=== PATIENT | female | born 1935 ===

== ENCOUNTER 2019-02-07 20:45 | Inpatient (IN) | payer MEDICARE ==
[2019-02-07] MEDS ORDERED: Morphine 4 MG/ML VIAL IV ONE (22:05)
--- NOTE | 2019-02-07 22:11 | ED PDOC ---
Lower Extremity Pain/Injury Time Seen by Provider: 02/07/19 21:54 Chief Complaint (Nursing): Hip Pain Chief Complaint (Provider): right leg pain History Per: Patient, Family (daughter) History/Exam Limitations: no limitations Onset/Duration Of Symptoms: Hrs (1) Current Symptoms Are (Timing): Still Present Additional Complaint(s): 83 y/o female brought in by EMS with daughter for evaluation of right leg pain status-post fall prior to arrival. Daughter states they were leaving a restaurant and patient didn't realize there was a second step after the first step out of the restaurant and fell onto right side and then hit head on fence after initial fall. Patient complaining of pain to right thigh, worse with movement. LOC unknown. Denies headache, dizziness, nausea/vomiting, numbness/weakness of extremities. Past Medical History Reviewed: Historical Data, Nursing Documentation, Vital Signs Vital Signs: Last Vital Signs Temp 97.6 F 02/07/19 20:55 Pulse 74 02/07/19 20:55 Resp 16 02/07/19 20:55 BP 133/66 02/07/19 20:55 Pulse Ox 98 02/07/19 20:55 - Medical History PMH: No Chronic Diseases - Surgical History Surgical History: Appendectomy - Family History Family History: States: No Known Family Hx - Allergies Allergies/Adverse Reactions: Allergies Allergy/AdvReac Type Severity Reaction Status Date / Time No Known Allergies Allergy Verified 02/07/19 20:55 Review of Systems ROS Statement: Except As Marked, All Systems Reviewed And Found Negative Musculoskeletal: Positive for: Leg Pain (right ) Physical Exam - Reviewed Nursing Documentation Reviewed: Yes Vital Signs Reviewed: Yes - Physical Exam Appears: Positive for: Well, Non-toxic, Uncomfortable Head Exam: Positive for: ATRAUMATIC, NORMAL INSPECTION, NORMOCEPHALIC Skin: Positive for: Normal Color Eye Exam: Positive for: Normal appearance ENT: Positive for: Normal ENT Inspection Cardiovascular/Chest: Positive for: Regular Rate, Rhythm Respiratory: Positive for: Normal Breath Sounds Gastrointestinal/Abdominal: Positive for: Normal Exam Back: Positive for: Normal Inspection Extremity: Positive for: Tenderness (proximal right medial thigh; no ecchymosis, edema, noted. + right external rotation. Limited ROm due to pain. Distal NV/motor intact), Capillary Refill (<3 sec b/l LE) Neurological/Psych: Positive for: Awake, Alert, Oriented (x3) - Laboratory Results Result Diagrams: 02/07/19 23:50 02/07/19 23:50 - ECG ECG: Positive for: Viewed By Me (reviewed by ED attending) ECG Rhythm: Positive for: Sinus Rhythm O2 Sat by Pulse Oximetry: 98 - Radiology X-Ray: Viewed By Me X-Ray Interpretation: No Acute Disease ((patient wearing underwire bra and girdle)) - Progress ED Course And Treament: -right femur xray -right hip xray -CT head -IV morphine EXAM: CT Head without Intravenous Contrast. CLINICAL HISTORY: Fall TECHNIQUE: Axial computed tomography images of the head/brain without intravenous contrast. 727.10 mGy-cm COMPARISON: None provided. FINDINGS: BRAIN No acute intraparenchymal hemorrhage. No mass lesion. No CT evidence for acute territorial infarct. No midline shift or extra-axial collections. Moderate age appropriate cerebral/cerebellar atrophy is noted. There are bilateral pe riventricular and subcortical white matter hypolucencies compatible with mild chronic microvascular disease. VENTRICLES: No hydrocephalus. ORBITS: The orbits are unremarkable. SINUSES AND MASTOIDS: The paranasal sinuses and mastoid air cells are clear. BONES: No fracture. SOFT TISSUES: Unremarkable. IMPRESSION: 1. No acute intracranial abnormality. 2. Moderate age appropriate cerebral/cerebellar atrophy. 3. Mild chronic microvascular disease EXAM: CR right Hip, 2 View. CLINICAL HISTORY: Fall COMPARISON: None provided. FINDINGS: BONES: There is diffuse osteoporosis. A comminuted intertrochanteric-subtrochanteric fracture of the right femoral neck is identified. There is some coxa plana angulation deformity at the fracture site present. No aggressive appearing osseous lesion. JOINTS: No dislocation. Mild arthritic narrowing is seen within both SI joints. The hip joint spaces are normal. SOFT TISSUES: The soft tissues are unremarkable. IMPRESSION: 1. Comminuted intertrochanteric-subtrochanteric fracture of the right femur. 2. Mild arthritic narrowing of both SI joints Case discussed with Dr. Florian, medical service on-call, for admission Case discussed with Dr. Marks, Ortho on-call for consult; recommends CT hip CT scan of the right hip without contrast. Indication: Fracture. Technique: Axial CT scan images without contrast. Reformatted coronal and sagittal images. Comparison: 02/07/2019. Findings: Moderate osteopenia of the bones. Acute comminuted displaced right intertrochanteric fracture. There are changes of degenerative joint disease. Impression: Acute comminuted displaced right intertrochanteric fracture Disposition - Clinical Impression Clinical Impression: Fracture, intertrochanteric, right femur - Patient ED Disposition Is Patient to be Admitted: Yes - Disposition Disposition Time: 00:15 Condition: FAIR
[2019-02-07 23:59] LABS: BASO # 0.1 K/uL (0.0-0.2); BASO % 0.6 % (0.0-2.0); EOS % 0.3 % (0.0-4.0); HEMOGLOBIN 12.7 g/dL (12.0-16.0); LYMPH # 1.4 K/uL (1.0-4.3); LYMPH % 11.1 % (20.0-40.0); MEAN CELL VOLUME 95.8 fl (81.0-99.0); MEAN CORPUSCULAR HEMOGLOBIN 31.7 pg (27.0-31.0); MEAN CORPUSCULAR HGB CONC 33.1 g/dL (33.0-37.0); MEAN PLATELET VOLUME 7.8 fl (7.2-11.7); MONO # 0.5 K/uL (0.0-0.8); NEUT # 10.2 K/uL (1.8-7.0); NRBC % 0.1 % (0.0-0.0); RED CELL DISTRIBUTION WIDTH 14.5 % (11.5-14.5); WHITE BLOOD COUNT 12.2 K/uL (4.8-10.8)
[2019-02-08 00:04] LABS: PROTHROMBIN TIME 11.7 Seconds (9.8-13.1)
[2019-02-08 00:08] LABS: ALB/GLOB RATIO 1.4 (1.0-2.1); ALT/SGPT 26 U/L (9-52); AST/SGOT 30 U/L (14-36); BLOOD UREA NITROGEN 25 mg/dl (7-17); CALCIUM 8.9 mg/dL (8.4-10.2); GFR NON-AFRICAN AMERICAN > 60
[2019-02-08] MEDS ORDERED: Morphine 4 MG/ML VIAL IV PRN (04:30)
[2019-02-08] MEDS: Dextrose 5%/0.45% NS 1,000 ML IV SCH ×3 (06:51→20:45)
--- NOTE | 2019-02-08 09:02 | CP.PCM.CON ---
History of Present Illness - History of Present Illness History of Present Illness: 83 y/o female admitted with Fx Right Femur after a trip and fall Pt has no medical illnesses EKG: Normal Sinus Rhythm Echo: Good LV function EF: 65 - 70% Labs: WNL Past Patient History - Past Medical History & Family History Past Medical History?: Yes - Past Social History Smoking Status: Never Smoked - CARDIAC Hx Cardiac Disorders: No - PULMONARY Hx Respiratory Disorders: No - NEUROLOGICAL Hx Neurological Disorder: No - HEENT Hx HEENT Problems: No - RENAL Hx Chronic Kidney Disease: No - ENDOCRINE/METABOLIC Hx Endocrine Disorders: No - HEMATOLOGICAL/ONCOLOGICAL Hx Blood Disorders: No - INTEGUMENTARY Hx Dermatological Problems: No - MUSCULOSKELETAL/RHEUMATOLOGICAL Hx Musculoskeletal Disorders: No - GASTROINTESTINAL Hx Gastrointestinal Disorders: No - GENITOURINARY/GYNECOLOGICAL Hx Genitourinary Disorders: No - PSYCHIATRIC Hx Psychophysiologic Disorder: No - SURGICAL HISTORY Hx Surgeries: Yes Hx Appendectomy: Yes - ANESTHESIA Hx Anesthesia: Yes Hx Anesthesia Reactions: No Meds Allergies/Adverse Reactions: Allergies Allergy/AdvReac Type Severity Reaction Status Date / Time No Known Allergies Allergy Verified 02/07/19 20:55 - Medications Medications: Current Medications Acetaminophen (Tylenol 325mg Tab) 650 mg PO Q4 PRN PRN Reason: Pain, Mild (1-3) Dextrose/Sodium Chloride (Dextrose 5%/0.45% Ns 1000 Ml) 1,000 mls @ 80 mls/hr IV .[id number] JAY[facility] Stop: 02/09/19 06:16 Last Admin: 02/08/19 06:51 Dose: 80 mls/hr Ketorolac Tromethamine (Toradol) 30 mg IVP Q6 PRN PRN Reason: Pain, moderate (4-7) Morphine Sulfate (Morphine) 2 mg IVP Q4 PRN PRN Reason: Pain, severe (8-10) Physical Exam - Respiratory Exam Respiratory Exam: NORMAL BREATHING PATTERN - Cardiovascular Exam Cardiovascular Exam: REGULAR RHYTHM Results - Vital Signs Recent Vital Signs: Last Vital Signs Temp 97.7 F 02/08/19 08:07 Pulse 79 02/08/19 08:07 Resp 18 02/08/19 08:07 BP 118/65 02/08/19 08:07 Pulse Ox 93 L 02/08/19 08:07 - Labs Result Diagrams: 02/07/19 23:50 02/07/19 23:50 Labs: Laboratory Results - last 24 hr 02/07/19 02/07/19 02/07/19 23:50 23:50 23:50 WBC 12.2 H RBC 4.00 Hgb 12.7 Hct 38.3 MCV 95.8 MCH 31.7 H MCHC 33.1 RDW 14.5 Plt Count 223 MPV 7.8 Neut % (Auto) 84.0 H Lymph % (Auto) 11.1 L [place] % (Auto) 4.0 Eos % (Auto) 0.3 Baso % (Auto) 0.6 Neut # (Auto) 10.2 H Lymph # (Auto) 1.4 [place] # (Auto) 0.5 Eos # (Auto) 0.0 Baso # (Auto) 0.1 PT 11.7 INR 1.0 APTT 29.0 Sodium 139 Potassium 4.4 Chloride 101 Carbon Dioxide 28 Anion Gap 14 BUN 25 H Creatinine 0.8 Est GFR ( Amer) > 60 Est GFR (Non-Af Amer) > 60 Random Glucose 117 H Calcium 8.9 Total Bilirubin 0.5 AST 30 ALT 26 Alkaline Phosphatase 63 Total Protein 6.9 Albumin 4.0 Globulin 2.9 Albumin/Globulin Ratio 1.4 Assessment & Plan (1) Fracture, intertrochanteric, right femur Assessment and Plan: Cardiac nunez the patient is cleared for surgery at any time Status: Acute
--- NOTE | 2019-02-08 09:04 | CT ---
Date of service: 02/07/2019 PROCEDURE: CT HEAD WITHOUT CONTRAST. HISTORY: fall COMPARISON: None available. TECHNIQUE: Axial computed tomography images were obtained through the head/brain without intravenous contrast. Radiation dose: Total exam DLP = 727.1 mGy-cm. This CT exam was performed using one or more of the following dose reduction techniques: Automated exposure control, adjustment of the mA and/or kV according to patient size, and/or use of iterative reconstruction technique. FINDINGS: HEMORRHAGE: No intracranial hemorrhage. BRAIN: There are mild chronic microangiopathic changes. There is no mass, mass effect or abnormal extra-axial fluid collection. There is no territorial infarction. The midline sagittal structures are normal. VENTRICLES: There is mild age-related global parenchymal volume loss and proportionate enlargement of the ventricles and cortical sulci. CALVARIUM: There is no calvarial fracture or extracranial soft tissue swelling. PARANASAL SINUSES: Predominantly clear. MASTOID AIR CELLS: Predominantly clear. OTHER FINDINGS: None. IMPRESSION: No acute intracranial abnormality. A preliminary report was provided by [employer].
--- NOTE | 2019-02-08 09:13 | CP.PCM.CON ---
History of Present Illness - History of Present Illness History of Present Illness: Orthopedic consult: Dr. Rodríguez Patient is an 83 y/o female c/o R hip pain following fall injury in front of a restaurant yesterday. Daughter is at bedside who witnessed fall as she was exiting restaurant and fell down two steps onto her right side. She experienced severe R hip pain and was unable to get up and WB. She did hit her head but did not have LOC or dizziness. She denies any other injuries. The pain is sharp and stabbing and located to the right groin. The pain worsens with movement and alleviates with inactivity. She denies numbness/tingling/radiation of pain. She denies any CP/SOB/N/V/D/fever/dysuria/melena. She is from [place] and is visiting for the weekend. PMH: denies PSH: , appendectomy meds: as per Med rec allergy: NKDA SH: denies tobacco/ETOH/drug use Review of Systems - Review of Systems All systems: reviewed and no additional remarkable complaints except Review of Systems: as per HPI Past Patient History - Past Medical History & Family History Past Medical History?: Yes Past Family History: Reviewed and not pertinent - Past Social History Smoking Status: Never Smoked - CARDIAC Hx Cardiac Disorders: No - PULMONARY Hx Respiratory Disorders: No - NEUROLOGICAL Hx Neurological Disorder: No - HEENT Hx HEENT Problems: No - RENAL Hx Chronic Kidney Disease: No - ENDOCRINE/METABOLIC Hx Endocrine Disorders: No - HEMATOLOGICAL/ONCOLOGICAL Hx Blood Disorders: No - INTEGUMENTARY Hx Dermatological Problems: No - MUSCULOSKELETAL/RHEUMATOLOGICAL Hx Musculoskeletal Disorders: No - GASTROINTESTINAL Hx Gastrointestinal Disorders: No - GENITOURINARY/GYNECOLOGICAL Hx Genitourinary Disorders: No - PSYCHIATRIC Hx Psychophysiologic Disorder: No - SURGICAL HISTORY Hx Surgeries: Yes Hx Appendectomy: Yes - ANESTHESIA Hx Anesthesia: Yes Hx Anesthesia Reactions: No Meds Allergies/Adverse Reactions: Allergies Allergy/AdvReac Type Severity Reaction Status Date / Time No Known Allergies Allergy Verified 02/07/19 20:55 - Medications Medications: Current Medications Acetaminophen (Tylenol 325mg Tab) 650 mg PO Q4 PRN PRN Reason: Pain, Mild (1-3) Dextrose/Sodium Chloride (Dextrose 5%/0.45% Ns 1000 Ml) 1,000 mls @ 80 mls/hr IV .[id number] [facility] Stop: 02/09/19 06:16 Last Admin: 02/08/19 06:51 Dose: 80 mls/hr Ketorolac Tromethamine (Toradol) 30 mg IVP Q6 PRN PRN Reason: Pain, moderate (4-7) Morphine Sulfate (Morphine) 2 mg IVP Q4 PRN PRN Reason: Pain, severe (8-10) Last Admin: 02/08/19 09:02 Dose: 2 mg Physical Exam - Constitutional Appears: Well, No Acute Distress - Head Exam Head Exam: ATRAUMATIC, NORMOCEPHALIC - Eye Exam Eye Exam: EOMI, Normal appearance - ENT Exam ENT Exam: Mucous Membranes Moist - Respiratory Exam Respiratory Exam: NORMAL BREATHING PATTERN - Extremities Exam Additional comments: R hip: no lesions/masses/erythema tenderness to groin and over greater troch sensation intact SP/DP/TN motor intact EHL/FHL/TA/G pedal pulse intact calves soft NT b/l L hip: no lesions/masses/erythema no tenderness sensation intact SP/DP/TN motor intact EHL/FHL/TA/G pedal pulse intact - Neurological Exam Neurological exam: Alert, Oriented x3 Results - Vital Signs Recent Vital Signs: Last Vital Signs Temp 97.7 F 02/08/19 08:07 Pulse 79 02/08/19 08:07 Resp 18 02/08/19 08:07 BP 118/65 02/08/19 08:07 Pulse Ox 93 L 02/08/19 08:07 - Labs Result Diagrams: 02/07/19 23:50 02/07/19 23:50 Labs: Laboratory Results - last 24 hr 02/07/19 02/07/19 02/07/19 23:50 23:50 23:50 WBC 12.2 H RBC 4.00 Hgb 12.7 Hct 38.3 MCV 95.8 MCH 31.7 H MCHC 33.1 RDW 14.5 Plt Count 223 MPV 7.8 Neut % (Auto) 84.0 H Lymph % (Auto) 11.1 L Hunt % (Auto) 4.0 Eos % (Auto) 0.3 Baso % (Auto) 0.6 Neut # (Auto) 10.2 H Lymph # (Auto) 1.4 Hunt # (Auto) 0.5 Eos # (Auto) 0.0 Baso # (Auto) 0.1 PT 11.7 INR 1.0 APTT 29.0 Sodium 139 Potassium 4.4 Chloride 101 Carbon Dioxide 28 Anion Gap 14 BUN 25 H Creatinine 0.8 Est GFR ( Amer) > 60 Est GFR (Non-Af Amer) > 60 Random Glucose 117 H Calcium 8.9 Total Bilirubin 0.5 AST 30 ALT 26 Alkaline Phosphatase 63 Total Protein 6.9 Albumin 4.0 Globulin 2.9 Albumin/Globulin Ratio 1.4 - Impressions Impression: Accession No. : [id number] Patient Name / ID : VERONIQUE Nguyễn / [id number] Exam Date : 02/07/2019 22:48:40 ( Approved ) Study Comment : Sex / Age : F / 83Y Creator : rashmi ridley Dictator : Palmer Sue MD [employer] : Medical Records Director : Palmer Sue MD Approver2 : Report Date : 02/07/2019 23:10:23 My Comment : Date of service: 02/07/2019 PROCEDURE: Pelvis/right hip HISTORY: fall COMPARISON: February 07, 2019. TECHNIQUE: Standard protocol for this study/examination. FINDINGS: Redemonstration of known right inter trochanteric fracture. Mild degenerative changes both hips. Intact pelvic ring bilaterally. IMPRESSION: Comminuted intertrochanteric fracture proximal right femur. Concordant findings (preliminary report) provided by [facility] [[email or web address]] IVÁN. Accession No. : [id number] Patient Name / ID : VERONIQUE Nguyễn / [id number] Exam Date : 02/08/2019 00:26:25 ( Approved ) Study Comment : Sex / Age : F / 83Y Creator : Palmer Sue MD Dictator : Palmer Sue MD [employer] : Medical Records Director : Palmer Sue MD Approver2 : Report Date : 02/08/2019 16:12:27 My Comment : Date of service: 02/08/2019 PROCEDURE: CT right hemipelvis HISTORY: fracture COMPARISON: February 07, 2019. Plain film radiographs TECHNIQUE: 2.5 mm axial acquisition and display. Coronal and sagittal reconstructions. Supplemental 3D volume rendering dose report (mGy-cm): 581.63 FINDINGS: Impacted, comminuted fracture proximal right femur. Avulsion of the lesser trochanter. Slightly displaced transverse fracture through the greater trochanter. Preservation of femoral acetabular relationship. No pelvic ring abnormalities detected. Soft tissue swelling at the site of the fracture and intramuscular hematoma identified within the iliacus muscle. IMPRESSION: Acute and comminuted proximal femoral fracture described in greater detail above. Concordant results (preliminary interpretation) provided by [facility]. Procedure Completed: 00:28. Preliminary Report: Interpreted and electronically signed: 00:56. Final Interpretation: 16:12. February 08, 2019 Assessment & Plan (1) Fracture, intertrochanteric, right femur Assessment and Plan: Dr. Rodríguez recommends R hip ORIF with IM nail NPO pMN hold anticoagulants b/l SCD bucks traction medical/cardiac clearance appreciated Risks/benefits/alternatives explained to the patient and daughter who agree to proceed with above procedure above d/w Dr. Rodríguez in agreement Status: Acute - Date & Time Date: 02/08/19 Time: 08:30
--- NOTE | 2019-02-08 09:19 | CARD ---
APPROVED REPORT Date of service: 02/08/2019 EKG Measurement Heart [id number] <Conclusion> Normal sinus rhythm Inferior infarct, age undetermined Abnormal ECG
--- NOTE | 2019-02-08 10:47 | RAD ---
Date of service: 02/07/2019 PROCEDURE: Right femur HISTORY: fall, leg pain COMPARISON: February 08, 2019 CT pelvis-right hip TECHNIQUE: Standard protocol for this study/examination. FINDINGS: Comminuted intertrochanteric fracture with avulsion of the lesser trochanter and adjacent major fracture fragment. Preservation of femoral acetabular relationship. No visible pelvic ring abnormalities. Distally, incomplete visualization of degenerative changes right knee. IMPRESSION: Comminuted intertrochanteric fracture proximal right femur.
--- NOTE | 2019-02-08 10:48 | RAD ---
Date of service: 02/07/2019 PROCEDURE: Pelvis/right hip HISTORY: fall COMPARISON: February 07, 2019. TECHNIQUE: Standard protocol for this study/examination. FINDINGS: Redemonstration of known right inter trochanteric fracture. Mild degenerative changes both hips. Intact pelvic ring bilaterally. IMPRESSION: Comminuted intertrochanteric fracture proximal right femur. Concordant findings (preliminary report) provided by [facility].
--- NOTE | 2019-02-08 10:59 | RAD ---
Date of service: 02/08/2019 HISTORY: admit COMPARISON: No prior. FINDINGS: LUNGS: No active pulmonary disease. PLEURA: No significant pleural effusion identified, no pneumothorax apparent. CARDIOVASCULAR: No atherosclerotic calcification present No radiographic findings to suggest acute or significant cardiovascular disease. OSSEOUS STRUCTURES: No significant abnormalities. VISUALIZED UPPER ABDOMEN: Normal. OTHER FINDINGS: None. IMPRESSION: No active disease.
[2019-02-08] MEDS ORDERED: Morphine 4 MG/ML VIAL ONE (15:33)
[2019-02-08] MEDS ORDERED: Morphine 4 MG/ML VIAL IVP PRN (15:45)
--- NOTE | 2019-02-08 15:46 | CP.PCM.HP ---
History of Present Illness - History of Present Illness History of Present Illness: CC: Fall/Trauma. 83 y/o F, no chronic PMHx, was brought on 02/07/19 to ER [facility] [place], via EMS, for evaluation of R hip/R leg pain, described as stabbing, throbbing, aching, constant , severe intensity 10:10, as per daughter, associated to a witnessed strip and fall while in a restaurant minutes prior to arrival to ED, Pt with no relief of symptoms. Worsening symptoms: Limited ROM on R leg, swelling R hip. Aggravate factor: Position changes/ lifting/bending/twisting. Denied: Head pain/trauma, fever, chills, n/v/d, abdominal pain, urinary symptoms, CP, syncope, palpitations, SOB, cough, sick contact, recent travel out of [facility]. R Hip CT : Impacted comminuted Fx proximal R Femur. Head CT: No intracranial abnormality. CXR: No active disease. EKG: Normal sinus rhythm, inferior infarct age undetermined. Present on Admission - Present on Admission Any Indicators Present on Admission: No Review of Systems - Constitutional Constitutional: Other (negative) - EENT Eyes: Other (negative) Ears: Other (negative) Nose/Mouth/Throat: Other (negative) - Cardiovascular Cardiovascular: Other (negative) - Respiratory Respiratory: Other (negative) - Gastrointestinal Gastrointestinal: Other (negative) - Genitourinary Genitourinary: Other (negative) - Musculoskeletal Musculoskeletal: Radiating Pain into Limb, Other (R hip and R leg pain 2nd to fall.) - Integumentary Integumentary: Swelling, Other (negative) - Neurological Neurological: Other (negative) - Psychiatric Psychiatric: Other - Endocrine Endocrine: Other (negative) - Hematologic/Lymphatic Hematologic: Other (negative) Past Patient History - Past Medical History & Family History Past Medical History?: Yes Pertinent Family History: Unknown - Past Social History Smoking Status: Never Smoked Alcohol: None Drugs: Denies Home Situation {Lives}: With Family - CARDIAC Hx Cardiac Disorders: No - PULMONARY Hx Respiratory Disorders: No - NEUROLOGICAL Hx Neurological Disorder: No - HEENT Hx HEENT Problems: No - RENAL Hx Chronic Kidney Disease: No - ENDOCRINE/METABOLIC Hx Endocrine Disorders: No - HEMATOLOGICAL/ONCOLOGICAL Hx Blood Disorders: No - INTEGUMENTARY Hx Dermatological Problems: No - MUSCULOSKELETAL/RHEUMATOLOGICAL Hx Musculoskeletal Disorders: No - GASTROINTESTINAL Hx Gastrointestinal Disorders: No - GENITOURINARY/GYNECOLOGICAL Hx Genitourinary Disorders: No - PSYCHIATRIC Hx Psychophysiologic Disorder: No - SURGICAL HISTORY Hx Surgeries: Yes Hx Appendectomy: Yes - ANESTHESIA Hx Anesthesia: Yes Hx Anesthesia Reactions: No Meds Allergies/Adverse Reactions: Allergies Allergy/AdvReac Type Severity Reaction Status Date / Time No Known Allergies Allergy Verified 02/07/19 20:55 Physical Exam - Constitutional Appears: No Acute Distress - Head Exam Head Exam: NORMAL INSPECTION - Eye Exam Eye Exam: PERRL - ENT Exam ENT Exam: Normal Exam - Neck Exam Neck exam: Positive for: Normal Inspection - Respiratory Exam Respiratory Exam: NORMAL BREATHING PATTERN - Cardiovascular Exam Cardiovascular Exam: REGULAR RHYTHM - GI/Abdominal Exam GI & Abdominal Exam: Normal Bowel Sounds, Soft - Extremities Exam Extremities exam: Positive for: tenderness (R hip), pedal pulses present Additional comments: decreased ROM R hip/L/E, lateral rotation RLE, neuromuscular status distal good - Back Exam Back exam: NORMAL INSPECTION - Neurological Exam Neurological exam: Alert, Oriented x3 - Psychiatric Exam Psychiatric exam: Normal Mood - Skin Skin Exam: Normal Color, Warm Results - Vital Signs Recent Vital Signs: Last Vital Signs Temp 97.7 F 02/08/19 08:07 Pulse 79 02/08/19 08:07 Resp 18 02/08/19 08:07 BP 118/65 02/08/19 08:07 Pulse Ox 93 L 02/08/19 08:07 reviewed J.PJignesh - Labs Result Diagrams: 02/07/19 23:50 02/07/19 23:50 Labs: Laboratory Results - last 24 hr 02/07/19 02/07/19 02/07/19 23:50 23:50 23:50 WBC 12.2 H RBC 4.00 Hgb 12.7 Hct 38.3 MCV 95.8 MCH 31.7 H MCHC 33.1 RDW 14.5 Plt Count 223 MPV 7.8 Neut % (Auto) 84.0 H Lymph % (Auto) 11.1 L Rooks % (Auto) 4.0 Eos % (Auto) 0.3 Baso % (Auto) 0.6 Neut # (Auto) 10.2 H Lymph # (Auto) 1.4 Rooks # (Auto) 0.5 Eos # (Auto) 0.0 Baso # (Auto) 0.1 PT 11.7 INR 1.0 APTT 29.0 Sodium 139 Potassium 4.4 Chloride 101 Carbon Dioxide 28 Anion Gap 14 BUN 25 H Creatinine 0.8 Est GFR ( Amer) > 60 Est GFR (Non-Af Amer) > 60 Random Glucose 117 H Calcium 8.9 Total Bilirubin 0.5 AST 30 ALT 26 Alkaline Phosphatase 63 Total Protein 6.9 Albumin 4.0 Globulin 2.9 Albumin/Globulin Ratio 1.4 reviewed J.P. - EKG Data EKG comments: reviewed J.P. - Imaging and Cardiology Chest x-ray Status: Report reviewed by me (JJigneshP.) CT scan - head Status: Report reviewed by me (PatelP.) Hip/Pelvis X-Ray Status: Report reviewed by me Hip CT Status: Report reviewed by me Femur X-Ray Status: Report reviewed by me Assessment & Plan (1) Fracture, intertrochanteric, right femur Status: Acute Priority: High (2) Pain in right hip Status: Acute Priority: High (3) Status post fall Status: Acute Priority: High - Assessment and Plan (Free Text) Plan: Continue Morphine, Toradol, Dextrose IV, NPO after MN, hold anticoagulants, for possible R hip ORIF with IM nail tomorrow, Cardiology and Orthopedic consult appreciated., Patient is medically cleared for Surgery - Date & Time Date: 02/08/19 Time: 14:50
--- NOTE | 2019-02-08 16:16 | CT ---
Date of service: 02/08/2019 PROCEDURE: CT right hemipelvis HISTORY: fracture COMPARISON: February 07, 2019. Plain film radiographs TECHNIQUE: 2.5 mm axial acquisition and display. Coronal and sagittal reconstructions. Supplemental 3D volume rendering dose report (mGy-cm): 581.63 FINDINGS: Impacted, comminuted fracture proximal right femur. Avulsion of the lesser trochanter. Slightly displaced transverse fracture through the greater trochanter. Preservation of femoral acetabular relationship. No pelvic ring abnormalities detected. Soft tissue swelling at the site of the fracture and intramuscular hematoma identified within the iliacus muscle. IMPRESSION: Acute and comminuted proximal femoral fracture described in greater detail above. Concordant results (preliminary interpretation) provided by RASHAD MINOR. Procedure Completed: 00:28. Preliminary Report: Interpreted and electronically signed: 00:56. Final Interpretation: 16:12. February 08, 2019
--- NOTE | 2019-02-08 19:25 | CARD ---
APPROVED REPORT Date of service: 02/08/2019 EXAM: Two-dimensional and M-mode echocardiogram with Doppler and color Doppler. Other Information Quality : AverageRhythm : NSR Technically limited study due to Fractured Hip INDICATION Pre-Op 2D DIMENSIONS IVSd0.84 (0.7-1.1cm)LVDd3.80 (3.9-5.9cm) LVOT Diameter2.03 (1.8-2.4cm)PWd0.87 (0.7-1.1cm) IVSs0.83 (0.8-1.2cm)LVDs2.52 (2.5-4.0cm) FS (%) 33.8 %PWs1.08 (0.8-1.2cm) M-Mode DIMENSIONS Left Atrium (MM)3.68 (2.5-4.0cm)IVSd0.62 (0.7-1.1cm) Aortic Root3.06 (2.2-3.7cm)LVDd6.74 (4.0-5.6cm) Aortic Cusp Exc.1.85 (1.5-2.0cm)PWd1.09 (0.7-1.1cm) IVSs1.12 cmFS (%) 34 % LVDs4.44 (2.0-3.8cm)PWs1.24 cm Aortic Valve AoV Peak Cxfakrah226.7cm/sAoV VTI19.9cmAO Peak GR.4mmHg LVOT Peak Gkfrixgr06.0cm/sLVOT VTI13.45cmAO Mean GR.2mmHg MARCELLO (VMAX)1.17fr5CPG (VTI)1.44cm2 Mitral Valve MV E Qichlmwk99.4cm/sMV DECEL WCIU644olMX A Mkrnukzb76.6cm/s MV YTI48xiW/A ratio0.6MVA (PHT)3.42cm2 TDI Lateral E' Peak V6.52cm/sMedial E' Peak V5.79cm/sE/Lateral E'5.1 E/Medial E'5.8 Tricuspid Valve TR Peak Atdoyzja201mx/sRAP WWGGTIYF08tkZpVO Peak Gr.26mmHg SMBH62cjYq LEFT VENTRICLE The left ventricle is normal size. There is normal left ventricular wall thickness. The left ventricular systolic function is normal. The estimated ejection fraction is 55-60% No regional wall motion abnormalities noted.. Transmitral Doppler flow pattern is Grade I-abnormal relaxation pattern. No left ventricle thrombus noted on this study. There is no ventricular septal defect visualized. There is no left ventricular aneurysm. There is no mass noted in the left ventricle. RIGHT VENTRICLE The right ventricle is normal size. There is normal right ventricular wall thickness. The right ventricular systolic function is normal. ATRIA The left atrium size is normal. The right atrium size is normal. The interatrial septum is intact with no evidence for an atrial septal defect. AORTIC VALVE The aortic valve is normal in structure. Mild aortic regurgitation is present. There is no aortic valvular stenosis. There is no aortic valvular vegetation. MITRAL VALVE The mitral valve is normal in structure. There is no evidence of mitral valve prolapse. There is no mitral valve stenosis. There is mild mitral valve regurgitation noted. TRICUSPID VALVE The tricuspid valve is normal in structure. There is mild tricuspid valve regurgitation noted. RVSP is calculated at 31 mm Hg. There is no tricuspid valve prolapse or vegetation. There is no tricuspid valve stenosis. PULMONIC VALVE The pulmonary valve is normal in structure. There is no pulmonic valvular regurgitation. There is no pulmonic valvular stenosis. GREAT VESSELS The aortic root is normal in size. The ascending aorta is normal in size. The pulmonary artery is normal. The IVC is normal in size and collapses >50% with inspiration. PERICARDIAL EFFUSION There is no pericardial effusion. There is no pleural effusion. <Conclusion> The estimated ejection fraction is 55-60% Transmitral Doppler flow pattern is Grade I-abnormal relaxation pattern. The left atrium size is normal. Mild aortic regurgitation is present. There is mild mitral valve regurgitation noted. There is mild tricuspid valve regurgitation noted. RVSP is calculated at 31 mm Hg.
[2019-02-09 03:10] LABS: SQUAMOUS EPITHIAL 7 /hpf (0-5); URINE BACTERIA RARE (<OCC); URINE BILIRUBIN NEGATIVE (NEGATIVE); URINE BLOOD SMALL (NEGATIVE); URINE CLARITY CLOUDY (Clear); URINE COLOR YELLOW (YELLOW); URINE GLUCOSE (UA) NEG (NEGATIVE); URINE LEUKOCYTE ESTERASE MOD Leu/uL (Negative); URINE PROTEIN NEGATIVE (NEGATIVE); URINE UROBILINOGEN 0.2-1.0 mg/dL (0.2-1.0)
[2019-02-09] MEDS: Dextrose 5%/0.45% NS 1,000 ML IV SCH (04:43)
[2019-02-09] MEDS ORDERED: Absorbable Gelatin Sponge Size 12-7 ONE (07:56)
[2019-02-09] MEDS ORDERED: Bacitracin Ointment 30 GM TUBE ONE (07:56)
[2019-02-09] MEDS ORDERED: Thrombin Topical 5,000 Int Units Spray Kit ONE (07:57)
[2019-02-09] MEDS ORDERED: Succinylcholine 200 mg/10 ml Inj IV ONE (09:25)
[2019-02-09] MEDS ORDERED: Rocuronium 10 mg/ml (5 ml) ONE ×3 (09:25→11:09)
[2019-02-09] MEDS ORDERED: Propofol 10 mg/ml Inj (20 ML) ONE (09:25)
[2019-02-09] MEDS ORDERED: Midazolam 2 MG/2 ML VIAL ONE (09:25)
[2019-02-09] MEDS ORDERED: Lactated Ringer's 1,000 ML IV ONE ×4 (09:40→13:00)
[2019-02-09] MEDS ORDERED: Phenylephrine 10 mg/ml Inj ONE ×2 (09:55→14:36)
[2019-02-09] MEDS ORDERED: Dexamethasone 4 mg/1 ml ONE (11:57)
[2019-02-09] MEDS ORDERED: Desflurane Inhalation Anesthetic Liq (240 ml) ONE (12:05)
[2019-02-09] MEDS ORDERED: Sodium Chloride 0.9% 1,000 ML IV ONE (12:55)
[2019-02-09] MEDS ORDERED: Neostigmine 1:1000 (1 mg/ml) Inj ONE (14:46)
[2019-02-09] MEDS ORDERED: Lactated Ringer's 500 ML IV ONE (15:10)
[2019-02-09] MEDS ORDERED: Oxycodone/Acetaminophen 5/325 mg Tab PO PRN (15:16)
[2019-02-09] MEDS ORDERED: HYDROmorphone 0.5 mg/0.5 ml ISec IVP PRN (15:21)
--- NOTE | 2019-02-09 15:29 | PCM.SURG1 ---
<Alfredo Moya - Last Filed: 02/09/19 15:33> Surgeon's Initial Post Op Note - Surgeon's Notes Surgeon: Trell Rodríguez MD Engineering Lab Technician: Alfredo Moya PA-C Type of Anesthesia: General Endo Anesthesia Administered By: Francis Bradford MD Pre-Operative Diagnosis: Right comminuted intertrochanteric hip fracture Operative Findings: see complete operative report Post-Operative Diagnosis: as above Operation Performed: 1. Right open reduction internal fixation with intermedullary nail. 2. Positioning of fluoroscopy and interpretation of video imaging. Specimen/Specimens Removed: none Estimated Blood Loss: EBL {In ML}: 1,000 Blood Products Given: PRBC (x2) Drains Used: No Drains Post-Op Condition: Good Date of Surgery/Procedure: 02/09/19 Time of Surgery/Procedure: 09:44 <Trell Marks S - Last Filed: 02/10/19 20:18> Surgeon's Initial Post Op Note - Surgeon's Notes Pre-Operative Diagnosis: Right hip comminuted, segmental, pertrochanteric hip fracture Operation Performed: Right hip: Open reduction and internal fixation with long hip nail (long TFN)
[2019-02-09] MEDS ORDERED: Lactated Ringer's 1,000 ML IV SCH (15:30)
[2019-02-09] MEDS ORDERED: ceFAZolin 1 GM in Sodium Chloride 0.9% 100 ML IVPB SCH (17:00)
[2019-02-09] MEDS: Lactated Ringer's 1,000 ML IV SCH ×3 (20:34→23:30)
[2019-02-09] MEDS: Docusate-Senna 50 mg-8.6 mg Tab PO SCH (21:41)
[2019-02-09 22:33] LABS: HEMOGLOBIN 10.1 g/dL (12.0-16.0); MEAN CELL VOLUME 91.7 fl (81.0-99.0); MEAN CORPUSCULAR HEMOGLOBIN 30.2 pg (27.0-31.0); MEAN CORPUSCULAR HGB CONC 32.9 g/dL (33.0-37.0); RBC 3.34 Mil/uL (3.80-5.20); RED CELL DISTRIBUTION WIDTH 16.2 % (11.5-14.5)
[2019-02-09] MEDS: ceFAZolin 1 GM in Sodium Chloride 0.9% 100 ML IVPB SCH (22:43)
[2019-02-09 22:56] LABS: BLOOD UREA NITROGEN 11 mg/dl (7-17); CALCIUM 7.2 mg/dL (8.4-10.2); GFR NON-AFRICAN AMERICAN > 60
[2019-02-10] MEDS: ceFAZolin 1 GM in Sodium Chloride 0.9% 100 ML IVPB SCH ×3 (05:53→21:39)
[2019-02-10 07:54] LABS: HEMOGLOBIN 8.9 g/dL (12.0-16.0); MEAN CELL VOLUME 90.5 fl (81.0-99.0); MEAN CORPUSCULAR HEMOGLOBIN 31.6 pg (27.0-31.0); MEAN CORPUSCULAR HGB CONC 34.9 g/dL (33.0-37.0); RBC 2.81 Mil/uL (3.80-5.20); RED CELL DISTRIBUTION WIDTH 16.4 % (11.5-14.5); WHITE BLOOD COUNT 8.8 K/uL (4.8-10.8)
[2019-02-10 08:11] LABS: BLOOD UREA NITROGEN 12 mg/dl (7-17); CALCIUM 7.7 mg/dL (8.4-10.2); GFR NON-AFRICAN AMERICAN > 60
[2019-02-10] MEDS ORDERED: Iodixanol 320 MG/ML 100 ML BOTTLE IV ONE (09:02)
[2019-02-10] MEDS ORDERED: Sodium Chloride 0.9% 50 ML IV ONE (09:02)
[2019-02-10] MEDS: Oxycodone/Acetaminophen 5/325 mg Tab PO PRN ×2 (09:12→15:19)
--- NOTE | 2019-02-10 11:40 | CT ---
Date of service: 02/10/2019 PROCEDURE: CT Chest with contrast (Pulmonary Angiogram) HISTORY: tachycardia COMPARISON: None available. TECHNIQUE: Axial computed tomography images were obtained of the chest in the pulmonary arterial phase of enhancement. Coronal and sagittal reformatted images were created and reviewed. Intravenous contrast dose: 90 milliliters Radiation dose: Total exam DLP = 247 mGy-cm. This CT exam was performed using one or more of the following dose reduction techniques: Automated exposure control, adjustment of the mA and/or kV according to patient size, and/or use of iterative reconstruction technique. FINDINGS: PULMONARY ARTERIES: There is evidence of bilateral pulmonary emboli. These appear to be within the proximal lower lobe segmental pulmonary arteries and subsegmental branches. No large central pulmonary embolism is seen. No appreciable embolism is seen in the right ventricle. And no appreciable right heart strain is clearly seen. Heart is enlarged. No pericardial effusion is seen. AORTA: Mild aneurysmal dilatation. Mild aortic atherosclerotic calcification or mural plaque present. LUNGS: Mild subsegmental atelectasis is seen at the lung bases. No segmental lung infiltrates are noted. No appreciable pulmonary nodules are seen. Mild interstitial change is noted. PLEURAL SPACES: Small bilateral posterior pleural fluid or posterior pleural thickening is seen. This is slightly greater on the left. HEART: Enlarged LYMPH NODES: A few small scattered shotty mediastinal lymph nodes are noted. BONES, CHEST WALL: Thoracic inlet shows evidence of mild heterogeneity of the right lobe of the thyroid gland. Tiny nodule is not excluded. Chest wall is otherwise intact without rib fracture. OTHER FINDINGS: No acute compression fractures seen in the spine. Hemangioma is seen in the midthoracic spine region. Sternum is intact. IMPRESSION: Bilateral lower lobe pulmonary emboli. No large central pulmonary embolism seen. Patient's nurse taking care of this patient was immediately notified of the findings at the time of this dictation.
[2019-02-10 12:01] VITALS: BMI 29.1
--- NOTE | 2019-02-10 12:21 | CARD ---
APPROVED REPORT Date of service: 02/09/2019 EKG Measurement Heart [id number] <Conclusion> Sinus tachycardia Low voltage QRS Inferior infarct, age undetermined Cannot rule out Anterior infarct, age undetermined Abnormal ECG
[2019-02-10 13:12] LABS: ABG ALLEN TEST YES; ARTERIAL BLOOD GAS HCO3 29.2 mmol/L (21-28); ARTERIAL BLOOD GAS O2 SAT 93.6 % (95-98); ARTERIAL BLOOD GAS PCO2 41 mm/Hg (35-45); ARTERIAL BLOOD GAS PH 7.47 (7.35-7.45); ARTERIAL BLOOD GAS PO2 51 mm/Hg (80-100); ARTERIAL BLOOD GAS TCO2 31.1 mmol/L (22-28)
[2019-02-10] MEDS: Enoxaparin 80 mg Syringe SC SCH ×2 (13:25→21:29)
--- NOTE | 2019-02-10 14:06 | CP.PCM.PN ---
Subjective - Date & Time of Evaluation Date of Evaluation: 02/10/19 Time of Evaluation: 11:20 - Subjective Subjective: F/U Fx R Femur s/p ORIF R Hip ORIF on 02-09 , Post Op Patient developed Tachycardia, no SOB , no C/P, Transferred to Telemetry, f/u CTA Chest P/E, Patient complains now of mild pain R Hip, R thigh , increased to moderate with movement, no SOB, no C/P Objective - Vital Signs/Intake and Output Vital Signs (last 24 hours): Temp Pulse Resp BP Pulse Ox 98.1 F 126 H 18 102/55 L 95 02/10/19 12:06 02/10/19 12:06 02/10/19 12:06 02/10/19 12:06 02/10/19 12:06 Intake and Output: 02/10/19 02/10/19 06:59 18:59 Intake Total 1520 Output Total 500 Balance 1020 - Medications Medications: Current Medications Acetaminophen (Tylenol 325mg Tab) 650 mg PO Q4 PRN PRN Reason: Pain, Mild (1-3) Docusate Sodium (Colace) 100 mg PO BID [facility] Enoxaparin Sodium (Lovenox) 70 mg SC Q12 [facility]; Protocol Last Admin: 02/10/19 13:25 Dose: 70 mg Ferrous Sulfate (Feosol) 325 mg PO BID [facility] Last Admin: 02/10/19 09:04 Dose: 325 mg Folic Acid (Folic Acid) 1 mg PO DAILY [facility] Last Admin: 02/10/19 09:04 Dose: 1 mg Hydromorphone HCl (Dilaudid) 0.5 mg IVP Q10M PRN PRN Reason: Pain, moderate (4-7) Lactated Ringer's (Lactated Ringer's) 1,000 mls @ 125 mls/hr IV .Q8H [facility] Last Admin: 02/09/19 23:30 Dose: Not Given Lactated Ringer's (Lactated Ringer's) 1,000 mls @ 100 mls/hr IV .Q10H [facility] Last Admin: 02/10/19 01:32 Dose: Not Given Cefazolin Sodium 1 gm/ Sodium (Chloride) 100 mls @ 100 mls/hr IVPB Q8@0640,1440,2240 [facility]; Protocol Stop: 02/10/19 23:39 Last Admin: 03/16/19 05:53 Dose: 100 mls/hr Ketorolac Tromethamine (Toradol) 30 mg IVP Q6 PRN PRN Reason: Pain, moderate (4-7) Last Admin: 02/08/19 18:40 Dose: 30 mg Morphine Sulfate (Morphine) 2 mg IVP Q4 PRN PRN Reason: Pain, severe (8-10) Last Admin: 02/10/19 05:52 Dose: 2 mg Ondansetron HCl (Zofran Inj) 4 mg IVP ONCE PRN PRN Reason: Nausea/Vomiting Oxycodone/Acetaminophen (Percocet 5/325 Mg Tab) 2 tab PO Q4 PRN PRN Reason: Pain, moderate (4-7) Stop: 02/12/19 15:17 Oxycodone/Acetaminophen (Percocet 5/325 Mg Tab) 1 tab PO Q4 PRN PRN Reason: Pain, Mild (1-3) Stop: 02/12/19 15:17 Last Admin: 02/10/19 09:12 Dose: 1 tab Senna/Docusate Sodium (Senokot S 50 Mg-8.6 Mg) 2 tab PO HS [facility] Last Admin: 02/09/19 21:41 Dose: 2 tab - Labs Labs: 02/10/19 05:30 02/10/19 05:30 PT 11.7 Seconds (9.8-13.1) 02/07/19 23:50 INR 1.0 02/07/19 23:50 APTT 29.0 Seconds (25.6-37.1) 02/07/19 23:50 - Constitutional Appears: No Acute Distress - Head Exam Head Exam: NORMAL INSPECTION - Eye Exam Eye Exam: PERRL - ENT Exam ENT Exam: Normal Exam - Neck Exam Neck Exam: Normal Inspection - Respiratory Exam Respiratory Exam: NORMAL BREATHING PATTERN - Cardiovascular Exam Cardiovascular Exam: REGULAR RHYTHM - GI/Abdominal Exam GI & Abdominal Exam: Soft, Normal Bowel Sounds - Extremities Exam Extremities Exam: Tenderness (R hip.) Additional comments: R Hip incision healing well, Neuromuscular distal status good, MARYCARMEN wrap RLE - Back Exam Back Exam: NORMAL INSPECTION - Neurological Exam Neurological Exam: Alert, Oriented x3. absent: Motor Sensory Deficit - Psychiatric Exam Psychiatric exam: Normal Mood - Skin Skin Exam: Normal Color, Warm Assessment and Plan (1) Fracture, intertrochanteric, right femur Status: Acute (2) Pain in right hip Status: Acute (3) Status post fall Status: Acute (4) Anemia Status: Acute (5) Pulmonary embolism Status: Acute - Assessment and Plan (Free Text) Plan: Lovenox for Tx PE, continue Iron, Ancef Morphine , Percocet, f/u CBC am, f/u Venous Dopler L/E
[2019-02-10] MEDS ORDERED: Oxycodone/Acetaminophen 5/325 mg Tab PO PRN (15:22)
--- NOTE | 2019-02-10 20:38 | CP.PCM.PN ---
Subjective - Date & Time of Evaluation Date of Evaluation: 02/09/19 Time of Evaluation: 08:30 - Subjective Subjective: Pt very pleasant and comfortable lying in bed. confirms R hip pain. she can recall the fall and denies LOC or dizziness/syncopal fall. Denies dizzyness, CP, SOB, LOWRY, N&V, fevers, chills, numbness and tingling. Objective - Vital Signs/Intake and Output Vital Signs (last 24 hours): Temp Pulse Resp BP Pulse Ox 97.7 F 94 H 18 109/65 94 L 02/10/19 16:04 02/10/19 16:04 02/10/19 16:04 02/10/19 16:04 02/10/19 16:04 - Medications Medications: Current Medications Acetaminophen (Tylenol 325mg Tab) 650 mg PO Q4 PRN PRN Reason: Pain, Mild (1-3) Docusate Sodium (Colace) 100 mg PO BID [facility] Last Admin: 02/10/19 18:43 Dose: 100 mg Enoxaparin Sodium (Lovenox) 70 mg SC Q12 [facility]; Protocol Last Admin: 02/10/19 13:25 Dose: 70 mg Ferrous Sulfate (Feosol) 325 mg PO BID [facility] Last Admin: 02/10/19 18:44 Dose: 325 mg Folic Acid (Folic Acid) 1 mg PO DAILY [facility] Last Admin: 02/10/19 09:04 Dose: 1 mg Cefazolin Sodium 1 gm/ Sodium (Chloride) 100 mls @ 100 mls/hr IVPB Q8@0640,1440,2240 [facility]; Protocol Stop: 02/10/19 23:39 Last Admin: 02/10/19 15:20 Dose: 100 mls/hr Cefazolin Sodium 2 gm/ Sodium (Chloride) 100 mls @ 100 mls/hr IVPB Q8 [facility]; Protocol Stop: 02/14/19 01:59 Morphine Sulfate (Morphine) 2 mg IVP Q4 PRN PRN Reason: Pain, severe (8-10) Last Admin: 02/10/19 05:52 Dose: 2 mg Ondansetron HCl (Zofran Inj) 4 mg IVP ONCE PRN PRN Reason: Nausea/Vomiting Oxycodone/Acetaminophen (Percocet 5/325 Mg Tab) 1 tab PO Q4 PRN PRN Reason: Pain, moderate (4-7) Stop: 02/12/19 15:17 Oxycodone/Acetaminophen (Percocet 5/325 Mg Tab) 2 tab PO Q4 PRN PRN Reason: Pain, severe (8-10) Stop: 02/12/19 15:17 Senna/Docusate Sodium (Senokot S 50 Mg-8.6 Mg) 2 tab PO HS [facility] Last Admin: 02/09/19 21:41 Dose: 2 tab - Labs Labs: 02/10/19 05:30 02/10/19 05:30 PT 11.7 Seconds (9.8-13.1) 02/07/19 23:50 INR 1.0 02/07/19 23:50 APTT 29.0 Seconds (25.6-37.1) 02/07/19 23:50 - Extremities Exam Additional comments: Right Lower Extremity: +++ groin pain, +++ Log roll, unable to tolerate any ROM at hip -swelling/erythema/deformity/warmth, + 5/5 motor strength Hip Flex/ Hip Ext/ Knee flex/ Knee Ext/ Ankle Dorsiflex/ Ankle Plantarflex/ EHL/ FHL, Sensory intact L2-S1/ DPN/SPN/TN/SN, 2+ DP, DTR 2+, - Babinski, no beats of clonus Left Lower Extremity: -ttp, -swelling/erythema/deformity/warmth, - groin ttp, - GT ttp, FROM= Abd to 45 degrees, Flex to 120 degrees, Ext to 10 degrees, ER to 45 degrees, IR to 40 degrees,- TOBY - NURYS - SI mal alignment - instability, - log roll, - NURYS, - Impingement w/ flex & IR, - Impingement w/ Ext & ER, - internal snapping, - external snapping, + 5/5 motor strength Hip Flex/ Hip Ext/ Knee flex/ Knee Ext/ Ankle Dorsiflex/ Ankle Plantarflex/ EHL/ FHL, Sensory intact L2-S1/ DPN/SPN/TN/SN, 2+ DP, DTR 2+, - Babinski, no beats of clonus Assessment and Plan (1) Pain in right hip Assessment & Plan: 83 yo Female s/p fall onto Right hip Dx= Right hip displaced, comminuted, pertrochanteric fracture PLAN: R hip: -after having muliptle long discussions with the pt's daughter in person and on the phone, they have agreed to proceed w/ tx here at [facility] -indicated for closed vs open reduction and internal fixation R hip fracture -she is a community ambulator w/o assist devices, independently living and functioning, 100% independent ADL's -medically evaluated and optimized for surgery by primary team, Dr. Florian -placed on elective OR schedule for today -risks, benefits, alternatives d/w pt and daughter at length, discussion w/ pt with use of hospital approved timing inspector service, she accepted all the risks and wished to proceed with surgery -was NPO after MN -preop labs reviewed -d/w pt possible need for transfusion intraop or post-op, she agreed and provided consent -please contact me with any questions, updates, concerns at [phone] thank you for allowing me to contribute to the care of your pt. Trell Rodríguez MD Orthopedic Surgery Status: Acute
[2019-02-10] MEDS: Docusate-Senna 50 mg-8.6 mg Tab PO SCH (21:31)
[2019-02-11] MEDS: Oxycodone/Acetaminophen 5/325 mg Tab PO PRN ×3 (02:29→16:02)
[2019-02-11 06:30] LABS: HEMOGLOBIN 7.4 g/dL (12.0-16.0); MEAN CELL VOLUME 92.4 fl (81.0-99.0); MEAN CORPUSCULAR HEMOGLOBIN 31.5 pg (27.0-31.0); MEAN CORPUSCULAR HGB CONC 34.1 g/dL (33.0-37.0); RBC 2.36 Mil/uL (3.80-5.20); RED CELL DISTRIBUTION WIDTH 15.7 % (11.5-14.5); WHITE BLOOD COUNT 9.1 K/uL (4.8-10.8)
[2019-02-11 06:52] LABS: BLOOD UREA NITROGEN 10 mg/dl (7-17); CALCIUM 7.8 mg/dL (8.4-10.2); GFR NON-AFRICAN AMERICAN > 60
[2019-02-11] MEDS ORDERED: Potassium Chloride 20 mEq ER Tab PO ONE (08:39)
[2019-02-11] MEDS: Enoxaparin 80 mg Syringe SC SCH ×2 (08:51→21:58)
--- NOTE | 2019-02-11 09:05 | RAD ---
Date of service: 02/10/2019 PROCEDURE: Right Femur Radiographs. HISTORY: post-op right hip surgery 02/09 COMPARISON: Portable OR film 02/09/2019 TECHNIQUE: AP and Lateral Radiographs of the right femur. FINDINGS: FEMUR: Five views of the right femur were performed for postoperative evaluation. Since the prior examination there has been ORIF of the patient's previously noted proximal right femur fracture with a cortical screw transfixing the femoral neck and a long medullary cesar transfixing the femur. Two small cortical screws are seen in the distal right femur. There is improved anatomic alignment from the prior examination. Surgical cristin are seen overlying the soft tissues. No new fracture is appreciated. SOFT TISSUES: See above. OTHER FINDINGS: None. IMPRESSION: Status post ORIF right femur fracture.
[2019-02-11] MEDS: ceFAZolin 2 GM in Sodium Chloride 0.9% 100 ML IVPB SCH ×2 (10:15→17:31)
--- NOTE | 2019-02-11 14:49 | CP.PCM.PN ---
Subjective - Date & Time of Evaluation Date of Evaluation: 02/11/19 Time of Evaluation: 13:00 - Subjective Subjective: S/P Fx R femur, s/p ORIF R hip mild pain R Hip, increased with movements, no SOB , no C/P, POx 98% on NC 2L/m Objective - Vital Signs/Intake and Output Vital Signs (last 24 hours): Temp Pulse Resp BP Pulse Ox 98.8 F 111 H 18 103/59 L 94 L 02/11/19 11:52 02/11/19 11:52 02/11/19 11:52 02/11/19 11:52 02/11/19 11:52 - Medications Medications: Current Medications Acetaminophen (Tylenol 325mg Tab) 650 mg PO Q4 PRN PRN Reason: Pain, Mild (1-3) Docusate Sodium (Colace) 100 mg PO BID [facility] Last Admin: 02/11/19 08:51 Dose: 100 mg Enoxaparin Sodium (Lovenox) 70 mg SC Q12 [facility]; Protocol Last Admin: 02/11/19 08:51 Dose: 70 mg Ferrous Sulfate (Feosol) 325 mg PO BID [facility] Last Admin: 02/11/19 08:51 Dose: 325 mg Folic Acid (Folic Acid) 1 mg PO DAILY [facility] Last Admin: 02/11/19 08:52 Dose: 1 mg Cefazolin Sodium 2 gm/ Sodium (Chloride) 100 mls @ 100 mls/hr IVPB Q8 [facility]; Protocol Stop: 02/14/19 01:59 Last Admin: 02/11/19 10:15 Dose: 100 mls/hr Morphine Sulfate (Morphine) 2 mg IVP Q4 PRN PRN Reason: Pain, severe (8-10) Last Admin: 02/10/19 05:52 Dose: 2 mg Ondansetron HCl (Zofran Inj) 4 mg IVP ONCE PRN PRN Reason: Nausea/Vomiting Oxycodone/Acetaminophen (Percocet 5/325 Mg Tab) 1 tab PO Q4 PRN PRN Reason: Pain, moderate (4-7) Stop: 02/12/19 15:17 Last Admin: 02/11/19 09:01 Dose: 1 tab Oxycodone/Acetaminophen (Percocet 5/325 Mg Tab) 2 tab PO Q4 PRN PRN Reason: Pain, severe (8-10) Stop: 02/12/19 15:17 Senna/Docusate Sodium (Senokot S 50 Mg-8.6 Mg) 2 tab PO HS [facility] Last Admin: 02/10/19 21:31 Dose: 2 tab - Labs Labs: 02/11/19 04:30 02/11/19 04:30 PT 11.7 Seconds (9.8-13.1) 02/07/19 23:50 INR 1.0 02/07/19 23:50 APTT 29.0 Seconds (25.6-37.1) 02/07/19 23:50 - Constitutional Appears: No Acute Distress - Head Exam Head Exam: NORMAL INSPECTION - Eye Exam Eye Exam: PERRL - ENT Exam ENT Exam: Normal Exam - Neck Exam Neck Exam: Normal Inspection - Respiratory Exam Respiratory Exam: NORMAL BREATHING PATTERN - Cardiovascular Exam Cardiovascular Exam: Tachycardia - GI/Abdominal Exam GI & Abdominal Exam: Soft, Normal Bowel Sounds - Extremities Exam Additional comments: R Hip surgical incision healing well, neuromuscular status distal good, MARYCARMEN wrapp RLE, tenderness R Hip, R thigh - Back Exam Back Exam: NORMAL INSPECTION - Neurological Exam Neurological Exam: Alert, Oriented x3. absent: CN II-XII Intact, Motor Sensory Deficit - Psychiatric Exam Psychiatric exam: Normal Mood - Skin Skin Exam: Warm Assessment and Plan (1) Fracture, intertrochanteric, right femur Status: Acute (2) Pain in right hip Status: Acute (3) Status post fall Status: Acute (4) Anemia Status: Acute (5) Pulmonary embolism Status: Acute - Assessment and Plan (Free Text) Plan: Hgb 7.4 transfuse 2 U PRBC, Thrombocitopenia, Pt on Lovenox, f/u CBC post transfusion, f/u Venous Dopler RLE, continue Percocet, Morphine, Iron
--- NOTE | 2019-02-11 17:09 | US ---
Date of service: 02/11/2019 PROCEDURE: Bilateral lower extremity venous duplex Doppler. HISTORY: Confirmed PE COMPARISON: None available. TECHNIQUE: Bilateral common femoral, superficial femoral, popliteal and posterior tibial veins were evaluated. Flow was assessed with color Doppler, compressibility, assessment of phasic flow and augmentation response. FINDINGS: COMMON FEMORAL VEIN: Right CFV: Unremarkable. Left CFV: Unremarkable. SUPERFICIAL FEMORAL VEIN: Right SFV: Unremarkable. Left SFV: Unremarkable. POPLITEAL VEIN: Right Popliteal: Unremarkable. Left Popliteal: Unremarkable. POSTERIOR TIBIAL VEIN: Right PTV: Unremarkable. Left PTV: Unremarkable. OTHER FINDINGS: Right greater saphenous vein was limited due to bandage in swelling. Right and left distal greater saphenous veins appear grossly patent. IMPRESSION: No evidence of deep venous thrombosis.
--- NOTE | 2019-02-11 18:43 | CARD ---
APPROVED REPORT Date of service: 02/10/2019 EKG Measurement Heart [id number] <Conclusion> Sinus tachycardia Low voltage QRS Inferior infarct, age undetermined Prolonged QT Abnormal ECG
[2019-02-11] MEDS: Docusate-Senna 50 mg-8.6 mg Tab PO SCH (21:58)
[2019-02-12] MEDS: ceFAZolin 2 GM in Sodium Chloride 0.9% 100 ML IVPB SCH ×2 (00:49→09:07)
[2019-02-12] MEDS: Oxycodone/Acetaminophen 5/325 mg Tab PO PRN ×2 (01:07→09:13)
[2019-02-12 06:27] LABS: MEAN CORPUSCULAR HEMOGLOBIN 31.5 pg (27.0-31.0); MEAN CORPUSCULAR HGB CONC 34.9 g/dL (33.0-37.0); RBC 3.05 Mil/uL (3.80-5.20); RED CELL DISTRIBUTION WIDTH 15.2 % (11.5-14.5); WHITE BLOOD COUNT 8.4 K/uL (4.8-10.8)
[2019-02-12 06:33] LABS: HEMOGLOBIN 9.6 g/dL (12.0-16.0)
[2019-02-12 06:34] LABS: MEAN CELL VOLUME 90.4 fl (81.0-99.0)
[2019-02-12 06:50] LABS: ALBUMIN 2.6 g/dL (3.5-5.0); ALT/SGPT 28 U/L (9-52); AST/SGOT 40 U/L (14-36); BLOOD UREA NITROGEN 10 mg/dl (7-17); CALCIUM 7.9 mg/dL (8.4-10.2); GFR NON-AFRICAN AMERICAN > 60
[2019-02-12] MEDS: Enoxaparin 80 mg Syringe SC SCH ×2 (09:08→21:43)
--- NOTE | 2019-02-12 09:47 | RAD ---
Date of service: 02/09/2019 PROCEDURE: Fluoroscopy HISTORY: Open reduction internal fixation proximal femoral fracture. COMPARISON: Preoperative study performed February 08, 2019. TECHNIQUE: Total fluoroscopic time (continuous mode) utilized during the procedure 1432.9 seconds. FINDINGS: Total exam DLP: 203.07 (mGy). IMPRESSION: Submitted images from the current procedure: 29.
[2019-02-12] MEDS: Sodium Chloride 0.9% 1,000 ML IV SCH ×2 (10:10→21:00)
--- NOTE | 2019-02-12 10:42 | CARD ---
APPROVED REPORT Date of service: 02/12/2019 EKG Measurement Heart [id number] <Conclusion> Normal sinus rhythm Inferior infarct, age undetermined Abnormal ECG
[2019-02-12 11:27] LABS: IRON 19 ug/dL (37-170)
[2019-02-12 11:36] LABS: % IRON SATURATION 11 % (20-55); TOTAL IRON BINDING CAPACITY 175 ug/dL (250-450)
--- NOTE | 2019-02-12 13:19 | PCM.RRT ---
<Jose Juan Montiel - Last Filed: 02/12/19 13:35> REVIEW SPECIALIST Nurse Assessment - Situation REVIEW SPECIALIST Responder Arrival Time: 09:30 Location: [address] Room Number: 404-2 REVIEW SPECIALIST Reason for Call: Hypotension REVIEW SPECIALIST Called By: RN - IV IV Inserted during REVIEW SPECIALIST?: No IV Fluids Initiated During REVIEW SPECIALIST?: NSS at 100cc/hr - Respiratory Oxygen Delivery Method: Nasal Cannula Received Nebulizer Treatments: No Was the Patient Ventilated with Bag/Mask 100% O2?: No Secretions Suctioned?: No Was the Patient Intubated?: No Was the Patient Placed on a Ventilator?: No - Diagnostic Test Ordered EKG: Yes CPR started during REVIEW SPECIALIST?: No - Vital Signs Vital Signs: Rapid Response Vital Sign Blood Pressure 80/42 Pulse Rate 106 Respiratory Rate 18 Oxygen Saturation 97 - Sepsis Screen Part 1 Sepsis Screen Part 1: Hypotensive - Time REVIEW SPECIALIST Ended Time REVIEW SPECIALIST Ended: 10:00 - Vital Signs at end of REVIEW SPECIALIST Vital Signs at end of REVIEW SPECIALIST: Rapid Response End Vital Sign Blood Pressure 138/82 Pulse Rate 100 Respiratory Rate 18 Temperature 97.7 F O2 Sat by Pulse Oximetry 97 - Recommendations REVIEW SPECIALIST Level of Care Recommendations: Remain in current setting I.Reason for REVIEW SPECIALIST - A) Acute Change in Patient: Subjective: Pt is a 83 yo female with hx of resent PE s/p surgery, presented to ER on 02/07/19 due to Right hip/Right leg pain, diagnosed with fracture and was admitted for treatment and surgical fixation. Today at 9:28 REVIEW SPECIALIST was called due to patient having syncopal episode with BP of 80/42 with hr of 102 glucose of 128. REVIEW SPECIALIST team arrived at 9:30; Patient was lying on bed with CC of dizziness and nausea. Patient vitals were retaken after symptoms improved, BP 130/84 with HR 82 ox 100% room air . Patient symptoms resolved. Patient denies chest pain sob, abdominal pain, diarrhea or constipation EKG No st t changes, no acute changes noted Assessment and plan Patient is a 83 yo female with resent hx of PE s/p surgery, REVIEW SPECIALIST was called Patient symptoms are most likely due to Vaso-vagal syncope. Patient received IV fluid 100ml/h Monitor for any exacerbation. - Neurological Status (Select all that apply): Alert, Oriented, Verbal - Constitutional Appears: Well, Non-toxic, Toxic - Head Head Exam: ATRAUMATIC, NORMAL INSPECTION, NORMOCEPHALIC - Eyes Eye Exam: EOMI, Normal appearance, PERRL - Respiratory Exam Respiratory Exam: Clear to Ausculation Bilateral, NORMAL BREATHING PATTERN - Cardiovascular Exam Cardiovascular Exam: REGULAR RHYTHM, +S1, +S2 - GI/Abdominal Exam GI & Abdominal Exam: Soft, Normal Bowel Sounds - Neurological Exam Neurological Exam: Alert, Awake, CN II-XII Intact, Normal Gait, Oriented x3 - Extremities Exam Extremities Exam: Full ROM, Normal Capillary Refill, Normal Inspection <Myron Jean D - Last Filed: 02/12/19 18:04> REVIEW SPECIALIST Nurse Assessment - Vital Signs Vital Signs: Rapid Response Vital Sign Blood Pressure 80/42 Pulse Rate 106 Respiratory Rate 18 Oxygen Saturation 97 - Vital Signs at end of REVIEW SPECIALIST Vital Signs at end of REVIEW SPECIALIST: Rapid Response End Vital Sign Blood Pressure 138/82 Pulse Rate 100 Respiratory Rate 18 Temperature 97.7 F O2 Sat by Pulse Oximetry 97 Attending/Attestation - Attestation I have personally seen and examined this patient.: Yes I have fully participated in the care of the patient.: Yes I have reviewed all pertinent clinical information, including history, physical exam and plan: Yes Notes (Text): 02/12/19 18:01 Patient seen and examined with resident during REVIEW SPECIALIST called because of low BP with dizziness. Case discussed and agreed with assessment and plan. Patient spontaneously recovered and feeling much better. Condition probably secondary to vasovagal and postural hypotension
--- NOTE | 2019-02-12 14:02 | CP.PCM.PN ---
Subjective - Date & Time of Evaluation Date of Evaluation: 02/12/19 Time of Evaluation: 11:00 - Subjective Subjective: F/U Fx R Femur, s/p ORIF R hip Early today, CLINICAL COURIER was called after Pt was found with hypotension with a prompt recovery, Pt was fully aware of what happened, no AD now, no SOB,no SOB, no palpitations. Pt complains of R hip- R thigh pain Objective - Vital Signs/Intake and Output Vital Signs (last 24 hours): Temp Pulse Resp BP Pulse Ox 97.2 F L 103 H 95 H 116/72 20 L 02/12/19 12:43 02/12/19 12:43 02/12/19 12:43 02/12/19 12:43 02/12/19 12:43 Intake and Output: 02/12/19 02/12/19 06:59 18:59 Intake Total 650 Balance 650 - Medications Medications: Current Medications Acetaminophen (Tylenol 325mg Tab) 975 mg PO Q4 PRN PRN Reason: Pain, Mild (1-3) Acetaminophen (Tylenol 325mg Tab) 650 mg PO Q6 PRN PRN Reason: Pain, moderate (4-7) Docusate Sodium (Colace) 100 mg PO BID [facility] Last Admin: 02/12/19 09:08 Dose: 100 mg Enoxaparin Sodium (Lovenox) 70 mg SC Q12 [facility]; Protocol Last Admin: 02/12/19 09:08 Dose: 70 mg Ferrous Sulfate (Feosol) 325 mg PO BID [facility] Last Admin: 02/12/19 09:08 Dose: 325 mg Folic Acid (Folic Acid) 1 mg PO DAILY [facility] Last Admin: 02/12/19 09:08 Dose: 1 mg Sodium Chloride (Sodium Chloride 0.9%) 1,000 mls @ 100 mls/hr IV .Q10H [facility] Stop: 02/13/19 09:53 Morphine Sulfate (Morphine) 2 mg IVP Q4 PRN PRN Reason: Pain, severe (8-10) Last Admin: 02/10/19 05:52 Dose: 2 mg Ondansetron HCl (Zofran Inj) 4 mg IVP ONCE PRN PRN Reason: Nausea/Vomiting Senna/Docusate Sodium (Senokot S 50 Mg-8.6 Mg) 2 tab PO [facility] Last Admin: 02/11/19 21:58 Dose: 2 tab Tramadol HCl (Ultram) 50 mg PO Q6 PRN PRN Reason: Pain, moderate (4-7) - Labs Labs: 02/12/19 04:50 02/12/19 04:50 PT 11.7 Seconds (9.8-13.1) 02/07/19 23:50 INR 1.0 02/07/19 23:50 APTT 29.0 Seconds (25.6-37.1) 02/07/19 23:50 - Constitutional Appears: No Acute Distress - Head Exam Head Exam: NORMAL INSPECTION - Eye Exam Eye Exam: PERRL - ENT Exam ENT Exam: Normal Exam - Neck Exam Neck Exam: Normal Inspection - Respiratory Exam Respiratory Exam: NORMAL BREATHING PATTERN - Cardiovascular Exam Cardiovascular Exam: Tachycardia - GI/Abdominal Exam GI & Abdominal Exam: Soft, Normal Bowel Sounds - Extremities Exam Additional comments: R hip surgical incision healing well, neuromuscular status distal good, Rafat wrap RLE, tenderness R hip, R thigh - Back Exam Back Exam: NORMAL INSPECTION - Neurological Exam Neurological Exam: Alert, CN II-XII Intact, Oriented x3. absent: Motor Sensory Deficit - Psychiatric Exam Psychiatric exam: Normal Affect - Skin Skin Exam: Warm Assessment and Plan (1) Fracture, intertrochanteric, right femur Status: Acute (2) Pain in right hip Status: Acute (3) Status post fall Status: Acute (4) Pulmonary embolism Status: Acute (5) Anemia Status: Acute - Assessment and Plan (Free Text) Plan: Hgb 9.6 post transfusion PRBC, Platelet 160, Continue Lovenox, Iron, Percocet DC AE, Tramadol, Tylenol and rest of Tx, bed rest, resume PT in AM, pain control
--- NOTE | 2019-02-12 15:06 | CP.PCM.PN ---
Subjective - Date & Time of Evaluation Date of Evaluation: 02/12/19 Time of Evaluation: 15:04 - Subjective Subjective: Patient with daughter at bedside. Pain is controlled. Had rapid response for hypotension today. Plan is for TCU prior to returning home to [place]. Objective - Vital Signs/Intake and Output Vital Signs (last 24 hours): Temp Pulse Resp BP Pulse Ox 97.2 F L 103 H 95 H 116/72 20 L 02/12/19 12:43 02/12/19 12:43 02/12/19 12:43 02/12/19 12:43 02/12/19 12:43 Intake and Output: 02/12/19 02/12/19 06:59 18:59 Intake Total 650 Balance 650 - Medications Medications: Current Medications Acetaminophen (Tylenol 325mg Tab) 975 mg PO Q4 PRN PRN Reason: Pain, Mild (1-3) Acetaminophen (Tylenol 325mg Tab) 650 mg PO Q6 PRN PRN Reason: Pain, moderate (4-7) Docusate Sodium (Colace) 100 mg PO BID [facility] Last Admin: 02/12/19 09:08 Dose: 100 mg Enoxaparin Sodium (Lovenox) 70 mg SC Q12 [facility]; Protocol Last Admin: 02/12/19 09:08 Dose: 70 mg Ferrous Sulfate (Feosol) 325 mg PO BID [facility] Last Admin: 02/12/19 09:08 Dose: 325 mg Folic Acid (Folic Acid) 1 mg PO DAILY [facility] Last Admin: 02/12/19 09:08 Dose: 1 mg Sodium Chloride (Sodium Chloride 0.9%) 1,000 mls @ 100 mls/hr IV .Q10H [facility] Stop: 02/13/19 09:53 Morphine Sulfate (Morphine) 2 mg IVP Q4 PRN PRN Reason: Pain, severe (8-10) Last Admin: 02/10/19 05:52 Dose: 2 mg Ondansetron HCl (Zofran Inj) 4 mg IVP ONCE PRN PRN Reason: Nausea/Vomiting Senna/Docusate Sodium (Senokot S 50 Mg-8.6 Mg) 2 tab PO HS [facility] Last Admin: 02/11/19 21:58 Dose: 2 tab Tramadol HCl (Ultram) 50 mg PO Q6 PRN PRN Reason: Pain, moderate (4-7) - Labs Labs: 02/12/19 04:50 02/12/19 04:50 PT 11.7 Seconds (9.8-13.1) 02/07/19 23:50 INR 1.0 02/07/19 23:50 APTT 29.0 Seconds (25.6-37.1) 02/07/19 23:50 - Extremities Exam Additional comments: Right hip: dressing saturated, changed. Mild erythema at incision, 2cm tension blister distally. Thigh swollen. soft. +ROM ankle/toes, sensation intact c loomis soft NT neg homans Assessment and Plan (1) Fracture, intertrochanteric, right femur Assessment & Plan: POD#3 s/p long IM nailing PT/OT when hemodynamically stable for TCU BLL PE on therapeutic lovenox d/w Dr. Rodríguez, agrees with above Status: Acute
[2019-02-12] MEDS: Docusate-Senna 50 mg-8.6 mg Tab PO SCH (21:40)
[2019-02-13] MEDS: Sodium Chloride 0.9% 1,000 ML IV SCH (05:13)
[2019-02-13] MEDS: Enoxaparin 80 mg Syringe SC SCH (08:49)
--- NOTE | 2019-02-13 09:54 | CP.PCM.PN ---
Subjective - Date & Time of Evaluation Date of Evaluation: 02/13/19 Time of Evaluation: 09:51 - Subjective Subjective: Patient with daughter at bedside. Offers no new complaints today. C/o hip pain. Objective - Vital Signs/Intake and Output Vital Signs (last 24 hours): Temp Pulse Resp BP Pulse Ox 97.4 F L 103 H 20 108/59 L 99 02/13/19 09:00 02/13/19 09:00 02/13/19 09:00 02/13/19 09:00 02/13/19 09:00 - Medications Medications: Current Medications Acetaminophen (Tylenol 325mg Tab) 975 mg PO Q4 PRN PRN Reason: Pain, Mild (1-3) Acetaminophen (Tylenol 325mg Tab) 650 mg PO Q6 PRN PRN Reason: Pain, moderate (4-7) Last Admin: 02/13/19 08:52 Dose: 650 mg Docusate Sodium (Colace) 100 mg PO BID [facility] Last Admin: 02/13/19 08:49 Dose: 100 mg Enoxaparin Sodium (Lovenox) 70 mg SC Q12 [facility]; Protocol Last Admin: 02/13/19 08:49 Dose: 70 mg Ferrous Sulfate (Feosol) 325 mg PO BID [facility] Last Admin: 02/13/19 08:50 Dose: 325 mg Folic Acid (Folic Acid) 1 mg PO DAILY [facility] Last Admin: 02/13/19 08:50 Dose: 1 mg Sodium Chloride (Sodium Chloride 0.9%) 1,000 mls @ 100 mls/hr IV .Q10H [facility] Stop: 02/13/19 09:53 Last Admin: 02/13/19 05:13 Dose: 100 mls/hr Morphine Sulfate (Morphine) 2 mg IVP Q4 PRN PRN Reason: Pain, severe (8-10) Last Admin: 02/10/19 05:52 Dose: 2 mg Ondansetron HCl (Zofran Inj) 4 mg IVP ONCE PRN PRN Reason: Nausea/Vomiting Senna/Docusate Sodium (Senokot S 50 Mg-8.6 Mg) 2 tab PO HS [facility] Last Admin: 02/12/19 21:40 Dose: 2 tab Tramadol HCl (Ultram) 50 mg PO Q6 PRN PRN Reason: Pain, moderate (4-7) Last Admin: 02/13/19 08:51 Dose: 50 mg - Labs Labs: 02/12/19 04:50 02/12/19 04:50 PT 11.7 Seconds (9.8-13.1) 02/07/19 23:50 INR 1.0 02/07/19 23:50 APTT 29.0 Seconds (25.6-37.1) 02/07/19 23:50 - Extremities Exam Additional comments: right hip moderate serous drainage. no erythema. no change in thigh swelling. +ROM ankle, toes, sesnation intact calves soft NT neg homans +DP/PT pulses Assessment and Plan (1) Fracture, intertrochanteric, right femur Assessment & Plan: POD#4 s/p right hip long IM nail PT/OT lovenox dressing changes ice ortho stable TCU planning d/w DR. Marroquin, agrees with above Status: Acute (2) Acute blood loss anemia Assessment & Plan: s/p transfusion Status: Acute
--- NOTE | 2019-02-13 11:04 | CP.PCM.PN ---
Subjective - Date & Time of Evaluation Date of Evaluation: 02/13/19 Time of Evaluation: 10:00 - Subjective Subjective: Asked to evaluate pt because of pauses on telemetry Telemetry: Blocked APC's no treatment necessary Objective - Vital Signs/Intake and Output Vital Signs (last 24 hours): Temp Pulse Resp BP Pulse Ox 97.4 F L 101 H 20 108/59 L 99 02/13/19 09:00 02/13/19 09:00 02/13/19 09:00 02/13/19 09:00 02/13/19 09:00 - Medications Medications: Current Medications Acetaminophen (Tylenol 325mg Tab) 975 mg PO Q4 PRN PRN Reason: Pain, Mild (1-3) Acetaminophen (Tylenol 325mg Tab) 650 mg PO Q6 PRN PRN Reason: Pain, moderate (4-7) Last Admin: 02/13/19 08:52 Dose: 650 mg Docusate Sodium (Colace) 100 mg PO BID [facility] Last Admin: 02/13/19 08:49 Dose: 100 mg Enoxaparin Sodium (Lovenox) 70 mg SC Q12 [facility]; Protocol Last Admin: 02/13/19 08:49 Dose: 70 mg Ferrous Sulfate (Feosol) 325 mg PO BID [facility] Last Admin: 02/13/19 08:50 Dose: 325 mg Folic Acid (Folic Acid) 1 mg PO DAILY [facility] Last Admin: 02/13/19 08:50 Dose: 1 mg Morphine Sulfate (Morphine) 2 mg IVP Q4 PRN PRN Reason: Pain, severe (8-10) Last Admin: 02/10/19 05:52 Dose: 2 mg Ondansetron HCl (Zofran Inj) 4 mg IVP ONCE PRN PRN Reason: Nausea/Vomiting Senna/Docusate Sodium (Senokot S 50 Mg-8.6 Mg) 2 tab PO HS [facility] Last Admin: 02/12/19 21:40 Dose: 2 tab Tramadol HCl (Ultram) 50 mg PO Q6 PRN PRN Reason: Pain, moderate (4-7) Last Admin: 02/13/19 08:51 Dose: 50 mg - Labs Labs: 02/12/19 04:50 02/12/19 04:50 PT 11.7 Seconds (9.8-13.1) 02/07/19 23:50 INR 1.0 02/07/19 23:50 APTT 29.0 Seconds (25.6-37.1) 02/07/19 23:50 Assessment and Plan (1) Fracture, intertrochanteric, right femur Status: Acute
[2019-02-13 11:26] LABS: HEMOGLOBIN 8.8 g/dL (12.0-16.0); MEAN CELL VOLUME 91.4 fl (81.0-99.0); MEAN CORPUSCULAR HEMOGLOBIN 31.3 pg (27.0-31.0); MEAN CORPUSCULAR HGB CONC 34.2 g/dL (33.0-37.0); RBC 2.8 Mil/uL (3.80-5.20); RED CELL DISTRIBUTION WIDTH 15.5 % (11.5-14.5); WHITE BLOOD COUNT 7.3 K/uL (4.8-10.8)
[2019-02-13] MEDS ORDERED: Cholecalciferol 1,000 INTLU TAB PO SCH (13:30)
[2019-02-13] MEDS ORDERED: Calcium-Vit D 500 mg-200 Units Tab UD PO SCH (13:30)
--- NOTE | 2019-02-13 14:21 | CP.PCM.PN ---
Subjective - Date & Time of Evaluation Date of Evaluation: 02/13/19 Time of Evaluation: 10:35 - Subjective Subjective: F/U Fx R Femur, s/p ORIF R hip. No pain at rest, only pain with movements, relieved with Tramadol and Tylenol. Had PT today, able to stands Objective - Vital Signs/Intake and Output Vital Signs (last 24 hours): Temp Pulse Resp BP Pulse Ox 97.9 F 81 20 103/62 98 02/13/19 13:09 02/13/19 13:09 02/13/19 13:09 02/13/19 13:09 02/13/19 13:09 - Medications Medications: Current Medications Acetaminophen (Tylenol 325mg Tab) 975 mg PO Q4 PRN PRN Reason: Pain, Mild (1-3) Acetaminophen (Tylenol 325mg Tab) 650 mg PO Q6 PRN PRN Reason: Pain, moderate (4-7) Last Admin: 02/13/19 08:52 Dose: 650 mg Calcium/Vitamin D (Oyster Shell Calcium/Vitamin D 500 Mg-200 Iu) 1 tab PO DAILY [facility] Cholecalciferol (Vitamin D) 4,000 intlu PO DAILY [facility] Docusate Sodium (Colace) 100 mg PO BID [facility] Last Admin: 02/13/19 08:49 Dose: 100 mg Enoxaparin Sodium (Lovenox) 70 mg SC Q12 [facility]; Protocol Ferrous Sulfate (Feosol) 325 mg PO BID [facility] Last Admin: 02/13/19 08:50 Dose: 325 mg Folic Acid (Folic Acid) 1 mg PO DAILY [facility] Last Admin: 02/13/19 08:50 Dose: 1 mg Iron Sucrose 100 mg/ Sodium (Chloride) 105 mls @ 105 mls/hr IVPB DAILY [facility] Morphine Sulfate (Morphine) 2 mg IVP Q4 PRN PRN Reason: Pain, severe (8-10) Last Admin: 02/10/19 05:52 Dose: 2 mg Ondansetron HCl (Zofran Inj) 4 mg IVP ONCE PRN PRN Reason: Nausea/Vomiting Senna/Docusate Sodium (Senokot S 50 Mg-8.6 Mg) [address] [facility] Last Admin: 02/12/19 21:40 Dose: 2 tab Tramadol HCl (Ultram) 50 mg PO Q6 PRN PRN Reason: Pain, moderate (4-7) Last Admin: 02/13/19 08:51 Dose: 50 mg - Labs Labs: 02/13/19 10:50 02/12/19 04:50 PT 11.7 Seconds (9.8-13.1) 02/07/19 23:50 INR 1.0 02/07/19 23:50 APTT 29.0 Seconds (25.6-37.1) 02/07/19 23:50 - Constitutional Appears: No Acute Distress - Head Exam Head Exam: NORMAL INSPECTION - Eye Exam Eye Exam: PERRL - ENT Exam ENT Exam: Normal Exam - Neck Exam Neck Exam: Normal Inspection ( ) - Respiratory Exam Respiratory Exam: NORMAL BREATHING PATTERN - Cardiovascular Exam Cardiovascular Exam: REGULAR RHYTHM - GI/Abdominal Exam GI & Abdominal Exam: Soft, Normal Bowel Sounds - Extremities Exam Extremities Exam: Tenderness (R hip/R thigh.) Additional comments: R surgical incision healing well, neuromuscular status distal good, roxana wrap RLE. - Back Exam Back Exam: NORMAL INSPECTION - Neurological Exam Neurological Exam: Alert, CN II-XII Intact, Oriented x3. absent: Motor Sensory Deficit - Psychiatric Exam Psychiatric exam: Normal Mood - Skin Skin Exam: Warm Assessment and Plan (1) Fracture, intertrochanteric, right femur Status: Acute (2) Pain in right hip Status: Acute (3) Status post fall Status: Acute (4) Pulmonary embolism Status: Acute (5) Anemia Status: Acute - Assessment and Plan (Free Text) Plan: Continue current medications, transfer to TCU today.
[2019-02-13 16:18] VITALS: BP 102/62; PULSE 121; RESP 18; TEMP 97.8; O2SAT 93
--- NOTE | 2019-02-13 19:25 | CP.PCM.DIS ---
Provider - Provider Date of Admission: 02/08/19 00:21 Attending physician: Kwaku Florian MD Consults: 02/08/19 00:26 Orthopedic Consult Stat Comment: Consulting Provider: Trell Marks Consulting Physician: Trell Marks Reason for Consult: right femur fracture 02/08/19 04:08 Nursing Referral for Wound Care Routine Comment: Physician Instructions: Reason For Exam: Low Nathan score 02/08/19 06:58 Cardiology Consult Routine Comment: Consulting Provider: Gary Hernandez Consulting Physician: Gary Hernandez Reason for Consult: Cardiac clearance 02/09/19 15:16 Case Management Referral Routine Comment: Physician Instructions: Reason For Exam: Reason for Referral: Discharge Planning Diagnosis - Discharge Diagnosis (1) Fracture, intertrochanteric, right femur Status: Acute Priority: High (2) Pain in right hip Status: Acute Priority: High (3) Status post fall Status: Acute Priority: High (4) Pulmonary embolism Status: Acute (5) Anemia Status: Acute Hospital Course - Lab Results Lab Results: Micro Results 02/09/19 00:45 Urine,Clean Catch Urine Culture - Final 50-100,000 CFU/ML. MULTIPLE SPECIES. SUGGEST REPEAT SPECIMEN. Most Recent Lab Values WBC 7.3 K/uL (4.8-10.8) 02/13/19 10:50 RBC 2.80 Mil/uL (3.80-5.20) L 02/13/19 10:50 Hgb 8.8 g/dL (12.0-16.0) L 02/13/19 10:50 Hct 25.6 % (34.0-47.0) L 02/13/19 10:50 MCV 91.4 fl (81.0-99.0) 02/13/19 10:50 MCH 31.3 pg (27.0-31.0) H 02/13/19 10:50 MCHC 34.2 g/dL (33.0-37.0) 02/13/19 10:50 RDW 15.5 % (11.5-14.5) H 02/13/19 10:50 Plt Count 223 K/uL (130-400) 02/13/19 10:50 MPV 7.8 fl (7.2-11.7) 02/07/19 23:50 Neut % (Auto) 84.0 % (50.0-75.0) H 02/07/19 23:50 Lymph % (Auto) 11.1 % (20.0-40.0) L 02/07/19 23:50 [place] % (Auto) 4.0 % (0.0-10.0) 02/07/19 23:50 Eos % (Auto) 0.3 % (0.0-4.0) 02/07/19 23:50 Baso % (Auto) 0.6 % (0.0-2.0) 02/07/19 23:50 Neut # (Auto) 10.2 K/uL (1.8-7.0) H 02/07/19 23:50 Lymph # (Auto) 1.4 K/uL (1.0-4.3) 02/07/19 23:50 [place] # (Auto) 0.5 K/uL (0.0-0.8) 02/07/19 23:50 Eos # (Auto) 0.0 K/uL (0.0-0.7) 02/07/19 23:50 Baso # (Auto) 0.1 K/uL (0.0-0.2) 02/07/19 23:50 Retic Count 3.1 % (0.5-1.5) H 02/12/19 04:50 PT 11.7 Seconds (9.8-13.1) 02/07/19 23:50 INR 1.0 02/07/19 23:50 APTT 29.0 Seconds (25.6-37.1) 02/07/19 23:50 pCO2 41 mm/Hg (35-45) 02/10/19 13:08 pO2 51 mm/Hg (80-100) L 02/10/19 13:08 HCO3 29.2 mmol/L (21-28) H 02/10/19 13:08 ABG pH 7.47 (7.35-7.45) H 02/10/19 13:08 ABG Total CO2 31.1 mmol/L (22-28) H 02/10/19 13:08 ABG O2 Saturation 93.6 % (95-98) L 02/10/19 13:08 ABG Base Excess 5.6 mmol/L (-2.0-3.0) H 02/10/19 13:08 Ameya Test Yes 02/10/19 13:08 ABG Potassium 3.5 mmol/L (3.6-5.2) L 02/10/19 13:08 A-a O2 Difference 47.0 mm/Hg 02/10/19 13:08 Sodium 131.0 mmol/L (132-148) L 02/10/19 13:08 Chloride 102.0 mmol/L (98-107) 02/10/19 13:08 Glucose 138 mg/dL (65-105) H 02/10/19 13:08 Lactate 1.0 mmol/L (0.7-2.1) 02/10/19 13:08 FiO2 21.0 % 02/10/19 13:08 Sodium 137 mmol/l (132-148) 02/12/19 04:50 Potassium 4.1 MMOL/L (3.6-5.0) 02/12/19 04:50 Chloride 95 mmol/L (98-107) L 02/12/19 04:50 Carbon Dioxide 34 mmol/L (22-30) H 02/12/19 04:50 Anion Gap 12 (10-20) 02/12/19 04:50 BUN 10 mg/dl (7-17) 02/12/19 04:50 Creatinine 0.6 mg/dl (0.7-1.2) L 02/12/19 04:50 Est GFR ( Amer) > 60 02/12/19 04:50 Est GFR (Non-Af Amer) > 60 02/12/19 04:50 POC Glucose (mg/dL) 128 mg/dL (65-110) H 02/12/19 09:47 Random Glucose 108 mg/dL (65-105) H 02/12/19 04:50 Calcium 7.9 mg/dL (8.4-10.2) L 02/12/19 04:50 Iron 19 ug/dL (37-170) L 02/12/19 08:00 TIBC 175 ug/dL (250-450) L 02/12/19 08:00 % Saturation 11 % (20-55) L 02/12/19 08:00 Ferritin 153.0 ng/Ml (11.1-264.0) 02/12/19 04:50 Total Bilirubin 0.9 mg/dl (0.2-1.3) 02/12/19 04:50 AST 40 U/L (14-36) H D 02/12/19 04:50 ALT 28 U/L (9-52) 02/12/19 04:50 Alkaline Phosphatase 48 U/L (38-126) 02/12/19 04:50 Total Protein 5.0 G/DL (6.3-8.2) L 02/12/19 04:50 Albumin 2.6 g/dL (3.5-5.0) L D 02/12/19 04:50 Globulin 2.4 gm/dL (2.2-3.9) 02/12/19 04:50 Albumin/Globulin Ratio 1.0 (1.0-2.1) 02/12/19 04:50 Vitamin B12 936 pg/mL (239-931) H 02/12/19 04:50 25-OH Vitamin D Total < 12.8 NG/ML (30.0-100.0) L 02/13/19 04:20 Arterial Blood Potassium 3.5 mmol/L (3.6-5.2) L 02/10/19 13:08 Urine Color Yellow (YELLOW) 02/09/19 02:45 Urine Clarity Cloudy (Clear) 02/09/19 02:45 Urine pH 6.0 (5.0-8.0) 02/09/19 02:45 Ur Specific [place] 1.013 (1.003-1.030) 02/09/19 02:45 Urine Protein Negative mg/dL (NEGATIVE) 02/09/19 02:45 Urine Glucose (UA) Neg mg/dL (NEGATIVE) 02/09/19 02:45 Urine Ketones Negative mg/dL (NEGATIVE) 02/09/19 02:45 Urine Blood Small (NEGATIVE) 02/09/19 02:45 Urine Nitrate Negative (NEGATIVE) 02/09/19 02:45 Urine Bilirubin Negative (NEGATIVE) 02/09/19 02:45 Urine Urobilinogen 0.2-1.0 mg/dL (0.2-1.0) 02/09/19 02:45 Ur Leukocyte Esterase Mod [place]/uL (Negative) 02/09/19 02:45 Urine RBC (Auto) 5 /hpf (0-3) H 02/09/19 02:45 Urine Microscopic WBC 15 /hpf (0-5) H 02/09/19 02:45 Ur Squamous Epith Cells 7 /hpf (0-5) H 02/09/19 02:45 Urine Bacteria Rare (<OCC) 02/09/19 02:45 Blood Type O POSITIVE 02/09/19 02:45 Blood Type Confirm O POSITIVE 02/09/19 06:30 Antibody Screen Negative 02/09/19 02:45 Crossmatch See Detail 02/09/19 02:45 BBK History Checked No verified bt 02/09/19 02:45 Discharge Exam - Head Exam Head Exam: NORMAL INSPECTION Discharge Plan - Discharge Medications Prescriptions: Iron Sucrose Complex [Venofer] 100 mg IV DAILY #7 ml - Follow Up Plan Condition: FAIR Disposition: TRANSF TO SNF Instructions: Preventing Falls in the Older Adult, Femur Fracture (DC) Additional Instructions: diane [place] con Dr. Brett beckwith 1 semana Referrals: Trell Marks MD [Staff Provider] - Kwaku Florian MD [Staff Provider] -
[2019-02-13] MEDS ORDERED: Enoxaparin 80 mg Syringe SC SCH (21:00)
--- NOTE | 2019-02-15 12:56 | PQF ---
PROVIDER RESPONSE TEXT: Pulmonary embolism occurred in the post operative period, cause clinically unable to be determined. REVIEWER QUERY TEXT: Postoperative Relationship Clarification Please clarify if the Pulmonary Embolism is a "complication" i.e. -- Pulmonary Embolism is a complication of surgery -- Pulmonary Embolism occurred in the post operative period, cause clinically unable to be determine d -- Pulmonary Embolism is incidental to surgery -- Other, please specify 02/10 Angio Chest PE: Bilateral lower lobe pulmonary emboli.No large central pulmonary embolism seen. Patient's nurse taking care of this patient was immediately notified of the findings at the time of this dictation. 02/09 Surgery: Right hip: Open reduction and internal fixation with long hip nail (long TFN) 02/10 Attending progress note: dxs. include: Pulmonary Embolism: Lovenox for Tx PE Documentation indicators that raised basis for question: --- Query created by: Letty Benitez on 02/13/2019 8:28 AM Electronically signed by: Kwaku Flroian MD 02/15/2019 12:53 PM
--- NOTE | 2019-02-21 07:08 | OP ---
PROCEDURE DATE: 02/09/2019 PREOPERATIVE DIAGNOSIS: Right hip comminuted pertrochanteric fracture, displaced. POSTOPERATIVE DIAGNOSIS: Right hip comminuted pertrochanteric fracture, displaced. PROCEDURES: Right hip: 1. Open reduction, pertrochanteric fracture. 2. Internal fixation with long intramedullary hip nail. SURGEON: Trell Rodríguez MD AUTO SERVICER: Alfredo Moya PA-C JUSTIFICATION FOR AUTO SERVICER: Alfredo Moya is a certified physician assistant analyst whose skilled surgical services were an absolute necessity for successful completion of the procedure as she provided skilled surgical assistance with positioning of the patient, positioning of extremity, management of surgical tovar, retraction of neurovascular structures, surgical approach for open reduction to the proximal femur, open reduction of the pertrochanteric fracture, preparation of femoral canal and placement of long intramedullary hip nail, placement of distal interlocking screw with perfect navajo technique, wound closure, safe transfer of the patient from the fracture top table to the patient's bed, and transferred the patient safely from the patient's bed to the fracture top table preoperatively. ANESTHESIA: General endotracheal anesthesia. SPECIMENS: None. DRAINS: None. ESTIMATED BLOOD LOSS: 1000 mL. BLOOD PRODUCTS GIVEN: One unit of packed red blood cells intraoperatively. DISPOSITION: The patient was extubated and transferred to PACU in stable condition and tolerated the procedure well. INDICATIONS FOR SURGERY: The patient is an 83-year-old female with no significant past medical history, who presented to the ER at [facility] on 02/08/2019 with right hip pain and inability to weight bear on right lower extremity or tolerate any range of motion at the hip. The patient and her family is visiting here from [place]. On 02/08/2019, they were at the restaurant having dinner, and the patient was exiting the restaurant when she fell while going down two steps landing on her right lower extremity and right hip. This was a witnessed fall by her daughter, who was at the dinner with her, who confirms the events. The patient does admit to hitting her head when she fell to the ground, but denies any loss of consciousness or syncopal episode leading to the fall. She denies any other musculoskeletal injury. She was brought to the emergency room at [facility] shortly after the fall via EMS. After review of imaging and evaluation by ER staff, she was diagnosed with a right hip fracture. She was admitted to the medical service under Dr. Florian, and orthopedic consultation was placed. She was evaluated early that morning by the orthopedic PA initially. After the orthopedic consultation was placed, I placed initial recommendations over the phone with the emergency room physician and communicated my plan with Dr. Florian, advising him of the plan for surgical intervention the next day. She was admitted to the medical service under Dr. Florian, and after evaluation by Dr. Florian, she was deemed medically optimized and ready for hip fracture fixation surgery. She was indicated for right hip closed versus open reduction and internal fixation with a long intramedullary hip nail. The risks, benefits, and alternatives to the procedure were discussed in length with the patient with the use of a Yi-speaking regional account director with the risks including, but not limited to infection, neurovascular damage, malunion, nonunion, failure of hardware, need for further surgery including removal of implants and total hip arthroplasty, failure of hardware and breakthrough the femoral head as well as screw pull-out and hardware migration, development of chronic pain and disability, development of blood clots including DVT and PE, inability to return to preinjury level of activity and independence, anesthesia reactions, and cardiopulmonary perioperative complications including . After answering all of her questions with the use of Yi-speaking regional account director and reviewing the imaging done at [facility] in the ER as well as pictures of what the long intramedullary hip nail looks like and describing in detail how the procedure is done, the patient accepted the risks and wished to proceed with surgery. She stated that she had a good understanding of the surgery to be done as well as her diagnosis. She was placed on the elective operating room scheduled for surgery in the next morning being 02/09/2019. PROCEDURE IN DETAIL: The patient was identified in the preoperative holding area, and the right hip was marked for surgery. Once the operative report is placed on [id number] & [facility], I will add it and add the remaining details of the procedure and disposition sections. Trell Rodríguez MD
== END 2019-02-13 17:05 | DRG 480 ==
LOC: H.ER 20:45 → H.ERHOLD 02-08 00:21 → H.MEDSURG1 02-08 02:48 → H.TEL 02-09 23:54
PROVIDERS: ADMIT Internal Medicine Pulmonary Disease; ATTEND Internal Medicine Pulmonary Disease
PROC: 30233N1 Transfusion of Nonautologous Red Blood Cells into Peripheral Vein, Percutaneous Approach (ICD-10-PCS; 2019-02-09)
PROC: 0QS604Z Reposition Right Upper Femur with Internal Fixation Device, Open Approach (ICD-10-PCS; principal; 2019-02-09 09:00)
DX: S72.141A Displaced intertrochanteric fracture of right femur, initial encounter for closed fracture (principal); I26.99 Other pulmonary embolism without acute cor pulmonale; D62 Acute posthemorrhagic anemia; W10.9XXA Fall (on) (from) unspecified stairs and steps, initial encounter; I95.9 Hypotension, unspecified; R00.0 Tachycardia, unspecified; R55 Syncope and collapse; Z90.49 Acquired absence of other specified parts of digestive tract; Y92.480 Sidewalk as the place of occurrence of the external cause

== ENCOUNTER 2019-02-13 15:09 | Inpatient (IN) | payer OTHER ==
[2019-02-13 19:56] VITALS: RESP 20
[2019-02-13] MEDS: Enoxaparin 80 mg Syringe SC SCH (22:12)
[2019-02-13] MEDS: Docusate-Senna 50 mg-8.6 mg Tab PO SCH (22:12)
[2019-02-14] MEDS: Enoxaparin 80 mg Syringe SC SCH ×2 (08:38→22:01)
[2019-02-14] MEDS: Multivitamin With Minerals Tab PO SCH (08:39)
[2019-02-14] MEDS: Cholecalciferol 1,000 INTLU TAB PO SCH (08:40)
[2019-02-14] MEDS ORDERED: Patient's Own Med (Iron Sucrose Complex [Venofer] 100 MG) IV SCH (09:00)
--- NOTE | 2019-02-14 13:58 | CP.PCM.PN ---
Subjective - Date & Time of Evaluation Date of Evaluation: 02/14/19 Time of Evaluation: 13:30 - Subjective Subjective: Patient seen and examined OOB to chair. Pain well controlled. Denies CP/SOB/N/fever/dizziness. No other complaints. Tolerating PT well. Objective - Vital Signs/Intake and Output Vital Signs (last 24 hours): Temp Pulse Resp BP Pulse Ox 99.3 F 113 H 20 135/77 100 02/14/19 08:32 02/14/19 10:00 02/14/19 08:32 02/14/19 08:32 02/14/19 10:00 - Medications Medications: Current Medications Acetaminophen (Tylenol 325mg Tab) 650 mg PO Q6 PRN PRN Reason: Pain, moderate (4-7) Calcium Carbonate (Oscal) 500 mg PO DAILY [facility] Cholecalciferol (Vitamin D) 4,000 intlu PO DAILY [facility] Last Admin: 02/14/19 08:40 Dose: 4,000 intlu Docusate Sodium (Colace) 100 mg PO BID [facility] Last Admin: 02/14/19 08:39 Dose: 100 mg Enoxaparin Sodium (Lovenox) 70 mg SC Q12 [facility]; Protocol Last Admin: 02/14/19 08:38 Dose: 70 mg Folic Acid (Folic Acid) 1 mg PO DAILY [facility] Last Admin: 02/14/19 08:39 Dose: 1 mg Iron Sucrose 100 mg/ Sodium (Chloride) 105 mls @ 105 mls/hr IV DAILY [facility] Last Admin: 02/14/19 08:40 Dose: 105 mls/hr Multivitamins/Minerals (Therapeutic-M Tab) 1 tab PO DAILY [facility] Last Admin: 02/14/19 08:39 Dose: 1 tab Pantoprazole Sodium (Protonix Ec Tab) 20 mg PO DAILY [facility] Senna/Docusate Sodium (Senokot S 50 Mg-8.6 Mg) 2 tab PO HS [facility] Last Admin: 02/13/19 22:12 Dose: 2 tab Tramadol HCl (Ultram) 50 mg PO Q6 PRN PRN Reason: Pain, moderate (4-7) Last Admin: 02/14/19 08:38 Dose: 50 mg - Extremities Exam Additional comments: RLE: Proximal dressings with moderate serous drainage, distal dressings CDI Proximal incision CDI with Mera moderate thigh swelling sensation intact SP/DP/TN motor intact EHL/FHL/TA/G pedal pulse intact calves soft NT Assessment and Plan (1) Fracture, intertrochanteric, right femur Assessment & Plan: POD#5 s/p R femur ORIF w/ IM nail Dressings changed Therapeutic anticoagulation as per Dr. Florian PT/OT Ice above d/w Dr. Rodríguez in agreement Status: Acute
--- NOTE | 2019-02-14 14:57 | CP.PCM.HP ---
History of Present Illness - History of Present Illness History of Present Illness: 83 y/o F, admitted to [facility] on 02/07/19 after found with Impacted comminuted Fx proximal R Femur after witnessed fall. Pt underwent R Hip ORIF on 02/09/19, and after, Pt developed b/l PE. On 02/13/19 was transferred to [address] [place] [address] , in [facility], to benefit from Physical Therapy due to RLE strength deficit, R Hip/Knee with decreased ROM, joint stiffness, also to continue Tx for PE. No: fever, chills, n/v but constipation, no CP. palpitations, back pain, dizziness, headache, SOB, cough. Present on Admission - Present on Admission Any Indicators Present on Admission: Yes History of DVT/PE: Yes Review of Systems - Constitutional Constitutional: Other (negative) - EENT Eyes: Other (negtaive) Ears: Other (negtaive) Nose/Mouth/Throat: Other (negative) - Cardiovascular Cardiovascular: Other (negative) - Respiratory Respiratory: Other (negative) - Gastrointestinal Gastrointestinal: Constipation - Genitourinary Genitourinary: Other (negative) - Musculoskeletal Musculoskeletal: Radiating Pain into Limb, Other (R hip/knee pain 2nd to fall, s/p ORIF) - Neurological Neurological: Other (negative) - Psychiatric Psychiatric: Other (negtaive) - Hematologic/Lymphatic Hematologic: Other (negative) Past Patient History - Past Medical History & Family History Past Medical History?: Yes Pertinent Family History: Unknown - Past Social History Smoking Status: Never Smoked Alcohol: None Drugs: Denies Home Situation {Lives}: With Family - CARDIAC Hx Cardiac Disorders: No - PULMONARY Hx Respiratory Disorders: Yes Hx Pulmonary Embolism: Yes - NEUROLOGICAL Hx Neurological Disorder: No - HEENT Hx HEENT Problems: No - RENAL Hx Chronic Kidney Disease: No - ENDOCRINE/METABOLIC Hx Endocrine Disorders: No - HEMATOLOGICAL/ONCOLOGICAL Hx Blood Disorders: Yes Hx Anemia: Yes Hx Blood Transfusions: Yes Hx Blood Transfusion Reaction: No - INTEGUMENTARY Hx Dermatological Problems: No - MUSCULOSKELETAL/RHEUMATOLOGICAL Hx Musculoskeletal Disorders: Yes Hx Falls: Yes Hx Fractures: Yes - GASTROINTESTINAL Hx Gastrointestinal Disorders: No - GENITOURINARY/GYNECOLOGICAL Hx Genitourinary Disorders: No - PSYCHIATRIC Hx Psychophysiologic Disorder: No Hx Substance Use: No - SURGICAL HISTORY Hx Surgeries: Yes Hx Appendectomy: Yes Hx Section: Yes Hx Open Reduction Internal Fixation: Yes (r hip 15) - ANESTHESIA Hx Anesthesia: Yes Hx Anesthesia Reactions: No Meds Allergies/Adverse Reactions: Allergies Allergy/AdvReac Type Severity Reaction Status Date / Time No Known Allergies Allergy Verified 02/13/19 17:43 Physical Exam - Constitutional Appears: No Acute Distress - Head Exam Head Exam: NORMAL INSPECTION - Eye Exam Eye Exam: PERRL - ENT Exam ENT Exam: Normal Exam - Neck Exam Neck exam: Positive for: Normal Inspection - Respiratory Exam Respiratory Exam: NORMAL BREATHING PATTERN - Cardiovascular Exam Cardiovascular Exam: Tachycardia - GI/Abdominal Exam GI & Abdominal Exam: Tenderness - Extremities Exam Additional comments: Surgical incision healing well, roxana wrap RLE, R leg 2 + non pitting edema, neuromuscular distal status good. - Back Exam Back exam: NORMAL INSPECTION - Neurological Exam Neurological exam: Alert, CN II-XII Intact, Oriented x3 Additional comments: No motor/sensory deficit - Psychiatric Exam Psychiatric exam: Normal Affect, Normal Mood - Skin Skin Exam: Warm Results - Vital Signs Recent Vital Signs: Last Vital Signs Temp 99.3 F 02/14/19 08:32 Pulse 113 H 02/14/19 10:00 Resp 20 02/14/19 08:32 BP 135/77 02/14/19 08:32 Pulse Ox 100 02/14/19 10:00 reviewed J.P. - Labs Result Diagrams: 02/16/19 06:20 02/16/19 06:20 Assessment & Plan (1) Fracture, intertrochanteric, right femur Status: Acute Priority: High (2) S/P ORIF (open reduction internal fixation) fracture Status: Acute (3) Pain in right hip Status: Acute Priority: High (4) Pulmonary embolism Status: Acute Priority: High (5) Status post fall Status: Acute Priority: High (6) Anemia Status: Acute Priority: High (7) Tachycardia Status: Acute - Assessment and Plan (Free Text) Plan: F/U CT Chest, continue Tramadol, Lovenox, Folic Acid, Iron, and rest of Tx. Orthopedic consult appreciated, Editor Producer consult., monitor Tachycardia and Hgb - Date & Time Date: 02/14/19 Time: 14:00
[2019-02-14] MEDS: Pantoprazole 20 mg EC Tab PO SCH (15:45)
[2019-02-14] MEDS ORDERED: Iodixanol 320 MG/ML 100 ML BOTTLE IV ONE (17:33)
[2019-02-14] MEDS ORDERED: Sodium Chloride 0.9% 50 ML IV ONE (17:33)
--- NOTE | 2019-02-14 17:41 | CP.PCM.CON ---
History of Present Illness - History of Present Illness History of Present Illness: Dr Vergara PMR consultation on Sneha Bains, born 1935 who has been admitted to [address] [facility] following a mechanical fall with right hip fracture and underwent ORIF. Pain is a challenge at this point and only on Tramadol. Right leg swelling and US was performed and was negative for a DVT She was previously independent in care and ambulation Review of Systems - Constitutional Constitutional: absent: Chills - EENT Ears: absent: Ear Discharge, Ear Pain Nose/Mouth/Throat: absent: Nasal Congestion, Nasal Discharge - Cardiovascular Cardiovascular: absent: Chest Pain - Respiratory Respiratory: absent: Cough, Dyspnea, Hemoptysis - Gastrointestinal Gastrointestinal: Bloating. absent: Belching, Constipation - Musculoskeletal Musculoskeletal: absent: Back Pain - Integumentary Integumentary: absent: Bleeding Lesions - Neurological Neurological: absent: Abnormal Movements, Burning Sensations, Dizziness - Psychiatric Psychiatric: absent: Anxiety Past Patient History - Past Medical History & Family History Past Medical History?: Yes - Past Social History Smoking Status: Never Smoked Alcohol: None Drugs: Denies Home Situation {Lives}: With Family - CARDIAC Hx Cardiac Disorders: No - PULMONARY Hx Respiratory Disorders: Yes Hx Pulmonary Embolism: Yes - NEUROLOGICAL Hx Neurological Disorder: No - HEENT Hx HEENT Problems: No - RENAL Hx Chronic Kidney Disease: No - ENDOCRINE/METABOLIC Hx Endocrine Disorders: No - HEMATOLOGICAL/ONCOLOGICAL Hx Blood Disorders: Yes Hx Anemia: Yes Hx Blood Transfusions: Yes Hx Blood Transfusion Reaction: No - INTEGUMENTARY Hx Dermatological Problems: No - MUSCULOSKELETAL/RHEUMATOLOGICAL Hx Musculoskeletal Disorders: Yes Hx Falls: Yes Hx Fractures: Yes - GASTROINTESTINAL Hx Gastrointestinal Disorders: No - GENITOURINARY/GYNECOLOGICAL Hx Genitourinary Disorders: No - PSYCHIATRIC Hx Psychophysiologic Disorder: No Hx Substance Use: No - SURGICAL HISTORY Hx Surgeries: Yes Hx Appendectomy: Yes Hx Section: Yes Hx Open Reduction Internal Fixation: Yes (r hip 02/09) - ANESTHESIA Hx Anesthesia: Yes Hx Anesthesia Reactions: No Meds Allergies/Adverse Reactions: Allergies Allergy/AdvReac Type Severity Reaction Status Date / Time No Known Allergies Allergy Verified 02/13/19 17:43 - Medications Medications: Current Medications Acetaminophen (Tylenol 325mg Tab) 650 mg PO Q6 PRN PRN Reason: Pain, moderate (4-7) Calcium Carbonate (Oscal) 500 mg PO DAILY [facility] Last Admin: 03/20/19 15:47 Dose: 500 mg Cholecalciferol (Vitamin D) 4,000 intlu PO DAILY [facility] Last Admin: 02/14/19 08:40 Dose: 4,000 intlu Docusate Sodium (Colace) 100 mg PO BID [facility] Last Admin: 02/14/19 16:57 Dose: 100 mg Enoxaparin Sodium (Lovenox) 70 mg SC Q12 [facility]; Protocol Last Admin: 02/14/19 08:38 Dose: 70 mg Folic Acid (Folic Acid) 1 mg PO DAILY [facility] Last Admin: 02/14/19 08:39 Dose: 1 mg Iron Sucrose 100 mg/ Sodium (Chloride) 105 mls @ 105 mls/hr IV DAILY [facility] Last Admin: 02/14/19 08:40 Dose: 105 mls/hr Multivitamins/Minerals (Therapeutic-M Tab) 1 tab PO DAILY [facility] Last Admin: 02/14/19 08:39 Dose: 1 tab Oxycodone HCl (Oxycontin Extended Release Tab) 10 mg PO Q12 [facility] Stop: 02/17/19 21:01 Oxycodone HCl (Oxycodone Immediate Release Tab) 5 mg PO Q6 PRN PRN Reason: 7-09/06 pain Pantoprazole Sodium (Protonix Ec Tab) 20 mg PO DAILY [facility] Last Admin: 02/14/19 15:45 Dose: 20 mg Senna/Docusate Sodium (Senokot S 50 Mg-8.6 Mg) 2 tab PO HS [facility] Last Admin: 02/13/19 22:12 Dose: 2 tab Physical Exam - Constitutional Appears: Non-toxic - Head Exam Head Exam: ATRAUMATIC, NORMAL INSPECTION, NORMOCEPHALIC - Eye Exam Eye Exam: EOMI - ENT Exam ENT Exam: Mucous Membranes Moist - Respiratory Exam Respiratory Exam: NORMAL BREATHING PATTERN - Cardiovascular Exam Cardiovascular Exam: REGULAR RHYTHM - GI/Abdominal Exam GI & Abdominal Exam: absent: Distended - Extremities Exam Extremities exam: Positive for: pedal edema (up through thigh on the right, none on the left). Negative for: calf tenderness Results - Vital Signs Recent Vital Signs: Last Vital Signs Temp 99.3 F 02/14/19 08:32 Pulse 113 H 02/14/19 10:00 Resp 20 02/14/19 08:32 BP 135/77 02/14/19 08:32 Pulse Ox 100 02/14/19 10:00 Assessment & Plan - Assessment and Plan (Free Text) Assessment: 83 year old female with right hip fracture s/p ORIF doppler negative pain is an issue and have adjusted the medication and starting next week will begin to taper off narcotics Patient continues to be an excellent TCU rehabilitation candidate and will have continued focused PT, OT and recreational therapy to help facilitate a safe and appropriate d/c plan
--- NOTE | 2019-02-14 18:32 | CT ---
Date of service: 02/14/2019 PROCEDURE: CT Chest with contrast (Pulmonary Angiogram) HISTORY: R/O PE COMPARISON: None available. TECHNIQUE: Axial computed tomography images were obtained of the chest in the pulmonary arterial phase of enhancement. Coronal and sagittal reformatted images were created and reviewed. Intravenous contrast dose: 67 cc Visipaque 320 contrast material. Radiation dose: Total exam DLP = 0.0 mGy-cm. This CT exam was performed using one or more of the following dose reduction techniques: Automated exposure control, adjustment of the mA and/or kV according to patient size, and/or use of iterative reconstruction technique. FINDINGS: PULMONARY ARTERIES: The visualized pulmonary trunk, right and left main, lobar segmental and proximal subsegmental branches of the pulmonary arteries are relatively well opacified with no definitive filling defects seen to suggest acute central pulmonary embolus. Pulmonary trunk measures approximately 2.75 cm AORTA: No acute findings. No thoracic aortic aneurysm. Ascending thoracic aorta measures approximately 3.75 cm and descending thoracic aorta measures approximately 2.5 cm. . There is [id number] aortic atherosclerotic calcification or mural plaque present. LUNGS: Mild atelectatic changes are seen both lung bases including the posterior inferior margins of the right upper lobe. There are also areas of curvilinear scarring seen in the anterior aspect of the right lung apex /upper lobe Small calcified granuloma posterior aspect right upper lobe. PLEURAL SPACES: Unremarkable. No effusion or pneumothorax. HEART: Heart is enlarged. No significant pericardial effusion. LYMPH NODES: No significant mediastinal or hilar adenopathy. The trachea is midline and patent with no large central endoluminal lesions. Air is seen throughout the proximal esophagus. There is a small hiatal hernia present. BONES, CHEST WALL: Chronic anterior wedge compression fracture of the T12 and superior endplate of the T11 segments. There is a hemangioma within the T7 vertebral body segment. OTHER FINDINGS: Unremarkable. IMPRESSION: No evidence of acute central pulmonary embolus. Cardiomegaly. Mild bibasilar atelectasis on with minor atelectasis seen in the posterior inferior aspect right upper lobe along with a small calcified granuloma. See above discussion for additional details and findings.
[2019-02-14] MEDS: oxyCODONE 10 mg ER Tab (oxyCONTIN) PO SCH (22:00)
[2019-02-14] MEDS: Docusate-Senna 50 mg-8.6 mg Tab PO SCH (22:01)
--- NOTE | 2019-02-15 09:10 | CP.PCM.PN ---
Subjective - Date & Time of Evaluation Date of Evaluation: 02/15/19 Time of Evaluation: 08:30 - Subjective Subjective: Patient seen and examined at bedside. Pain well controlled. Tolerating PT well. No other complaints. Objective - Vital Signs/Intake and Output Vital Signs (last 24 hours): Temp Pulse Resp BP Pulse Ox 98.0 F 109 H 20 132/80 98 02/15/19 08:25 02/15/19 08:25 02/15/19 08:25 02/15/19 08:25 02/15/19 08:25 - Medications Medications: Current Medications Acetaminophen (Tylenol 325mg Tab) 650 mg PO Q6 PRN PRN Reason: Pain, moderate (4-7) Calcium Carbonate (Oscal) 500 mg PO DAILY [facility] Last Admin: 02/14/19 15:47 Dose: 500 mg Cholecalciferol (Vitamin D) 4,000 intlu PO DAILY [facility] Last Admin: 02/14/19 08:40 Dose: 4,000 intlu Docusate Sodium (Colace) 100 mg PO BID [facility] Last Admin: 02/14/19 16:57 Dose: 100 mg Enoxaparin Sodium (Lovenox) 70 mg SC Q12 [facility]; Protocol Last Admin: 02/14/19 22:01 Dose: 70 mg Folic Acid (Folic Acid) 1 mg PO DAILY [facility] Last Admin: 02/14/19 08:39 Dose: 1 mg Iron Sucrose 100 mg/ Sodium (Chloride) 105 mls @ 105 mls/hr IV DAILY [facility] Last Admin: 02/14/19 08:40 Dose: 105 mls/hr Multivitamins/Minerals (Therapeutic-M Tab) 1 tab PO DAILY [facility] Last Admin: 02/14/19 08:39 Dose: 1 tab Oxycodone HCl (Oxycontin Extended Release Tab) 10 mg PO Q12 [facility] Stop: 02/17/19 21:01 Last Admin: 02/14/19 22:00 Dose: 10 mg Oxycodone HCl (Oxycodone Immediate Release Tab) 5 mg PO Q6 PRN PRN Reason: 7-10/10 pain Pantoprazole Sodium (Protonix Ec Tab) 20 mg PO DAILY [facility] Last Admin: 02/14/19 15:45 Dose: 20 mg Senna/Docusate Sodium (Senokot S 50 Mg-8.6 Mg) 2 tab PO HS [facility] Last Admin: 02/14/19 22:01 Dose: 2 tab Tramadol HCl (Ultram) 50 mg PO Q6 PRN PRN Reason: 4-05/07 pain - Extremities Exam Additional comments: RLE: Proximal dressings with mild serous drainage, distal dressings CDI Proximal incision CDI with [place] moderate thigh swelling sensation intact SP/DP/TN motor intact EHL/FHL/TA/G pedal pulse intact calves soft NT Assessment and Plan (1) Fracture, intertrochanteric, right femur Assessment & Plan: POD#6 s/p R femur ORIF w/ IM nail Dressings changed, compressive dressings applied repeat CT PE shows no evidence of PE, fat embolism likely will hold therapeutic lovenox and start maintenance dose tomorrow as d/w Dr. Florian PT/OT above d/w Dr. Rodríguez in agreement Status: Acute Radiology Interpretation - Notes: Notes:: Accession No. : [id number] Patient Name / ID : VERONIQUE Nguyễn / [id number] Exam Date : 02/14/2019 17:33:08 ( Approved ) Study Comment : Sex / Age : F / 83Y Creator : Rome Odell MD Dictator : Rome Odell MD Regional Training Manager : Warp Splitter : Rome Odell MD Approver2 : Report Date : 02/14/2019 18:26:42 My Comment : Date of service: 02/14/2019 PROCEDURE: CT Chest with contrast (Pulmonary Angiogram) HISTORY: R/O PE COMPARISON: None available. TECHNIQUE: Axial computed tomography images were obtained of the chest in the pulmonary arterial phase of enhancement. Coronal and sagittal reformatted images were created and reviewed. Intravenous contrast dose: 67 cc Visipaque 320 contrast material. Radiation dose: Total exam DLP = 0.0 mGy-cm. This CT exam was performed using one or more of the following dose reduction techniques: Automated exposure control, adjustment of the mA and/or kV according to patient size, and/or use of iterative reconstruction technique. FINDINGS: PULMONARY ARTERIES: The visualized pulmonary trunk, right and left main, lobar segmental and proximal subsegmental branches of the pulmonary arteries are relatively well opacified with no definitive filling defects seen to suggest acute central pulmonary embolus. Pulmonary trunk measures approximately 2.75 cm AORTA: No acute findings. No thoracic aortic aneurysm. Ascending thoracic aorta measures approximately 3.75 cm and descending thoracic aorta measures approximately 2.5 cm. . There is [id number] aortic atherosclerotic calcification or mural plaque present. LUNGS: Mild atelectatic changes are seen both lung bases including the posterior inferior margins of the right upper lobe. There are also areas of curvilinear scarring seen in the anterior aspect of the right lung apex /upper lobe Small calcified granuloma posterior aspect right upper lobe. PLEURAL SPACES: Unremarkable. No effusion or pneumothorax. HEART: Heart is enlarged. No significant pericardial effusion. LYMPH NODES: No significant mediastinal or hilar adenopathy. The trachea is midline and patent with no large central endoluminal lesions. Air is seen throughout the proximal esophagus. There is a small hiatal hernia present. BONES, CHEST WALL: Chronic anterior wedge compression fracture of the T12 and superior endplate of the T11 segments. There is a hemangioma within the T7 vertebral body segment. OTHER FINDINGS: Unremarkable. IMPRESSION: No evidence of acute central pulmonary embolus. Cardiomegaly. Mild bibasilar atelectasis on with minor atelectasis seen in the posterior inferior aspect right upper lobe along with a small calcified granuloma. See above discussion for additional details and findings.
[2019-02-15] MEDS: oxyCODONE 10 mg ER Tab (oxyCONTIN) PO SCH ×2 (09:35→22:55)
[2019-02-15] MEDS: Pantoprazole 20 mg EC Tab PO SCH (09:38)
[2019-02-15] MEDS: Enoxaparin 80 mg Syringe SC SCH (09:38)
[2019-02-15] MEDS: Multivitamin With Minerals Tab PO SCH (09:38)
[2019-02-15] MEDS: Cholecalciferol 1,000 INTLU TAB PO SCH (09:39)
--- NOTE | 2019-02-15 15:43 | CP.PCM.PN ---
Subjective - Date & Time of Evaluation Date of Evaluation: 02/15/19 Time of Evaluation: 13:30 - Subjective Subjective: F/U Fx R Hip Mild pain R Hip Objective - Vital Signs/Intake and Output Vital Signs (last 24 hours): Temp Pulse Resp BP Pulse Ox 98.0 F 109 H 20 132/80 98 02/15/19 08:25 02/15/19 08:25 02/15/19 08:25 02/15/19 08:25 02/15/19 08:25 - Medications Medications: Current Medications Acetaminophen (Tylenol 325mg Tab) 650 mg PO Q6 PRN PRN Reason: Pain, moderate (4-7) Calcium Carbonate (Oscal) 500 mg PO DAILY [facility] Last Admin: 02/15/19 09:38 Dose: 500 mg Cholecalciferol (Vitamin D) 4,000 intlu PO DAILY [facility] Last Admin: 02/15/19 09:39 Dose: 4,000 intlu Docusate Sodium (Colace) 100 mg PO BID [facility] Last Admin: 02/15/19 09:38 Dose: 100 mg Enoxaparin Sodium (Lovenox) 40 mg SC DAILY [facility]; Protocol Folic Acid (Folic Acid) 1 mg PO DAILY [facility] Last Admin: 02/15/19 09:37 Dose: 1 mg Iron Sucrose 100 mg/ Sodium (Chloride) 105 mls @ 105 mls/hr IV DAILY [facility] Last Admin: 02/15/19 09:39 Dose: 105 mls/hr Multivitamins/Minerals (Therapeutic-M Tab) 1 tab PO DAILY [facility] Last Admin: 02/15/19 09:38 Dose: 1 tab Oxycodone HCl (Oxycontin Extended Release Tab) 10 mg PO Q12 [facility] Stop: 02/17/19 21:01 Last Admin: 02/15/19 09:35 Dose: 10 mg Oxycodone HCl (Oxycodone Immediate Release Tab) 5 mg PO Q6 PRN PRN Reason: 7-09/06 pain Pantoprazole Sodium (Protonix Ec Tab) 20 mg PO DAILY [facility] Last Admin: 02/15/19 09:38 Dose: 20 mg Senna/Docusate Sodium (Senokot S 50 Mg-8.6 Mg) 2 tab PO HS [facility] Last Admin: 02/14/19 22:01 Dose: 2 tab Tramadol HCl (Ultram) 50 mg PO Q6 PRN PRN Reason: 4-05/07 pain Last Admin: 02/15/19 12:31 Dose: 50 mg - Constitutional Appears: No Acute Distress - Head Exam Head Exam: NORMAL INSPECTION - Eye Exam Eye Exam: PERRL - ENT Exam ENT Exam: Normal Exam - Neck Exam Neck Exam: Normal Inspection - Respiratory Exam Respiratory Exam: NORMAL BREATHING PATTERN - Cardiovascular Exam Cardiovascular Exam: Tachycardia - GI/Abdominal Exam GI & Abdominal Exam: Soft - Extremities Exam Additional comments: Rafat Wrapp RLE, 1+ non pitting edema R leg, neuromuscular distal status good. - Back Exam Back Exam: NORMAL INSPECTION - Neurological Exam Neurological Exam: Alert, CN II-XII Intact, Oriented x3. absent: Motor Sensory Deficit - Psychiatric Exam Psychiatric exam: Normal Mood - Skin Skin Exam: Warm Assessment and Plan (1) Fracture, intertrochanteric, right femur Status: Acute (2) S/P ORIF (open reduction internal fixation) fracture Assessment & Plan: R hip Status: Acute (3) Pain in right hip Status: Acute (4) Pulmonary embolism Assessment & Plan: ,CTA Chest, no PE, previous Dopler L/E no DVT, Patient had fat embolism during surgical priocedure Status: Acute (5) Status post fall Status: Acute (6) Anemia Status: Acute (7) Tachycardia Status: Acute - Assessment and Plan (Free Text) Plan: Percocet , Iron, decrease Lovenox to 40mg SQ, continue rest of Tx, PT
[2019-02-15] MEDS ORDERED: Magnesium Hydroxide Susp 30 ml UD PO PRN (18:00)
--- NOTE | 2019-02-15 18:00 | CP.PCM.PN ---
Subjective - Date & Time of Evaluation Date of Evaluation: 02/15/19 Time of Evaluation: 17:59 - Subjective Subjective: Notes pain in the leg, especially with movements appears quite comfortable Objective - Vital Signs/Intake and Output Vital Signs (last 24 hours): Temp Pulse Resp BP Pulse Ox 98.9 F 125 H 20 133/80 94 L 02/15/19 17:56 02/15/19 17:56 02/15/19 17:56 02/15/19 17:56 02/15/19 17:56 - Medications Medications: Current Medications Acetaminophen (Tylenol 325mg Tab) 650 mg PO Q6 PRN PRN Reason: Pain, moderate (4-7) Calcium Carbonate (Oscal) 500 mg PO DAILY [facility] Last Admin: 02/15/19 09:38 Dose: 500 mg Cholecalciferol (Vitamin D) 4,000 intlu PO DAILY [facility] Last Admin: 02/15/19 09:39 Dose: 4,000 intlu Docusate Sodium (Colace) 100 mg PO BID [facility] Last Admin: 02/15/19 16:59 Dose: 100 mg Enoxaparin Sodium (Lovenox) 40 mg SC DAILY [facility]; Protocol Folic Acid (Folic Acid) 1 mg PO DAILY [facility] Last Admin: 02/15/19 09:37 Dose: 1 mg Iron Sucrose 100 mg/ Sodium (Chloride) 105 mls @ 105 mls/hr IV DAILY [facility] Last Admin: 02/15/19 09:39 Dose: 105 mls/hr Multivitamins/Minerals (Therapeutic-M Tab) 1 tab PO DAILY [facility] Last Admin: 02/15/19 09:38 Dose: 1 tab Oxycodone HCl (Oxycontin Extended Release Tab) 10 mg PO Q12 [facility] Stop: 02/17/19 21:01 Last Admin: 02/15/19 09:35 Dose: 10 mg Oxycodone HCl (Oxycodone Immediate Release Tab) 5 mg PO Q6 PRN PRN Reason: 7-10/10 pain Pantoprazole Sodium (Protonix Ec Tab) 20 mg PO DAILY [facility] Last Admin: 02/15/19 09:38 Dose: 20 mg Senna/Docusate Sodium (Senokot S 50 Mg-8.6 Mg) 2 tab PO HS [facility] Last Admin: 02/14/19 22:01 Dose: 2 tab Tramadol HCl (Ultram) 50 mg PO Q6 PRN PRN Reason: -05/07 pain Last Admin: 02/15/19 12:31 Dose: 50 mg - Constitutional Appears: Well, Non-toxic, No Acute Distress - Head Exam Head Exam: ATRAUMATIC, NORMAL INSPECTION, NORMOCEPHALIC - Eye Exam Eye Exam: EOMI - ENT Exam ENT Exam: Mucous Membranes Moist - Respiratory Exam Respiratory Exam: NORMAL BREATHING PATTERN - GI/Abdominal Exam GI & Abdominal Exam: Distended. absent: Guarding - Neurological Exam Neurological Exam: Alert, Awake, CN II-XII Intact - Psychiatric Exam Psychiatric exam: Normal Affect, Normal Mood Assessment and Plan - Assessment and Plan (Free Text) Assessment: Sneha Bains, born 1935 who has been admitted to [address] [facility]CU following a mechanical fall with right hip fracture and underwent ORIF. Pain is a challenge at this point and only on Tramadol. Right leg swelling and US was performed and was negative for a DVT She was previously independent in care and ambulation PT/OT to continue to help increase functional independence Pain: I had increased her narcotics but do not want to go beyond this dosage. Vascular: no evidence of DVT GI: No evidence of constipation or diarrhea Patient continues to be an excellent TCU rehabilitation candidate and will have continued focused PT, OT and recreational therapy to help facilitate a safe and appropriate d/c plan
[2019-02-15] MEDS: Docusate-Senna 50 mg-8.6 mg Tab PO SCH (22:56)
[2019-02-16 06:49] LABS: PROTHROMBIN TIME 11.7 Seconds (9.8-13.1)
[2019-02-16 07:00] LABS: BLOOD UREA NITROGEN 12 mg/dl (7-17); CALCIUM 8.4 mg/dL (8.4-10.2); GFR NON-AFRICAN AMERICAN > 60
[2019-02-16 07:04] LABS: HEMOGLOBIN 9.2 g/dL (12.0-16.0); RBC 2.88 Mil/uL (3.80-5.20); RED CELL DISTRIBUTION WIDTH 15.2 % (11.5-14.5); WHITE BLOOD COUNT 7.8 K/uL (4.8-10.8)
[2019-02-16 07:07] LABS: MEAN CELL VOLUME 93.9 fl (81.0-99.0)
[2019-02-16] MEDS ORDERED: Enoxaparin 40 mg Syringe SC SCH (09:00)
[2019-02-16] MEDS: oxyCODONE 5 mg Immediate Release Tab PO PRN ×2 (09:26→14:45)
[2019-02-16] MEDS: Pantoprazole 20 mg EC Tab PO SCH (09:28)
[2019-02-16] MEDS: Multivitamin With Minerals Tab PO SCH (09:28)
[2019-02-16] MEDS: Cholecalciferol 1,000 INTLU TAB PO SCH (09:28)
[2019-02-16] MEDS: oxyCODONE 10 mg ER Tab (oxyCONTIN) PO SCH ×2 (10:58→21:41)
--- NOTE | 2019-02-16 12:16 | CP.PCM.PN ---
Subjective - Date & Time of Evaluation Date of Evaluation: 02/16/19 Time of Evaluation: 10:00 - Subjective Subjective: Patient with daughter at bedside. Patient improving slowly with PT. No new complaints. Objective - Vital Signs/Intake and Output Vital Signs (last 24 hours): Temp Pulse Resp BP Pulse Ox 98.8 F 94 H 20 118/66 94 L 02/16/19 07:57 02/16/19 07:57 02/16/19 07:57 02/16/19 07:57 02/16/19 07:57 - Medications Medications: Current Medications Acetaminophen (Tylenol 325mg Tab) 650 mg PO Q6 PRN PRN Reason: Pain, moderate (4-7) Calcium Carbonate (Oscal) 500 mg PO DAILY [facility] Last Admin: 02/16/19 09:27 Dose: 500 mg Cholecalciferol (Vitamin D) 4,000 intlu PO DAILY [facility] Last Admin: 02/16/19 09:28 Dose: 4,000 intlu Docusate Sodium (Colace) 100 mg PO BID [facility] Last Admin: 02/16/19 09:27 Dose: 100 mg Enoxaparin Sodium (Lovenox) 40 mg SC DAILY [facility]; Protocol Folic Acid (Folic Acid) 1 mg PO DAILY [facility] Last Admin: 02/16/19 09:27 Dose: 1 mg Iron Sucrose 100 mg/ Sodium (Chloride) 105 mls @ 105 mls/hr IV DAILY [facility] Last Admin: 02/16/19 09:28 Dose: 105 mls/hr Magnesium Hydroxide (Milk Of Magnesia) 30 ml PO DAILY PRN PRN Reason: Constipation Multivitamins/Minerals (Therapeutic-M Tab) 1 tab PO DAILY [facility] Last Admin: 02/16/19 09:28 Dose: 1 tab Oxycodone HCl (Oxycontin Extended Release Tab) 10 mg PO Q12 [facility] Stop: 02/17/19 21:01 Last Admin: 02/16/19 10:58 Dose: 10 mg Oxycodone HCl (Oxycodone Immediate Release Tab) 5 mg PO Q6 PRN PRN Reason: 7-10/10 pain Last Admin: 02/16/19 09:26 Dose: 5 mg Pantoprazole Sodium (Protonix Ec Tab) 20 mg PO DAILY [facility] Last Admin: 02/16/19 09:28 Dose: 20 mg Senna/Docusate Sodium (Senokot S 50 Mg-8.6 Mg) 2 tab PO HS [facility] Last Admin: 02/15/19 22:56 Dose: 2 tab Tramadol HCl (Ultram) 50 mg PO Q6 PRN PRN Reason: 4-6/10 pain Last Admin: 02/15/19 12:31 Dose: 50 mg - Labs Labs: 02/16/19 06:20 02/16/19 06:20 PT 11.7 Seconds (9.8-13.1) 02/16/19 06:20 INR 1.0 02/16/19 06:20 - Extremities Exam Additional comments: RLE: scant serous drainage on dressing, which is falling off. Wound cleaned and op site applied. No active drainage. Appears to be much less drainage from earlier in week. +ROM ankletoes, sensation intact, +DP/PT pules calves soft NT neg homans Assessment and Plan (1) Fracture, intertrochanteric, right femur Assessment & Plan: POD#7 s/p long IM nail repeat chest CT shows no PE, lovenox changed to proph dosing, will monitor hip drainage as it should now subside PT/OT pharmacy called as lovenox 40mg held as they needed new Cr clearance, pharmacist reviewed labs and released medication. RN notified to give now d/w Dr. Marroquin, agrees with above Status: Acute (2) Vitamin D deficiency Status: Acute (3) Acute blood loss anemia Status: Acute
--- NOTE | 2019-02-16 14:12 | CP.PCM.PN ---
Subjective - Date & Time of Evaluation Date of Evaluation: 02/16/19 Time of Evaluation: 15:00 - Subjective Subjective: F/U x R Hip Pain R hip, relieved with Percocet. Objective - Vital Signs/Intake and Output Vital Signs (last 24 hours): Temp Pulse Resp BP Pulse Ox 98.8 F 94 H 20 118/66 94 L 02/16/19 07:57 02/16/19 07:57 02/16/19 07:57 02/16/19 07:57 02/16/19 07:57 - Medications Medications: Current Medications Acetaminophen (Tylenol 325mg Tab) 650 mg PO Q6 PRN PRN Reason: Pain, moderate (4-7) Calcium Carbonate (Oscal) 500 mg PO DAILY [facility] Last Admin: 02/16/19 09:27 Dose: 500 mg Cholecalciferol (Vitamin D) 4,000 intlu PO DAILY [facility] Last Admin: 02/16/19 09:28 Dose: 4,000 intlu Docusate Sodium (Colace) 100 mg PO BID [facility] Last Admin: 02/16/19 09:27 Dose: 100 mg Enoxaparin Sodium (Lovenox) 40 mg SC DAILY [facility]; Protocol Last Admin: 02/16/19 13:21 Dose: 40 mg Ferrous Sulfate (Feosol) 325 mg PO DAILY [facility] Last Admin: 02/16/19 13:21 Dose: 325 mg Folic Acid (Folic Acid) 1 mg PO DAILY [facility] Last Admin: 02/16/19 09:27 Dose: 1 mg Iron Sucrose 100 mg/ Sodium (Chloride) 105 mls @ 105 mls/hr IV DAILY [facility] Last Admin: 02/16/19 09:28 Dose: 105 mls/hr Magnesium Hydroxide (Milk Of Magnesia) 30 ml PO DAILY PRN PRN Reason: Constipation Multivitamins/Minerals (Therapeutic-M Tab) 1 tab PO DAILY [facility] Last Admin: 02/16/19 09:28 Dose: 1 tab Oxycodone HCl (Oxycontin Extended Release Tab) 10 mg PO Q12 [facility] Stop: 02/17/19 21:01 Last Admin: 02/16/19 10:58 Dose: 10 mg Oxycodone HCl (Oxycodone Immediate Release Tab) 5 mg PO Q6 PRN PRN Reason: 7-10/10 pain Last Admin: 02/16/19 09:26 Dose: 5 mg Pantoprazole Sodium (Protonix Ec Tab) 20 mg PO DAILY [facility] Last Admin: 02/16/19 09:28 Dose: 20 mg Senna/Docusate Sodium (Senokot S 50 Mg-8.6 Mg) 2 tab PO HS [facility] Last Admin: 02/15/19 22:56 Dose: 2 tab Tramadol HCl (Ultram) 50 mg PO Q6 PRN PRN Reason: 4-6/10 pain Last Admin: 02/15/19 12:31 Dose: 50 mg - Labs Labs: 02/16/19 06:20 02/16/19 06:20 PT 11.7 Seconds (9.8-13.1) 02/16/19 06:20 INR 1.0 02/16/19 06:20 - Constitutional Appears: No Acute Distress - Head Exam Head Exam: NORMAL INSPECTION - Eye Exam Eye Exam: PERRL - ENT Exam ENT Exam: Normal Exam - Neck Exam Neck Exam: Normal Inspection - Respiratory Exam Respiratory Exam: NORMAL BREATHING PATTERN - Cardiovascular Exam Cardiovascular Exam: Tachycardia - GI/Abdominal Exam GI & Abdominal Exam: Soft - Extremities Exam Additional comments: Surgical scar healing well, dressing with roxana wrap from hip to foot, R leg 1+ non pitting edema, neuromuscular distal status good - Back Exam Back Exam: NORMAL INSPECTION - Neurological Exam Neurological Exam: Alert, CN II-XII Intact, Oriented x3. absent: Motor Sensory Deficit - Psychiatric Exam Psychiatric exam: Normal Affect, Normal Mood - Skin Skin Exam: Warm Assessment and Plan (1) Fracture, intertrochanteric, right femur Status: Acute (2) S/P ORIF (open reduction internal fixation) fracture Status: Acute (3) Pain in right hip Status: Acute (4) Pulmonary embolism Status: Acute (5) Status post fall Status: Acute (6) Anemia Status: Acute (7) Tachycardia Status: Acute - Assessment and Plan (Free Text) Plan: VQ lung scan negative, start Lovenox 40, continue rest of Tx and PT.
[2019-02-16] MEDS: Docusate-Senna 50 mg-8.6 mg Tab PO SCH (21:41)
[2019-02-16 23:08] LABS: SQUAMOUS EPITHIAL 4 /hpf (0-5); URINE BACTERIA RARE (<OCC); URINE BILIRUBIN NEGATIVE (NEGATIVE); URINE BLOOD SMALL (NEGATIVE); URINE CLARITY SLIGHTY-CLOUDY (Clear); URINE COLOR YELLOW (YELLOW); URINE GLUCOSE (UA) NEG (NEGATIVE); URINE LEUKOCYTE ESTERASE SMALL Leu/uL (Negative); URINE PROTEIN NEGATIVE (NEGATIVE); URINE UROBILINOGEN 0.2-1.0 mg/dL (0.2-1.0)
[2019-02-17] MEDS: oxyCODONE 10 mg ER Tab (oxyCONTIN) PO SCH ×2 (08:40→21:26)
[2019-02-17] MEDS: Cholecalciferol 1,000 INTLU TAB PO SCH (08:41)
[2019-02-17] MEDS: Pantoprazole 20 mg EC Tab PO SCH (08:42)
[2019-02-17] MEDS: Multivitamin With Minerals Tab PO SCH (08:42)
[2019-02-17] MEDS: oxyCODONE 5 mg Immediate Release Tab PO PRN (12:36)
--- NOTE | 2019-02-17 14:45 | CP.PCM.PN ---
Subjective - Date & Time of Evaluation Date of Evaluation: 02/17/19 Time of Evaluation: 14:30 - Subjective Subjective: F/U Fx R Hip Pain in R hip, doing well with PT Objective - Vital Signs/Intake and Output Vital Signs (last 24 hours): Temp Pulse Resp BP Pulse Ox 98.1 F 96 H 20 132/77 95 02/17/19 08:32 02/17/19 08:32 02/17/19 08:32 02/17/19 08:32 02/17/19 08:32 - Medications Medications: Current Medications Acetaminophen (Tylenol 325mg Tab) 650 mg PO Q6 PRN PRN Reason: Pain, moderate (4-7) Calcium Carbonate (Oscal) 500 mg PO DAILY [facility] Last Admin: 02/17/19 08:42 Dose: 500 mg Cholecalciferol (Vitamin D) 4,000 intlu PO DAILY [facility] Last Admin: 02/17/19 08:41 Dose: 4,000 intlu Docusate Sodium (Colace) 100 mg PO BID [facility] Last Admin: 02/17/19 08:41 Dose: 100 mg Ferrous Sulfate (Feosol) 325 mg PO BIDWM [facility] Folic Acid (Folic Acid) 1 mg PO DAILY [facility] Last Admin: 02/17/19 08:50 Dose: 1 mg Iron Sucrose 100 mg/ Sodium (Chloride) 105 mls @ 105 mls/hr IV DAILY [facility] Last Admin: 02/17/19 08:41 Dose: 105 mls/hr Magnesium Hydroxide (Milk Of Magnesia) 30 ml PO DAILY PRN PRN Reason: Constipation Multivitamins/Minerals (Therapeutic-M Tab) 1 tab PO DAILY [facility] Last Admin: 02/17/19 08:42 Dose: 1 tab Oxycodone HCl (Oxycontin Extended Release Tab) 10 mg PO Q12 [facility] Stop: 02/17/19 21:01 Last Admin: 02/17/19 08:40 Dose: 10 mg Oxycodone HCl (Oxycodone Immediate Release Tab) 5 mg PO Q6 PRN PRN Reason: 7-10/10 pain Last Admin: 02/17/19 12:36 Dose: 5 mg Pantoprazole Sodium (Protonix Ec Tab) 20 mg PO DAILY [facility] Last Admin: 02/17/19 08:42 Dose: 20 mg Senna/Docusate Sodium (Senokot S 50 Mg-8.6 Mg) 2 tab PO HS [facility] Last Admin: 02/16/19 21:41 Dose: 2 tab Tramadol HCl (Ultram) 50 mg PO Q6 PRN PRN Reason: 4-6 pain Last Admin: 02/15/19 12:31 Dose: 50 mg - Labs Labs: 02/16/19 06:20 02/16/19 06:20 PT 11.7 Seconds (9.8-13.1) 02/16/19 06:20 INR 1.0 02/16/19 06:20 - Constitutional Appears: No Acute Distress - Head Exam Head Exam: NORMAL INSPECTION - Eye Exam Eye Exam: PERRL - ENT Exam ENT Exam: Normal Exam - Neck Exam Neck Exam: Normal Inspection - Respiratory Exam Respiratory Exam: NORMAL BREATHING PATTERN - Cardiovascular Exam Cardiovascular Exam: Tachycardia - GI/Abdominal Exam GI & Abdominal Exam: Soft - Extremities Exam Additional comments: R leg 2+ non pitting edema , R hip dressing and dry,neuromuscular distal status good. - Back Exam Back Exam: NORMAL INSPECTION - Neurological Exam Neurological Exam: Alert, CN II-XII Intact, Oriented x3. absent: Motor Sensory Deficit - Psychiatric Exam Psychiatric exam: Normal Affect, Normal Mood - Skin Skin Exam: Warm Assessment and Plan (1) Fracture, intertrochanteric, right femur Status: Acute (2) S/P ORIF (open reduction internal fixation) fracture Status: Acute (3) Pain in right hip Status: Acute (4) Pulmonary embolism Status: Acute (5) Status post fall Status: Acute (6) Anemia Status: Acute (7) Tachycardia Status: Acute - Assessment and Plan (Free Text) Plan: Continue Percocet and rest of T.
[2019-02-17] MEDS: Docusate-Senna 50 mg-8.6 mg Tab PO SCH (21:27)
[2019-02-18] MEDS: oxyCODONE 5 mg Immediate Release Tab PO PRN ×2 (07:59→17:00)
[2019-02-18] MEDS: Enoxaparin 40 mg Syringe SC SCH (09:38)
[2019-02-18] MEDS: Cholecalciferol 1,000 INTLU TAB PO SCH (09:39)
[2019-02-18] MEDS: Multivitamin With Minerals Tab PO SCH (09:39)
[2019-02-18] MEDS: Pantoprazole 20 mg EC Tab PO SCH (09:39)
[2019-02-18] MEDS: oxyCODONE 10 mg ER Tab (oxyCONTIN) PO SCH ×2 (09:40→21:42)
--- NOTE | 2019-02-18 09:54 | CP.PCM.PN ---
Subjective - Date & Time of Evaluation Date of Evaluation: 02/18/19 Time of Evaluation: 09:52 - Subjective Subjective: Sneha Bains, born 1935 who has been admitted to [address] [facility]CU following a mechanical fall with right hip fracture and underwent ORIF. Right leg swelling and US was performed and was negative for a DVT. Having right knee pain and significant constipation. Daughter is concerned. She was previously independent in care and ambulation Objective - Vital Signs/Intake and Output Vital Signs (last 24 hours): Temp Pulse Resp BP Pulse Ox 98.3 F 100 H 20 133/73 96 02/18/19 08:50 02/18/19 08:50 02/18/19 08:50 02/18/19 08:50 02/18/19 08:50 - Medications Medications: Current Medications Acetaminophen (Tylenol 325mg Tab) 650 mg PO Q6 PRN PRN Reason: Pain, moderate (4-7) Calcium Carbonate (Oscal) 500 mg PO DAILY [facility] Last Admin: 02/18/19 09:39 Dose: 500 mg Cholecalciferol (Vitamin D) 4,000 intlu PO DAILY [facility] Last Admin: 02/18/19 09:39 Dose: 4,000 intlu Docusate Sodium (Colace) 100 mg PO BID [facility] Last Admin: 02/18/19 09:38 Dose: 100 mg Enoxaparin Sodium (Lovenox) 40 mg SC DAILY [facility]; Protocol Last Admin: 02/18/19 09:38 Dose: 40 mg Ferrous Sulfate (Feosol) 325 mg PO BIDWM [facility] Last Admin: 02/18/19 09:38 Dose: 325 mg Folic Acid (Folic Acid) 1 mg PO DAILY [facility] Last Admin: 02/18/19 09:38 Dose: 1 mg Magnesium Hydroxide (Milk Of Magnesia) 30 ml PO DAILY PRN PRN Reason: Constipation Multivitamins/Minerals (Therapeutic-M Tab) 1 tab PO DAILY [facility] Last Admin: 02/18/19 09:39 Dose: 1 tab Oxycodone HCl (Oxycodone Immediate Release Tab) 5 mg PO Q6 PRN PRN Reason: 7-09/06 pain Last Admin: 02/18/19 07:59 Dose: 5 mg Oxycodone HCl (Oxycontin Extended Release Tab) 10 mg PO Q12 [facility] Stop: 02/21/19 09:31 Last Admin: 02/18/19 09:40 Dose: 10 mg Pantoprazole Sodium (Protonix Ec Tab) 20 mg PO DAILY [facility] Last Admin: 02/18/19 09:39 Dose: 20 mg Senna/Docusate Sodium (Senokot S 50 Mg-8.6 Mg) 2 tab PO HS [facility] Last Admin: 02/17/19 21:27 Dose: 2 tab Sodium Phosphate (Fleet Enema) 135 ml MO ONCE ONE Stop: 02/18/19 09:47 Tramadol HCl (Ultram) 50 mg PO Q6 PRN PRN Reason: 4-6/10 pain Last Admin: 02/15/19 12:31 Dose: 50 mg - Labs Labs: 02/16/19 06:20 02/16/19 06:20 PT 11.7 Seconds (9.8-13.1) 02/16/19 06:20 INR 1.0 02/16/19 06:20 - Constitutional Appears: Non-toxic (uncomfortable) - Head Exam Head Exam: ATRAUMATIC, NORMAL INSPECTION, NORMOCEPHALIC - Eye Exam Eye Exam: EOMI - ENT Exam ENT Exam: Mucous Membranes Moist - Respiratory Exam Respiratory Exam: NORMAL BREATHING PATTERN - GI/Abdominal Exam GI & Abdominal Exam: Distended. absent: Rigid - Neurological Exam Neurological Exam: Alert, Awake, CN II-XII Intact, Oriented x3 - Skin Skin Exam: Warm (+ right knee effusion) Assessment and Plan - Assessment and Plan (Free Text) Assessment: PT/OT to continue to help increase functional independence Pain: will get an x-ray of the right knee. Consider arthrocentesis Vascular: no evidence of DVT, doppler negative GI: + constipation. Will give fleets, discussed with family Patient continues to be an excellent TCU rehabilitation candidate and will have continued focused PT, OT and recreational therapy to help facilitate a safe and appropriate d/c plan
[2019-02-18] MEDS: Docusate-Senna 50 mg-8.6 mg Tab PO SCH (21:42)
--- NOTE | 2019-02-18 23:27 | CP.PCM.PN ---
Subjective - Date & Time of Evaluation Date of Evaluation: 02/18/19 Time of Evaluation: 10:00 - Subjective Subjective: R Hip, R knee pain, constipation Objective - Vital Signs/Intake and Output Vital Signs (last 24 hours): Temp Pulse Resp BP Pulse Ox 98.2 F 100 H 20 111/66 96 02/18/19 21:34 02/18/19 21:34 02/18/19 21:34 02/18/19 21:34 02/18/19 21:34 - Medications Medications: Current Medications Acetaminophen (Tylenol 325mg Tab) 650 mg PO Q6 PRN PRN Reason: Pain, moderate (4-7) Calcium Carbonate (Oscal) 500 mg PO DAILY [facility] Last Admin: 02/18/19 09:39 Dose: 500 mg Cholecalciferol (Vitamin D) 4,000 intlu PO DAILY [facility] Last Admin: 02/18/19 09:39 Dose: 4,000 intlu Docusate Sodium (Colace) 100 mg PO BID [facility] Last Admin: 02/18/19 16:58 Dose: 100 mg Enoxaparin Sodium (Lovenox) 40 mg SC DAILY [facility]; Protocol Last Admin: 02/18/19 09:38 Dose: 40 mg Ferrous Sulfate (Feosol) 325 mg PO BIDWM [facility] Last Admin: 02/18/19 16:57 Dose: 325 mg Folic Acid (Folic Acid) 1 mg PO DAILY [facility] Last Admin: 02/18/19 09:38 Dose: 1 mg Magnesium Hydroxide (Milk Of Magnesia) 30 ml PO DAILY PRN PRN Reason: Constipation Multivitamins/Minerals (Therapeutic-M Tab) 1 tab PO DAILY [facility] Last Admin: 02/18/19 09:39 Dose: 1 tab Oxycodone HCl (Oxycodone Immediate Release Tab) 5 mg PO Q6 PRN PRN Reason: 7-10/ pain Last Admin: 02/18/19 17:00 Dose: 5 mg Oxycodone HCl (Oxycontin Extended Release Tab) 10 mg PO Q12 [facility] Stop: 02/21/19 09:31 Last Admin: 02/18/19 21:42 Dose: 10 mg Pantoprazole Sodium (Protonix Ec Tab) 20 mg PO DAILY [facility] Last Admin: 02/18/19 09:39 Dose: 20 mg Senna/Docusate Sodium (Senokot S 50 Mg-8.6 Mg) 2 tab PO HS [facility] Last Admin: 02/18/19 21:42 Dose: 2 tab Tramadol HCl (Ultram) 50 mg PO Q6 PRN PRN Reason: 4-05/07 pain Last Admin: 02/15/19 12:31 Dose: 50 mg - Labs Labs: 02/16/19 06:20 02/16/19 06:20 PT 11.7 Seconds (9.8-13.1) 02/16/19 06:20 INR 1.0 02/16/19 06:20 - Constitutional Appears: No Acute Distress - Head Exam Head Exam: NORMAL INSPECTION - Eye Exam Eye Exam: PERRL - ENT Exam ENT Exam: Normal Exam - Neck Exam Neck Exam: Normal Inspection - Respiratory Exam Respiratory Exam: Clear to Ausculation Bilateral - Cardiovascular Exam Cardiovascular Exam: REGULAR RHYTHM - GI/Abdominal Exam GI & Abdominal Exam: Soft, Normal Bowel Sounds - Extremities Exam Extremities Exam: Tenderness (R Hip, surgical incision healing well, R knee tenderness, effusion R knee) - Back Exam Back Exam: NORMAL INSPECTION - Neurological Exam Neurological Exam: Alert, CN II-XII Intact, Oriented x3. absent: Motor Sensory Deficit - Psychiatric Exam Psychiatric exam: Anxious - Skin Skin Exam: Warm Assessment and Plan (1) Fracture, intertrochanteric, right femur Status: Acute (2) S/P ORIF (open reduction internal fixation) fracture Status: Acute (3) Pain in right hip Status: Acute (4) Pulmonary embolism Status: Acute (5) Status post fall Status: Acute (6) Anemia Status: Acute (7) Tachycardia Status: Acute (8) Right knee pain Status: Acute - Assessment and Plan (Free Text) Plan: continue Oxycodone, Oxycontin, Lovenox, f/u X ray R knee, to have steroid injection R knee by Orthopedic renewable energy consultant, JERALD Zamora and rest of Tx
[2019-02-19] MEDS: Enoxaparin 40 mg Syringe SC SCH (08:34)
[2019-02-19] MEDS: Cholecalciferol 1,000 INTLU TAB PO SCH (08:35)
[2019-02-19] MEDS: Pantoprazole 20 mg EC Tab PO SCH (08:35)
[2019-02-19] MEDS: Multivitamin With Minerals Tab PO SCH (08:35)
[2019-02-19] MEDS: oxyCODONE 10 mg ER Tab (oxyCONTIN) PO SCH ×2 (08:37→21:46)
[2019-02-19] MEDS: oxyCODONE 5 mg Immediate Release Tab PO PRN (09:45)
--- NOTE | 2019-02-19 09:51 | RAD ---
Date of service: 02/18/2019 PROCEDURE: Right Knee Radiographs. HISTORY: right knee pain COMPARISON: None. FINDINGS: BONES: No fracture. Femoral medullary cesar. JOINTS: Medial and lateral compartment chondrocalcinosis. No articular erosion. JOINT EFFUSION: None. OTHER FINDINGS: None. IMPRESSION: No acute fracture.
--- NOTE | 2019-02-19 12:54 | CP.PCM.PN ---
Subjective - Date & Time of Evaluation Date of Evaluation: 02/19/19 Time of Evaluation: 12:52 - Subjective Subjective: Patient complaining of leg and knee pain. Denies CP/SOB/dizziness. Objective - Vital Signs/Intake and Output Vital Signs (last 24 hours): Temp Pulse Resp BP Pulse Ox 97.7 F 109 H 20 127/83 95 02/19/19 08:49 02/19/19 10:45 02/19/19 08:49 02/19/19 08:49 02/19/19 10:45 - Medications Medications: Current Medications Acetaminophen (Tylenol 325mg Tab) 650 mg PO Q6 PRN PRN Reason: Pain, moderate (4-7) Calcium Carbonate (Oscal) 500 mg PO DAILY [facility] Last Admin: 02/19/19 08:34 Dose: 500 mg Cholecalciferol (Vitamin D) 4,000 intlu PO DAILY [facility] Last Admin: 02/19/19 08:35 Dose: 4,000 intlu Docusate Sodium (Colace) 100 mg PO BID [facility] Last Admin: 02/19/19 08:33 Dose: 100 mg Enoxaparin Sodium (Lovenox) 40 mg SC DAILY [facility]; Protocol Last Admin: 02/19/19 08:34 Dose: 40 mg Ferrous Sulfate (Feosol) 325 mg PO BIDWM [facility] Last Admin: 02/19/19 08:33 Dose: 325 mg Folic Acid (Folic Acid) 1 mg PO DAILY [facility] Last Admin: 02/19/19 08:34 Dose: 1 mg Magnesium Hydroxide (Milk Of Magnesia) 30 ml PO DAILY PRN PRN Reason: Constipation Multivitamins/Minerals (Therapeutic-M Tab) 1 tab PO DAILY [facility] Last Admin: 02/19/19 08:35 Dose: 1 tab Oxycodone HCl (Oxycodone Immediate Release Tab) 5 mg PO Q6 PRN PRN Reason: 7-09/06 pain Last Admin: 02/19/19 09:45 Dose: 5 mg Oxycodone HCl (Oxycontin Extended Release Tab) 10 mg PO Q12 [facility] Stop: 02/21/19 09:31 Last Admin: 02/19/19 08:37 Dose: 10 mg Pantoprazole Sodium (Protonix Ec Tab) 20 mg PO DAILY [facility] Last Admin: 02/19/19 08:35 Dose: 20 mg Senna/Docusate Sodium (Senokot S 50 Mg-8.6 Mg) 2 tab PO HS [facility] Last Admin: 02/18/19 21:42 Dose: 2 tab Tramadol HCl (Ultram) 50 mg PO Q6 PRN PRN Reason: 4-05/07 pain Last Admin: 02/15/19 12:31 Dose: 50 mg - Labs Labs: 02/16/19 06:20 02/16/19 06:20 PT 11.7 Seconds (9.8-13.1) 02/16/19 06:20 INR 1.0 02/16/19 06:20 - Extremities Exam Additional comments: Right hip: ;dressing changed. Incisions dry/intact/no erythema. Calves soft NT neg homans +DP/PT pulses sensation intact, thigh swelling improving patient complaining of severe pain with dressing changes. Noted distal femur tenderness > knee tenderness. Likely due to cesar/distal locking screw Assessment and Plan (1) Fracture, intertrochanteric, right femur Assessment & Plan: POD #10 s/p long IM nail PT/OT knee xrays reviewed, good post operative position, moderate DJD and chondrocalcinosis of knee, no effusion ortho stable VTE proph d/w Dr. Marroquin, agrees with abvoe Status: Acute (2) Vitamin D deficiency Status: Acute (3) Acute blood loss anemia Status: Acute
--- NOTE | 2019-02-19 15:34 | CP.PCM.PN ---
Subjective - Date & Time of Evaluation Date of Evaluation: 02/19/19 Time of Evaluation: 13:50 - Subjective Subjective: F/U Fx R Hip Pain in R hip and R knee, Pt able to walk with a walker with no bearing weight over the RLE short distances and doing well with PT Objective - Vital Signs/Intake and Output Vital Signs (last 24 hours): Temp Pulse Resp BP Pulse Ox 97.7 F 109 H 20 127/83 95 02/19/19 08:49 02/19/19 10:45 02/19/19 08:49 02/19/19 08:49 02/19/19 10:45 - Medications Medications: Current Medications Acetaminophen (Tylenol 325mg Tab) 650 mg PO Q6 PRN PRN Reason: Pain, moderate (4-7) Calcium Carbonate (Oscal) 500 mg PO DAILY [facility] Last Admin: 02/19/19 08:34 Dose: 500 mg Cholecalciferol (Vitamin D) 4,000 intlu PO DAILY [facility] Last Admin: 02/19/19 08:35 Dose: 4,000 intlu Docusate Sodium (Colace) 100 mg PO BID [facility] Last Admin: 02/19/19 08:33 Dose: 100 mg Enoxaparin Sodium (Lovenox) 40 mg SC DAILY [facility]; Protocol Last Admin: 02/19/19 08:34 Dose: 40 mg Ferrous Sulfate (Feosol) 325 mg PO BIDWM [facility] Last Admin: 02/19/19 08:33 Dose: 325 mg Folic Acid (Folic Acid) 1 mg PO DAILY [facility] Last Admin: 02/19/19 08:34 Dose: 1 mg Magnesium Hydroxide (Milk Of Magnesia) 30 ml PO DAILY PRN PRN Reason: Constipation Multivitamins/Minerals (Therapeutic-M Tab) 1 tab PO DAILY [facility] Last Admin: 02/19/19 08:35 Dose: 1 tab Oxycodone HCl (Oxycodone Immediate Release Tab) 5 mg PO Q6 PRN PRN Reason: 7-10 pain Last Admin: 02/19/19 09:45 Dose: 5 mg Oxycodone HCl (Oxycontin Extended Release Tab) 10 mg PO Q12 [facility] Stop: 02/21/19 09:31 Last Admin: 02/19/19 08:37 Dose: 10 mg Pantoprazole Sodium (Protonix Ec Tab) 20 mg PO DAILY [facility] Last Admin: 02/19/19 08:35 Dose: 20 mg Senna/Docusate Sodium (Senokot S 50 Mg-8.6 Mg) 2 tab PO HS [facility] Last Admin: 02/18/19 21:42 Dose: 2 tab Tramadol HCl (Ultram) 50 mg PO Q6 PRN PRN Reason: 4-6/10 pain Last Admin: 02/19/19 12:58 Dose: 50 mg - Labs Labs: 02/16/19 06:20 02/16/19 06:20 PT 11.7 Seconds (9.8-13.1) 02/16/19 06:20 INR 1.0 02/16/19 06:20 - Constitutional Appears: No Acute Distress - Head Exam Head Exam: NORMAL INSPECTION - Eye Exam Eye Exam: PERRL - ENT Exam ENT Exam: Normal Exam - Neck Exam Neck Exam: Normal Inspection - Respiratory Exam Respiratory Exam: NORMAL BREATHING PATTERN - Cardiovascular Exam Cardiovascular Exam: REGULAR RHYTHM - GI/Abdominal Exam GI & Abdominal Exam: Soft, Normal Bowel Sounds - Extremities Exam Extremities Exam: Tenderness (R hip, surgical incision healing well) Additional comments: 2+ non pitting edema R leg, R Hip with roxana dressing. - Back Exam Back Exam: NORMAL INSPECTION - Neurological Exam Neurological Exam: Alert, CN II-XII Intact, Oriented x3. absent: Motor Sensory Deficit - Psychiatric Exam Psychiatric exam: Normal Affect, Normal Mood - Skin Skin Exam: Warm Assessment and Plan (1) Fracture, intertrochanteric, right femur Status: Acute (2) S/P ORIF (open reduction internal fixation) fracture Status: Acute (3) Pain in right hip Status: Acute (4) Pulmonary embolism Status: Acute (5) Status post fall Status: Acute (6) Anemia Status: Acute (7) Tachycardia Status: Acute (8) Right knee pain Status: Acute - Assessment and Plan (Free Text) Plan: Continue Oxycontin and rest of Tx. Pt to have Steroid injection R knee by Orthopedic/Pain Management.
[2019-02-19] MEDS ORDERED: Triamcinolone Acetonide 40 mg/mL Inj IAA ONE (15:51)
[2019-02-19] MEDS ORDERED: Lidocaine 1% (10 ml) Inj IAA ONE (15:51)
[2019-02-19] MEDS ORDERED: Dexamethasone 4 mg/1 ml IAA ONE (15:51)
--- NOTE | 2019-02-19 17:24 | CP.PCM.PN ---
Subjective - Date & Time of Evaluation Date of Evaluation: 02/19/19 Time of Evaluation: 17:22 - Subjective Subjective: Sneha Bains, born 1935 who has been admitted to [address] [facility] following a mechanical fall with right hip fracture and underwent ORIF. Right leg swelling and US was performed and was negative for a DVT. Having right knee pain and significant constipation. Daughter is concerned. She was previously independent in care and ambulation X-ray was done and showed some chondrocalcinosis. She has agreed to proceed with an injection (see sep. note) Objective - Vital Signs/Intake and Output Vital Signs (last 24 hours): Temp Pulse Resp BP Pulse Ox 98.4 F 109 H 20 123/64 94 L 02/19/19 16:59 02/19/19 16:59 02/19/19 16:59 02/19/19 16:59 02/19/19 16:59 - Medications Medications: Current Medications Acetaminophen (Tylenol 325mg Tab) 650 mg PO Q6 PRN PRN Reason: Pain, moderate (4-7) Calcium Carbonate (Oscal) 500 mg PO DAILY [facility] Last Admin: 02/19/19 08:34 Dose: 500 mg Cholecalciferol (Vitamin D) 4,000 intlu PO DAILY [facility] Last Admin: 02/19/19 08:35 Dose: 4,000 intlu Docusate Sodium (Colace) 100 mg PO BID [facility] Last Admin: 02/19/19 16:59 Dose: 100 mg Enoxaparin Sodium (Lovenox) 40 mg SC DAILY [facility]; Protocol Last Admin: 02/19/19 08:34 Dose: 40 mg Ferrous Sulfate (Feosol) 325 mg PO BIDWM [facility] Last Admin: 02/19/19 16:59 Dose: 325 mg Folic Acid (Folic Acid) 1 mg PO DAILY [facility] Last Admin: 02/19/19 08:34 Dose: 1 mg Magnesium Hydroxide (Milk Of Magnesia) 30 ml PO DAILY PRN PRN Reason: Constipation Multivitamins/Minerals (Therapeutic-M Tab) 1 tab PO DAILY [facility] Last Admin: 02/19/19 08:35 Dose: 1 tab Oxycodone HCl (Oxycodone Immediate Release Tab) 5 mg PO Q6 PRN PRN Reason: 7-10/10 pain Last Admin: 02/19/19 09:45 Dose: 5 mg Oxycodone HCl (Oxycontin Extended Release Tab) 10 mg PO Q12 [facility] Stop: 02/21/19 09:31 Last Admin: 02/19/19 08:37 Dose: 10 mg Pantoprazole Sodium (Protonix Ec Tab) 20 mg PO DAILY [facility] Last Admin: 02/19/19 08:35 Dose: 20 mg Senna/Docusate Sodium (Senokot S 50 Mg-8.6 Mg) 2 tab PO HS [facility] Last Admin: 02/18/19 21:42 Dose: 2 tab Tramadol HCl (Ultram) 50 mg PO Q6 PRN PRN Reason: 4-6 pain Last Admin: 02/19/19 12:58 Dose: 50 mg - Labs Labs: 02/16/19 06:20 02/16/19 06:20 PT 11.7 Seconds (9.8-13.1) 02/16/19 06:20 INR 1.0 02/16/19 06:20 - Constitutional Appears: Non-toxic, No Acute Distress - Head Exam Head Exam: ATRAUMATIC, NORMAL INSPECTION, NORMOCEPHALIC - Eye Exam Eye Exam: EOMI - ENT Exam ENT Exam: Mucous Membranes Moist - Respiratory Exam Respiratory Exam: NORMAL BREATHING PATTERN - GI/Abdominal Exam GI & Abdominal Exam: absent: Distended, Firm - Neurological Exam Neurological Exam: Alert, Awake, CN II-XII Intact, Oriented x3 - Psychiatric Exam Psychiatric exam: Normal Affect, Normal Mood - Skin Skin Exam: Warm Assessment and Plan - Assessment and Plan (Free Text) Assessment: 83 year old with right femur fracture s/p ORIF right knee pain performed intra-articular injection removed 14cc clear class I fluid PT/OT to help increase functional independence
--- NOTE | 2019-02-19 17:25 | PCM.PROC ---
Procedures Attestation:: I certify that I have explained the specified Operation(s) or Procedure(s), risks, benefits and reasonable alternatives to the Patient and/or other person responsible. The opportunity was given to ask questions and all questions answered - Joint Aspiration/Injection Joint #1 Consent Obtained: Verbal Consent Time Out Performed: Yes Side of Body: Right Joint Aspirated: Knee Ultrasound Guidance Used: No Skin Prep: Chlorprep Needle Size Used: 22 G Fluid Clarity: Clear Total Fluid Removed (mls): 14 Medication Injected: Triamcinolone Acetate, Methylprednisolone, Lidocaine Patient Tolorated Procedure: Well Complications: None
[2019-02-19] MEDS: Docusate-Senna 50 mg-8.6 mg Tab PO SCH (21:45)
[2019-02-20 01:49] LABS: SQUAMOUS EPITHIAL 1 /hpf (0-5); URINE BACTERIA OCC (<OCC); URINE BILIRUBIN NEGATIVE (NEGATIVE); URINE BLOOD SMALL (NEGATIVE); URINE CLARITY CLOUDY (Clear); URINE COLOR AMBER (YELLOW); URINE GLUCOSE (UA) NEG (NEGATIVE); URINE LEUKOCYTE ESTERASE NEG Leu/uL (Negative); URINE PROTEIN NEGATIVE (NEGATIVE)
[2019-02-20] MEDS: oxyCODONE 10 mg ER Tab (oxyCONTIN) PO SCH ×2 (09:27→21:46)
[2019-02-20] MEDS: Pantoprazole 20 mg EC Tab PO SCH (09:29)
[2019-02-20] MEDS: Multivitamin With Minerals Tab PO SCH (09:29)
[2019-02-20] MEDS: Cholecalciferol 1,000 INTLU TAB PO SCH (09:29)
[2019-02-20] MEDS: Enoxaparin 40 mg Syringe SC SCH (12:37)
--- NOTE | 2019-02-20 12:50 | CP.PCM.PN ---
Subjective - Date & Time of Evaluation Date of Evaluation: 02/20/19 Time of Evaluation: 12:40 - Subjective Subjective: F/U Fx R, Hip s/p ORIF Pt had R knee injection done yesterday by Train Caller, Dr Vergara. Pt is seating in a chair, feeling better, minimal pain R hip and R knee, doing therapy today, walked from bed to the commode and back to seat with a walker Objective - Vital Signs/Intake and Output Vital Signs (last 24 hours): Temp Pulse Resp BP Pulse Ox 98.2 F 92 H 20 116/62 96 02/20/19 08:22 02/20/19 08:22 02/20/19 08:22 02/20/19 08:22 02/20/19 08:22 - Medications Medications: Current Medications Acetaminophen (Tylenol 325mg Tab) 650 mg PO Q6 PRN PRN Reason: Pain, moderate (4-7) Calcium Carbonate (Oscal) 500 mg PO DAILY [facility] Last Admin: 02/20/19 09:28 Dose: 500 mg Cholecalciferol (Vitamin D) 4,000 intlu PO DAILY [facility] Last Admin: 02/20/19 09:29 Dose: 4,000 intlu Docusate Sodium (Colace) 100 mg PO BID [facility] Last Admin: 02/20/19 09:29 Dose: 100 mg Enoxaparin Sodium (Lovenox) 40 mg SC DAILY [facility]; Protocol Last Admin: 02/20/19 12:37 Dose: 40 mg Ferrous Sulfate (Feosol) 325 mg PO BIDWM [facility] Last Admin: 02/20/19 08:00 Dose: 325 mg Folic Acid (Folic Acid) 1 mg PO DAILY [facility] Last Admin: 02/20/19 09:28 Dose: 1 mg Magnesium Hydroxide (Milk Of Magnesia) 30 ml PO DAILY PRN PRN Reason: Constipation Multivitamins/Minerals (Therapeutic-M Tab) 1 tab PO DAILY [facility] Last Admin: 02/20/19 09:29 Dose: 1 tab Oxycodone HCl (Oxycodone Immediate Release Tab) 5 mg PO Q6 PRN PRN Reason: 7-10/10 pain Last Admin: 02/19/19 09:45 Dose: 5 mg Oxycodone HCl (Oxycontin Extended Release Tab) 10 mg PO Q12 [facility] Stop: 02/21/19 09:31 Last Admin: 02/20/19 09:27 Dose: 10 mg Pantoprazole Sodium (Protonix Ec Tab) 20 mg PO DAILY [facility] Last Admin: 02/20/19 09:29 Dose: 20 mg Senna/Docusate Sodium (Senokot S 50 Mg-8.6 Mg) 2 tab PO HS [facility] Last Admin: 02/19/19 21:45 Dose: 2 tab Tramadol HCl (Ultram) 50 mg PO Q6 PRN PRN Reason: 4-6/10 pain Last Admin: 02/20/19 10:33 Dose: 50 mg - Labs Labs: 02/16/19 06:20 02/16/19 06:20 PT 11.7 Seconds (9.8-13.1) 02/16/19 06:20 INR 1.0 02/16/19 06:20 - Constitutional Appears: No Acute Distress - Head Exam Head Exam: NORMAL INSPECTION - Eye Exam Eye Exam: PERRL - ENT Exam ENT Exam: Normal Exam - Neck Exam Neck Exam: Normal Inspection - Respiratory Exam Respiratory Exam: NORMAL BREATHING PATTERN - Cardiovascular Exam Cardiovascular Exam: REGULAR RHYTHM - GI/Abdominal Exam GI & Abdominal Exam: Soft, Normal Bowel Sounds - Extremities Exam Additional comments: Dressing R hip, R knee minimal swelling - Back Exam Back Exam: NORMAL INSPECTION - Neurological Exam Neurological Exam: Alert, CN II-XII Intact, Oriented x3. absent: Motor Sensory Deficit - Psychiatric Exam Psychiatric exam: Normal Affect, Normal Mood - Skin Skin Exam: Warm Assessment and Plan (1) Fracture, intertrochanteric, right femur Status: Acute (2) S/P ORIF (open reduction internal fixation) fracture Status: Acute (3) Pain in right hip Status: Acute (4) Pulmonary embolism Status: Acute (5) Status post fall Status: Acute (6) Anemia Status: Acute (7) Tachycardia Status: Acute (8) Right knee pain Status: Acute - Assessment and Plan (Free Text) Plan: Continue Oxycontin, Ultran, Lovenox and rst of Tx.
--- NOTE | 2019-02-20 14:13 | CP.PCM.PN ---
Subjective - Date & Time of Evaluation Date of Evaluation: 02/20/19 Time of Evaluation: 11:00 - Subjective Subjective: Patient seen and examined at bedside. Daughter at bedside. Pain is well controlled. Drainage has ceased. No other complaints. Objective - Vital Signs/Intake and Output Vital Signs (last 24 hours): Temp Pulse Resp BP Pulse Ox 98.2 F 92 H 20 116/62 96 02/20/19 08:22 02/20/19 08:22 02/20/19 08:22 02/20/19 08:22 02/20/19 08:22 - Medications Medications: Current Medications Acetaminophen (Tylenol 325mg Tab) 650 mg PO Q6 PRN PRN Reason: Pain, moderate (4-7) Calcium Carbonate (Oscal) 500 mg PO DAILY [facility] Last Admin: 02/20/19 09:28 Dose: 500 mg Cholecalciferol (Vitamin D) 4,000 intlu PO DAILY [facility] Last Admin: 02/20/19 09:29 Dose: 4,000 intlu Docusate Sodium (Colace) 100 mg PO BID [facility] Last Admin: 02/20/19 09:29 Dose: 100 mg Enoxaparin Sodium (Lovenox) 40 mg SC DAILY [facility]; Protocol Last Admin: 02/20/19 12:37 Dose: 40 mg Ferrous Sulfate (Feosol) 325 mg PO BIDWM [facility] Last Admin: 02/20/19 08:00 Dose: 325 mg Folic Acid (Folic Acid) 1 mg PO DAILY [facility] Last Admin: 02/20/19 09:28 Dose: 1 mg Magnesium Hydroxide (Milk Of Magnesia) 30 ml PO DAILY PRN PRN Reason: Constipation Multivitamins/Minerals (Therapeutic-M Tab) 1 tab PO DAILY [facility] Last Admin: 02/20/19 09:29 Dose: 1 tab Oxycodone HCl (Oxycodone Immediate Release Tab) 5 mg PO Q6 PRN PRN Reason: 7-09/06 pain Last Admin: 02/19/19 09:45 Dose: 5 mg Oxycodone HCl (Oxycontin Extended Release Tab) 10 mg PO Q12 [facility] Stop: 02/21/19 09:31 Last Admin: 02/20/19 09:27 Dose: 10 mg Pantoprazole Sodium (Protonix Ec Tab) 20 mg PO DAILY [facility] Last Admin: 02/20/19 09:29 Dose: 20 mg Senna/Docusate Sodium (Senokot S 50 Mg-8.6 Mg) 2 tab PO HS [facility] Last Admin: 02/19/19 21:45 Dose: 2 tab Tramadol HCl (Ultram) 50 mg PO Q6 PRN PRN Reason: 4-6/10 pain Last Admin: 02/20/19 10:33 Dose: 50 mg - Labs Labs: 02/16/19 06:20 02/16/19 06:20 PT 11.7 Seconds (9.8-13.1) 02/16/19 06:20 INR 1.0 02/16/19 06:20 - Extremities Exam Additional comments: RLE: Dressings CDI moderate thigh swelling improved sensation intact SP/DP/TN motor intact EHL/FHL/TA/G pedal pulse intact calves soft NT Assessment and Plan (1) Fracture, intertrochanteric, right femur Assessment & Plan: POD#11 s/p R femur ORIF w/ IM nail PT/OT DVT ppx lovenox 40 mg daily orthopedically stable above d/w Dr. Rodríguez in agreement Status: Acute
--- NOTE | 2019-02-20 18:21 | CP.PCM.PN ---
Subjective - Date & Time of Evaluation Date of Evaluation: 02/20/19 Time of Evaluation: 18:20 - Subjective Subjective: Patient seen in the room very happy almost no pain following the right knee injection wants to know when another one will be necessary I told her that hopefully this will not be necessary in the future she and daughter were very appreciative. continue current care Objective - Vital Signs/Intake and Output Vital Signs (last 24 hours): Temp Pulse Resp BP Pulse Ox 98.1 F 86 20 103/60 95 02/20/19 16:52 02/20/19 16:52 02/20/19 16:52 02/20/19 16:52 02/20/19 16:52 - Medications Medications: Current Medications Acetaminophen (Tylenol 325mg Tab) 650 mg PO Q6 PRN PRN Reason: Pain, moderate (4-7) Calcium Carbonate (Oscal) 500 mg PO DAILY [facility] Last Admin: 02/20/19 09:28 Dose: 500 mg Cholecalciferol (Vitamin D) 4,000 intlu PO DAILY [facility] Last Admin: 02/20/19 09:29 Dose: 4,000 intlu Docusate Sodium (Colace) 100 mg PO BID [facility] Last Admin: 02/20/19 16:47 Dose: 100 mg Enoxaparin Sodium (Lovenox) 40 mg SC DAILY [facility]; Protocol Last Admin: 02/20/19 12:37 Dose: 40 mg Ferrous Sulfate (Feosol) 325 mg PO BIDWM [facility] Last Admin: 02/20/19 16:47 Dose: 325 mg Folic Acid (Folic Acid) 1 mg PO DAILY [facility] Last Admin: 02/20/19 09:28 Dose: 1 mg Magnesium Hydroxide (Milk Of Magnesia) 30 ml PO DAILY PRN PRN Reason: Constipation Multivitamins/Minerals (Therapeutic-M Tab) 1 tab PO DAILY [facility] Last Admin: 02/20/19 09:29 Dose: 1 tab Oxycodone HCl (Oxycodone Immediate Release Tab) 5 mg PO Q6 PRN PRN Reason: 7-10/10 pain Last Admin: 02/19/19 09:45 Dose: 5 mg Oxycodone HCl (Oxycontin Extended Release Tab) 10 mg PO Q12 [facility] Stop: 02/21/19 09:31 Last Admin: 02/20/19 09:27 Dose: 10 mg Pantoprazole Sodium (Protonix Ec Tab) 20 mg PO DAILY [facility] Last Admin: 02/20/19 09:29 Dose: 20 mg Senna/Docusate Sodium (Senokot S 50 Mg-8.6 Mg) 2 tab PO HS [facility] Last Admin: 02/19/19 21:45 Dose: 2 tab Tramadol HCl (Ultram) 50 mg PO Q6 PRN PRN Reason: 4-6/ pain Last Admin: 02/20/19 10:33 Dose: 50 mg - Labs Labs: 02/16/19 06:20 02/16/19 06:20 PT 11.7 Seconds (9.8-13.1) 02/16/19 06:20 INR 1.0 02/16/19 06:20
[2019-02-20] MEDS: Docusate-Senna 50 mg-8.6 mg Tab PO SCH (21:47)
[2019-02-21] MEDS: Multivitamin With Minerals Tab PO SCH (08:51)
[2019-02-21] MEDS: Cholecalciferol 1,000 INTLU TAB PO SCH (08:51)
[2019-02-21] MEDS: Pantoprazole 20 mg EC Tab PO SCH (08:52)
[2019-02-21] MEDS: Enoxaparin 40 mg Syringe SC SCH (08:52)
[2019-02-21] MEDS: oxyCODONE 10 mg ER Tab (oxyCONTIN) PO SCH ×2 (08:54→22:12)
--- NOTE | 2019-02-21 12:11 | CP.PCM.PN ---
Subjective - Date & Time of Evaluation Date of Evaluation: 02/21/19 Time of Evaluation: 11:00 - Subjective Subjective: Patient seen and examined OOb to chair comfortable. Pain continues to improve. Tolerating PT well, able to ambulate 15 feet yesterday with RW. No other complaints. Objective - Vital Signs/Intake and Output Vital Signs (last 24 hours): Temp Pulse Resp BP Pulse Ox 97.8 F 96 H 20 126/80 97 02/21/19 08:20 02/21/19 08:20 02/21/19 08:20 02/21/19 08:20 02/21/19 08:20 - Medications Medications: Current Medications Acetaminophen (Tylenol 325mg Tab) 650 mg PO Q6 PRN PRN Reason: Pain, moderate (4-7) Calcium Carbonate (Oscal) 500 mg PO DAILY [facility] Last Admin: 02/21/19 08:51 Dose: 500 mg Cholecalciferol (Vitamin D) 4,000 intlu PO DAILY [facility] Last Admin: 02/21/19 08:51 Dose: 4,000 intlu Docusate Sodium (Colace) 100 mg PO BID [facility] Last Admin: 02/21/19 08:50 Dose: 100 mg Enoxaparin Sodium (Lovenox) 40 mg SC DAILY [facility]; Protocol Last Admin: 02/21/19 08:52 Dose: 40 mg Ferrous Sulfate (Feosol) 325 mg PO BIDWM [facility] Last Admin: 02/21/19 08:51 Dose: 325 mg Folic Acid (Folic Acid) 1 mg PO DAILY [facility] Last Admin: 02/21/19 08:52 Dose: 1 mg Magnesium Hydroxide (Milk Of Magnesia) 30 ml PO DAILY PRN PRN Reason: Constipation Multivitamins/Minerals (Therapeutic-M Tab) 1 tab PO DAILY [facility] Last Admin: 02/21/19 08:51 Dose: 1 tab Oxycodone HCl (Oxycodone Immediate Release Tab) 5 mg PO Q6 PRN PRN Reason: 7-09/06 pain Last Admin: 02/19/19 09:45 Dose: 5 mg Oxycodone HCl (Oxycontin Extended Release Tab) 10 mg PO Q12 [facility] Stop: 02/24/19 21:01 Pantoprazole Sodium (Protonix Ec Tab) 20 mg PO DAILY [facility] Last Admin: 02/21/19 08:52 Dose: 20 mg Senna/Docusate Sodium (Senokot S 50 Mg-8.6 Mg) 2 tab PO HS [facility] Last Admin: 02/20/19 21:47 Dose: 2 tab Tramadol HCl (Ultram) 50 mg PO Q6 PRN PRN Reason: 4-6 pain Last Admin: 02/20/19 10:33 Dose: 50 mg - Labs Labs: 02/16/19 06:20 02/16/19 06:20 PT 11.7 Seconds (9.8-13.1) 02/16/19 06:20 INR 1.0 02/16/19 06:20 - Extremities Exam Additional comments: RLE: Dressings CDI moderate thigh swelling improved sensation intact SP/DP/TN motor intact EHL/FHL/TA/G pedal pulse intact calves soft NT Assessment and Plan (1) Fracture, intertrochanteric, right femur Assessment & Plan: POD#12 s/p R femur ORIF w/ IM nail PT/OT advance to WBAT DVT ppx lovenox 40 mg daily orthopedically stable above d/w Dr. Rodríguez in agreement Status: Acute
--- NOTE | 2019-02-21 18:17 | CP.PCM.PN ---
Subjective - Date & Time of Evaluation Date of Evaluation: 02/21/19 Time of Evaluation: 11:00 - Subjective Subjective: F/U R Hip Fx, s/p ORIF Pt doing well with PT, ambulation in the lazar with the walker, R knee pain improved after injection, no pain R hip/R knee at rest. Objective - Vital Signs/Intake and Output Vital Signs (last 24 hours): Temp Pulse Resp BP Pulse Ox 98.1 F 116 H 20 117/76 96 02/21/19 17:02 02/21/19 17:34 02/21/19 17:02 02/21/19 17:34 02/21/19 17:34 - Medications Medications: Current Medications Acetaminophen (Tylenol 325mg Tab) 650 mg PO Q6 PRN PRN Reason: Pain, moderate (4-7) Calcium Carbonate (Oscal) 500 mg PO DAILY [facility] Last Admin: 02/21/19 08:51 Dose: 500 mg Cholecalciferol (Vitamin D) 4,000 intlu PO DAILY [facility] Last Admin: 02/21/19 08:51 Dose: 4,000 intlu Docusate Sodium (Colace) 100 mg PO BID [facility] Last Admin: 02/21/19 17:29 Dose: 100 mg Enoxaparin Sodium (Lovenox) 40 mg SC DAILY [facility]; Protocol Last Admin: 02/21/19 08:52 Dose: 40 mg Ferrous Sulfate (Feosol) 325 mg PO BIDWM [facility] Last Admin: 02/21/19 17:29 Dose: 325 mg Folic Acid (Folic Acid) 1 mg PO DAILY [facility] Last Admin: 02/21/19 08:52 Dose: 1 mg Magnesium Hydroxide (Milk Of Magnesia) 30 ml PO DAILY PRN PRN Reason: Constipation Multivitamins/Minerals (Therapeutic-M Tab) 1 tab PO DAILY [facility] Last Admin: 02/21/19 08:51 Dose: 1 tab Oxycodone HCl (Oxycodone Immediate Release Tab) 5 mg PO Q6 PRN PRN Reason: 7-09/06 pain Last Admin: 02/19/19 09:45 Dose: 5 mg Oxycodone HCl (Oxycontin Extended Release Tab) 10 mg PO Q12 [facility] Stop: 02/24/19 21:01 Pantoprazole Sodium (Protonix Ec Tab) 20 mg PO DAILY [facility] Last Admin: 02/21/19 08:52 Dose: 20 mg Senna/Docusate Sodium (Senokot S 50 Mg-8.6 Mg) 2 tab PO HS [facility] Last Admin: 02/20/19 21:47 Dose: 2 tab Tramadol HCl (Ultram) 50 mg PO Q6 PRN PRN Reason: 4-6/10 pain Last Admin: 02/21/19 14:16 Dose: 50 mg - Labs Labs: 02/16/19 06:20 02/16/19 06:20 PT 11.7 Seconds (9.8-13.1) 02/16/19 06:20 INR 1.0 02/16/19 06:20 - Constitutional Appears: No Acute Distress - Head Exam Head Exam: NORMAL INSPECTION - Eye Exam Eye Exam: PERRL - ENT Exam ENT Exam: Normal Exam - Neck Exam Neck Exam: Normal Inspection - Respiratory Exam Respiratory Exam: NORMAL BREATHING PATTERN - Cardiovascular Exam Cardiovascular Exam: REGULAR RHYTHM - GI/Abdominal Exam GI & Abdominal Exam: Soft, Normal Bowel Sounds - Extremities Exam Additional comments: Decreased swelling/effusion R knee, minimal tenderness R hip - Back Exam Back Exam: NORMAL INSPECTION - Neurological Exam Neurological Exam: Alert, CN II-XII Intact, Oriented x3. absent: Motor Sensory Deficit - Psychiatric Exam Psychiatric exam: Normal Affect, Normal Mood - Skin Skin Exam: Warm Assessment and Plan (1) Fracture, intertrochanteric, right femur Status: Acute (2) S/P ORIF (open reduction internal fixation) fracture Status: Acute (3) Pain in right hip Status: Acute (4) Pulmonary embolism Status: Acute (5) Status post fall Status: Acute (6) Anemia Status: Acute (7) Tachycardia Status: Acute (8) Right knee pain Status: Acute - Assessment and Plan (Free Text) Plan: Continue Lovenox, Ultran, Vit D, Iron, PT,OT
[2019-02-21] MEDS: Docusate-Senna 50 mg-8.6 mg Tab PO SCH (22:13)
--- NOTE | 2019-02-22 09:01 | CP.PCM.PN ---
Subjective - Date & Time of Evaluation Date of Evaluation: 02/22/19 Time of Evaluation: 07:30 - Subjective Subjective: Patient seen and examined at bedside comfortable. Daughter at bedside. Pain well controlled. Tolerating PT well, able to ambulate longer distance yesterday with RW. Objective - Vital Signs/Intake and Output Vital Signs (last 24 hours): Temp Pulse Resp BP Pulse Ox 98.7 F 102 H 20 127/70 98 02/22/19 07:37 02/22/19 07:37 02/22/19 07:37 02/22/19 07:37 02/22/19 07:37 - Medications Medications: Current Medications Acetaminophen (Tylenol 325mg Tab) 650 mg PO Q6 PRN PRN Reason: Pain, moderate (4-7) Calcium Carbonate (Oscal) 500 mg PO DAILY [facility] Last Admin: 02/21/19 08:51 Dose: 500 mg Cholecalciferol (Vitamin D) 4,000 intlu PO DAILY [facility] Last Admin: 02/21/19 08:51 Dose: 4,000 intlu Docusate Sodium (Colace) 100 mg PO BID [facility] Last Admin: 02/21/19 17:29 Dose: 100 mg Enoxaparin Sodium (Lovenox) 40 mg SC DAILY [facility]; Protocol Last Admin: 02/21/19 08:52 Dose: 40 mg Ferrous Sulfate (Feosol) 325 mg PO BIDWM [facility] Last Admin: 02/21/19 17:29 Dose: 325 mg Folic Acid (Folic Acid) 1 mg PO DAILY [facility] Last Admin: 02/21/19 08:52 Dose: 1 mg Magnesium Hydroxide (Milk Of Magnesia) 30 ml PO DAILY PRN PRN Reason: Constipation Multivitamins/Minerals (Therapeutic-M Tab) 1 tab PO DAILY [facility] Last Admin: 02/21/19 08:51 Dose: 1 tab Oxycodone HCl (Oxycodone Immediate Release Tab) 5 mg PO Q6 PRN PRN Reason: 7-09/06 pain Last Admin: 02/19/19 09:45 Dose: 5 mg Oxycodone HCl (Oxycontin Extended Release Tab) 10 mg PO Q12 [facility] Stop: 02/24/19 21:01 Last Admin: 02/21/19 22:12 Dose: 10 mg Pantoprazole Sodium (Protonix Ec Tab) 20 mg PO DAILY [facility] Last Admin: 02/21/19 08:52 Dose: 20 mg Senna/Docusate Sodium (Senokot S 50 Mg-8.6 Mg) 2 tab PO HS [facility] Last Admin: 02/21/19 22:13 Dose: 2 tab Tramadol HCl (Ultram) 50 mg PO Q6 PRN PRN Reason: 4-6/10 pain Last Admin: 02/21/19 14:16 Dose: 50 mg - Labs Labs: 02/16/19 06:20 02/16/19 06:20 PT 11.7 Seconds (9.8-13.1) 02/16/19 06:20 INR 1.0 02/16/19 06:20 - Extremities Exam Additional comments: RLE: Dressings CDI moderate thigh swelling improving sensation intact SP/DP/TN motor intact EHL/FHL/TA/G pedal pulse intact calves soft NT Assessment and Plan (1) Fracture, intertrochanteric, right femur Assessment & Plan: POD#13 s/p R femur ORIF w/ IM nail Dr. 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 Rodríguez in agreement Status: Acute
[2019-02-22] MEDS: Enoxaparin 40 mg Syringe SC SCH (09:06)
[2019-02-22] MEDS: Multivitamin With Minerals Tab PO SCH (09:06)
[2019-02-22] MEDS: Pantoprazole 20 mg EC Tab PO SCH (09:07)
[2019-02-22] MEDS: Cholecalciferol 1,000 INTLU TAB PO SCH (09:08)
[2019-02-22] MEDS: oxyCODONE 10 mg ER Tab (oxyCONTIN) PO SCH ×2 (09:10→21:17)
--- NOTE | 2019-02-22 15:01 | CP.PCM.PN ---
Subjective - Date & Time of Evaluation Date of Evaluation: 02/22/19 Time of Evaluation: 10:00 - Subjective Subjective: F/U s/p ORIF R Hp Pt with minimal R knee and R hip pain, has been working with Therapist Objective - Vital Signs/Intake and Output Vital Signs (last 24 hours): Temp Pulse Resp BP Pulse Ox 98.7 F 102 H 20 127/70 98 02/22/19 07:37 02/22/19 07:37 02/22/19 07:37 02/22/19 07:37 02/22/19 07:37 - Medications Medications: Current Medications Acetaminophen (Tylenol 325mg Tab) 650 mg PO Q6 PRN PRN Reason: Pain, moderate (4-7) Calcium Carbonate (Oscal) 500 mg PO DAILY [facility] Last Admin: 02/22/19 09:08 Dose: 500 mg Cholecalciferol (Vitamin D) 4,000 intlu PO DAILY [facility] Last Admin: 02/22/19 09:08 Dose: 4,000 intlu Docusate Sodium (Colace) 100 mg PO BID [facility] Last Admin: 02/22/19 09:03 Dose: 100 mg Enoxaparin Sodium (Lovenox) 40 mg SC DAILY [facility]; Protocol Last Admin: 02/22/19 09:06 Dose: 40 mg Ferrous Sulfate (Feosol) 325 mg PO BIDWM [facility] Last Admin: 02/22/19 09:04 Dose: 325 mg Folic Acid (Folic Acid) 1 mg PO DAILY [facility] Last Admin: 02/22/19 09:06 Dose: 1 mg Magnesium Hydroxide (Milk Of Magnesia) 30 ml PO DAILY PRN PRN Reason: Constipation Multivitamins/Minerals (Therapeutic-M Tab) 1 tab PO DAILY [facility] Last Admin: 02/22/19 09:06 Dose: 1 tab Oxycodone HCl (Oxycodone Immediate Release Tab) 5 mg PO Q6 PRN PRN Reason: 7-10 pain Last Admin: 02/19/19 09:45 Dose: 5 mg Oxycodone HCl (Oxycontin Extended Release Tab) 10 mg PO Q12 [facility] Stop: 02/24/19 21:01 Last Admin: 02/22/19 09:10 Dose: 10 mg Pantoprazole Sodium (Protonix Ec Tab) 20 mg PO DAILY [facility] Last Admin: 02/22/19 09:07 Dose: 20 mg Senna/Docusate Sodium (Senokot S 50 Mg-8.6 Mg) 2 tab PO HS [facility] Last Admin: 02/21/19 22:13 Dose: 2 tab Tramadol HCl (Ultram) 50 mg PO Q6 PRN PRN Reason: 4-6/10 pain Last Admin: 02/22/19 10:29 Dose: 50 mg - Labs Labs: 02/16/19 06:20 02/16/19 06:20 PT 11.7 Seconds (9.8-13.1) 02/16/19 06:20 INR 1.0 02/16/19 06:20 - Constitutional Appears: No Acute Distress - Head Exam Head Exam: NORMAL INSPECTION - Eye Exam Eye Exam: PERRL - ENT Exam ENT Exam: Normal Exam - Neck Exam Neck Exam: Normal Inspection - Respiratory Exam Respiratory Exam: NORMAL BREATHING PATTERN - Cardiovascular Exam Cardiovascular Exam: REGULAR RHYTHM - GI/Abdominal Exam GI & Abdominal Exam: Soft, Normal Bowel Sounds - Extremities Exam Additional comments: Dressing, swelling/effusion R knee, minimal tenderness R hip - Back Exam Back Exam: NORMAL INSPECTION - Neurological Exam Neurological Exam: Alert, CN II-XII Intact, Oriented x3. absent: Motor Sensory Deficit - Psychiatric Exam Psychiatric exam: Normal Mood - Skin Skin Exam: Warm Assessment and Plan (1) Fracture, intertrochanteric, right femur Status: Acute (2) S/P ORIF (open reduction internal fixation) fracture Status: Acute (3) Pain in right hip Status: Acute (4) Pulmonary embolism Status: Acute (5) Status post fall Status: Acute (6) Anemia Status: Acute (7) Tachycardia Status: Acute (8) Right knee pain Status: Acute - Assessment and Plan (Free Text) Plan: Continue Oxycontin, Ultran, Protonix and rest of Tx,
--- NOTE | 2019-02-22 17:26 | CP.PCM.CON ---
History of Present Illness - History of Present Illness History of Present Illness: 83 year old female admitted with right hip fracture s/p ORIF, currently admitted to TCU for rehab, asked to recommend VTE prophylaxis. The patient is planning to travel to [place] in the near future. She has been participating better with PT these past few days per her daughter. A CT angio of the chest on 02/10 revealed B/L pulmonary emboli but repeat CT angio of the chest on 02/14 was negative for PE. She has been receiving DVT prophylaxis with lovenox. She denies abnormal bleeding, bruising, and clotting in the past. Past medical history: None Past surgical history: , appendectomy, right hip ORIF Family history: Denies hematologic and oncologic problems Social history: Denies tobacco, alcohol, and illicit drug use. Allergies: NKA Review of systems: All remaining review of systems including HEENT, c ardiovascular, respiratory, gastrointestinal, genitourinary, musculoskeletal, dermatologic, neurologic, and psychiatric are negative unless mentioned in the HPI. Past Patient History - Past Medical History & Family History Past Medical History?: Yes - Past Social History Smoking Status: Never Smoked Alcohol: None Drugs: Denies Home Situation {Lives}: With Family - CARDIAC Hx Cardiac Disorders: No - PULMONARY Hx Respiratory Disorders: Yes Hx Pulmonary Embolism: Yes - NEUROLOGICAL Hx Neurological Disorder: No - HEENT Hx HEENT Problems: No - RENAL Hx Chronic Kidney Disease: No - ENDOCRINE/METABOLIC Hx Endocrine Disorders: No - HEMATOLOGICAL/ONCOLOGICAL Hx Blood Disorders: Yes Hx Anemia: Yes Hx Blood Transfusions: Yes Hx Blood Transfusion Reaction: No - INTEGUMENTARY Hx Dermatological Problems: No - MUSCULOSKELETAL/RHEUMATOLOGICAL Hx Musculoskeletal Disorders: Yes Hx Falls: Yes Hx Fractures: Yes - GASTROINTESTINAL Hx Gastrointestinal Disorders: No - GENITOURINARY/GYNECOLOGICAL Hx Genitourinary Disorders: No - PSYCHIATRIC Hx Psychophysiologic Disorder: No Hx Substance Use: No - SURGICAL HISTORY Hx Surgeries: Yes Hx Appendectomy: Yes Hx Section: Yes Hx Open Reduction Internal Fixation: Yes (r hip 02/09) - ANESTHESIA Hx Anesthesia: Yes Hx Anesthesia Reactions: No Meds Allergies/Adverse Reactions: Allergies Allergy/AdvReac Type Severity Reaction Status Date / Time No Known Allergies Allergy Verified 02/13/19 17:43 - Medications Medications: Current Medications Acetaminophen (Tylenol 325mg Tab) 650 mg PO Q6 PRN PRN Reason: Pain, moderate (4-7) Calcium Carbonate (Oscal) 500 mg PO DAILY [facility] Last Admin: 02/22/19 09:08 Dose: 500 mg Cholecalciferol (Vitamin D) 4,000 intlu PO DAILY [facility] Last Admin: 02/22/19 09:08 Dose: 4,000 intlu Docusate Sodium (Colace) 100 mg PO BID [facility] Last Admin: 02/22/19 16:54 Dose: 100 mg Enoxaparin Sodium (Lovenox) 40 mg SC DAILY [facility]; Protocol Last Admin: 02/22/19 09:06 Dose: 40 mg Ferrous Sulfate (Feosol) 325 mg PO BIDWM [facility] Last Admin: 02/22/19 16:55 Dose: 325 mg Folic Acid (Folic Acid) 1 mg PO DAILY [facility] Last Admin: 02/22/19 09:06 Dose: 1 mg Magnesium Hydroxide (Milk Of Magnesia) 30 ml PO DAILY PRN PRN Reason: Constipation Multivitamins/Minerals (Therapeutic-M Tab) 1 tab PO DAILY [facility] Last Admin: 02/22/19 09:06 Dose: 1 tab Oxycodone HCl (Oxycodone Immediate Release Tab) 5 mg PO Q6 PRN PRN Reason: 7-10 pain Last Admin: 02/19/19 09:45 Dose: 5 mg Oxycodone HCl (Oxycontin Extended Release Tab) 10 mg PO Q12 [facility] Stop: 02/24/19 21:01 Last Admin: 02/22/19 09:10 Dose: 10 mg Pantoprazole Sodium (Protonix Ec Tab) 20 mg PO DAILY [facility] Last Admin: 02/22/19 09:07 Dose: 20 mg Senna/Docusate Sodium (Senokot S 50 Mg-8.6 Mg) 2 tab PO HS [facility] Last Admin: 02/21/19 22:13 Dose: 2 tab Tramadol HCl (Ultram) 50 mg PO Q6 PRN PRN Reason: 4-610 pain Last Admin: 02/22/19 16:57 Dose: 50 mg Physical Exam - Head Exam Head Exam: ATRAUMATIC - Eye Exam Eye Exam: Normal appearance - ENT Exam ENT Exam: Mucous Membranes Dry - Respiratory Exam Respiratory Exam: NORMAL BREATHING PATTERN - Cardiovascular Exam Cardiovascular Exam: +S1, +S2 - GI/Abdominal Exam GI & Abdominal Exam: Normal Bowel Sounds - Extremities Exam Extremities exam: Positive for: pedal edema - Neurological Exam Neurological exam: Oriented x3 - Psychiatric Exam Psychiatric exam: Normal Affect, Normal Mood Results - Vital Signs Recent Vital Signs: Last Vital Signs Temp 97.8 F 02/22/19 16:23 Pulse 90 02/22/19 16:23 Resp 20 02/22/19 16:23 BP 111/65 02/22/19 16:23 Pulse Ox 97 02/22/19 16:23 - Labs Result Diagrams: 02/16/19 06:20 02/16/19 06:20 Assessment & Plan (1) Pulmonary embolism Assessment and Plan: repeat CT angio chest negative for PE LE venous duplex negative for DVT the patient is high risk for VTE - agree with DVT prophylaxis recommend outpatient Xarelto 10mg daily until patient is fully ambulatory in [place] Status: Acute Priority: High (2) Anemia Assessment and Plan: surgical blood loss no iron/b12/folate deficiency Thank you for this interesting consult. Status: Acute Priority: High
--- NOTE | 2019-02-22 18:19 | CP.PCM.PN ---
Subjective - Date & Time of Evaluation Date of Evaluation: 02/22/19 Time of Evaluation: 18:18 - Subjective Subjective: Patient seen in the room doing ok but upset stomach no fever no vomiting but nausea right knee still doing well and continues to improve in therapies Objective - Vital Signs/Intake and Output Vital Signs (last 24 hours): Temp Pulse Resp BP Pulse Ox 97.8 F 90 20 111/65 97 02/22/19 16:23 02/22/19 16:23 02/22/19 16:23 02/22/19 16:23 02/22/19 16:23 - Medications Medications: Current Medications Acetaminophen (Tylenol 325mg Tab) 650 mg PO Q6 PRN PRN Reason: Pain, moderate (4-7) Calcium Carbonate (Oscal) 500 mg PO DAILY [facility] Last Admin: 02/22/19 09:08 Dose: 500 mg Cholecalciferol (Vitamin D) 4,000 intlu PO DAILY [facility] Last Admin: 02/22/19 09:08 Dose: 4,000 intlu Docusate Sodium (Colace) 100 mg PO BID [facility] Last Admin: 02/22/19 16:54 Dose: 100 mg Enoxaparin Sodium (Lovenox) 40 mg SC DAILY [facility]; Protocol Last Admin: 02/22/19 09:06 Dose: 40 mg Ferrous Sulfate (Feosol) 325 mg PO BIDWM [facility] Last Admin: 02/22/19 16:55 Dose: 325 mg Folic Acid (Folic Acid) 1 mg PO DAILY [facility] Last Admin: 02/22/19 09:06 Dose: 1 mg Magnesium Hydroxide (Milk Of Magnesia) 30 ml PO DAILY PRN PRN Reason: Constipation Multivitamins/Minerals (Therapeutic-M Tab) 1 tab PO DAILY [facility] Last Admin: 02/22/19 09:06 Dose: 1 tab Oxycodone HCl (Oxycodone Immediate Release Tab) 5 mg PO Q6 PRN PRN Reason: 7-09/06 pain Last Admin: 02/19/19 09:45 Dose: 5 mg Oxycodone HCl (Oxycontin Extended Release Tab) 10 mg PO Q12 [facility] Stop: 02/24/19 21:01 Last Admin: 02/22/19 09:10 Dose: 10 mg Pantoprazole Sodium (Protonix Ec Tab) 20 mg PO DAILY [facility] Last Admin: 02/22/19 09:07 Dose: 20 mg Senna/Docusate Sodium (Senokot S 50 Mg-8.6 Mg) 2 tab PO HS [facility] Last Admin: 02/21/19 22:13 Dose: 2 tab Tramadol HCl (Ultram) 50 mg PO Q6 PRN PRN Reason: 4-6/10 pain Last Admin: 02/22/19 16:57 Dose: 50 mg - Labs Labs: 02/16/19 06:20 02/16/19 06:20 PT 11.7 Seconds (9.8-13.1) 02/16/19 06:20 INR 1.0 02/16/19 06:20
[2019-02-22] MEDS ORDERED: Alum-Mag Hydrox-Simethicone Susp (30 mL) PO PRN (20:07)
[2019-02-22] MEDS: Docusate-Senna 50 mg-8.6 mg Tab PO SCH (21:19)
[2019-02-23] MEDS: oxyCODONE 10 mg ER Tab (oxyCONTIN) PO SCH ×2 (09:07→21:40)
[2019-02-23] MEDS: Multivitamin With Minerals Tab PO SCH (09:08)
[2019-02-23] MEDS: Enoxaparin 40 mg Syringe SC SCH (09:08)
[2019-02-23] MEDS: Pantoprazole 20 mg EC Tab PO SCH (09:09)
[2019-02-23] MEDS: Cholecalciferol 1,000 INTLU TAB PO SCH (09:09)
[2019-02-23] MEDS: oxyCODONE 5 mg Immediate Release Tab PO PRN ×2 (13:28→23:05)
--- NOTE | 2019-02-23 13:44 | CP.PCM.PN ---
Subjective - Date & Time of Evaluation Date of Evaluation: 02/23/19 Time of Evaluation: 10:30 - Subjective Subjective: S/P ORIF R Femur 2nd to Fx. Pt awake, c/o of pain in R knee, R hip relieved with pain medications. Objective - Vital Signs/Intake and Output Vital Signs (last 24 hours): Temp Pulse Resp BP Pulse Ox 98.4 F 91 H 20 112/64 94 L 02/22/19 20:00 02/22/19 20:00 02/22/19 20:00 02/22/19 20:00 02/22/19 20:00 - Medications Medications: Current Medications Acetaminophen (Tylenol 325mg Tab) 650 mg PO Q6 PRN PRN Reason: Pain, moderate (4-7) Al Hydrox/Mg Hydrox/Simethicone (Maalox Plus 30 Ml) 30 ml PO Q4 PRN PRN Reason: Indigestion / Heartburn Calcium Carbonate (Oscal) 500 mg PO DAILY [facility] Last Admin: 02/23/19 09:09 Dose: 500 mg Cholecalciferol (Vitamin D) 4,000 intlu PO DAILY [facility] Last Admin: 02/23/19 09:09 Dose: 4,000 intlu Ciprofloxacin (Cipro) 500 mg PO Q12 [facility]; Protocol Docusate Sodium (Colace) 100 mg PO BID [facility] Last Admin: 02/23/19 09:09 Dose: 100 mg Enoxaparin Sodium (Lovenox) 40 mg SC DAILY [facility]; Protocol Ferrous Sulfate (Feosol) 325 mg PO BIDWM [facility] Last Admin: 02/23/19 09:08 Dose: 325 mg Folic Acid (Folic Acid) 1 mg PO DAILY [facility] Last Admin: 02/23/19 09:09 Dose: 1 mg Magnesium Hydroxide (Milk Of Magnesia) 30 ml PO DAILY PRN PRN Reason: Constipation Multivitamins/Minerals (Therapeutic-M Tab) 1 tab PO DAILY [facility] Last Admin: 02/23/19 09:08 Dose: 1 tab Oxycodone HCl (Oxycodone Immediate Release Tab) 5 mg PO Q6 PRN PRN Reason: 7-10/10 pain Last Admin: 02/23/19 13:28 Dose: 5 mg Oxycodone HCl (Oxycontin Extended Release Tab) 10 mg PO Q12 [facility] Stop: 02/24/19 21:01 Last Admin: 02/23/19 09:07 Dose: 10 mg Pantoprazole Sodium (Protonix Ec Tab) 20 mg PO DAILY [facility] Last Admin: 02/23/19 09:09 Dose: 20 mg Senna/Docusate Sodium (Senokot S 50 Mg-8.6 Mg) 2 tab PO HS [facility] Last Admin: 02/22/19 21:19 Dose: 2 tab Tramadol HCl (Ultram) 50 mg PO Q6 PRN PRN Reason: 4-6/10 pain Last Admin: 02/23/19 09:07 Dose: 50 mg - Labs Labs: 02/16/19 06:20 02/16/19 06:20 PT 11.7 Seconds (9.8-13.1) 02/16/19 06:20 INR 1.0 02/16/19 06:20 - Constitutional Appears: No Acute Distress - Head Exam Head Exam: NORMAL INSPECTION - Eye Exam Eye Exam: PERRL - ENT Exam ENT Exam: Normal Exam - Neck Exam Neck Exam: Normal Inspection - Respiratory Exam Respiratory Exam: NORMAL BREATHING PATTERN - Cardiovascular Exam Cardiovascular Exam: REGULAR RHYTHM - GI/Abdominal Exam GI & Abdominal Exam: Soft, Normal Bowel Sounds - Back Exam Back Exam: NORMAL INSPECTION - Neurological Exam Neurological Exam: Alert, CN II-XII Intact, Oriented x3. absent: Motor Sensory Deficit - Psychiatric Exam Psychiatric exam: Normal Mood - Skin Skin Exam: Warm Assessment and Plan (1) Fracture, intertrochanteric, right femur Status: Acute (2) UTI (urinary tract infection) Assessment & Plan: E Coli. MRSA Status: Acute (3) S/P ORIF (open reduction internal fixation) fracture Status: Acute (4) Pain in right hip Status: Acute (5) Pulmonary embolism Status: Acute (6) Status post fall Status: Acute (7) Anemia Status: Acute (8) Tachycardia Status: Acute (9) Right knee pain Status: Acute - Assessment and Plan (Free Text) Plan: U C-S Positve for E Coli-MRSA, add Cipro, contact precaution, continue Oxycodone and rest of medications.
[2019-02-23] MEDS: Docusate-Senna 50 mg-8.6 mg Tab PO SCH (21:46)
[2019-02-24 08:13] LABS: BLOOD UREA NITROGEN 21 mg/dl (7-17); CALCIUM 9.2 mg/dL (8.4-10.2); GFR NON-AFRICAN AMERICAN > 60
[2019-02-24 08:27] LABS: HEMOGLOBIN 10.8 g/dL (12.0-16.0); MEAN CELL VOLUME 96.7 fl (81.0-99.0); MEAN CORPUSCULAR HEMOGLOBIN 32.5 pg (27.0-31.0); MEAN CORPUSCULAR HGB CONC 33.5 g/dL (33.0-37.0); RBC 3.34 Mil/uL (3.80-5.20); RED CELL DISTRIBUTION WIDTH 17.1 % (11.5-14.5); WHITE BLOOD COUNT 10.9 K/uL (4.8-10.8)
[2019-02-24] MEDS: oxyCODONE 10 mg ER Tab (oxyCONTIN) PO SCH ×2 (08:30→21:23)
[2019-02-24] MEDS: Pantoprazole 20 mg EC Tab PO SCH (08:31)
[2019-02-24] MEDS: Multivitamin With Minerals Tab PO SCH (08:31)
[2019-02-24] MEDS: Cholecalciferol 1,000 INTLU TAB PO SCH (08:32)
[2019-02-24] MEDS ORDERED: Enoxaparin 40 mg Syringe SC SCH (09:00)
[2019-02-24] MEDS: Enoxaparin 40 mg Syringe SC SCH (12:45)
[2019-02-24] MEDS: oxyCODONE 5 mg Immediate Release Tab PO PRN (16:07)
--- NOTE | 2019-02-24 16:34 | CP.PCM.PN ---
Subjective - Date & Time of Evaluation Date of Evaluation: 02/24/19 Time of Evaluation: 14:30 - Subjective Subjective: S/P ORIF R Femur 2nd to Fx. Pain R hip, R knee, R shoulder pain using the walker. Objective - Vital Signs/Intake and Output Vital Signs (last 24 hours): Temp Pulse Resp BP Pulse Ox 98.2 F 105 H 20 135/80 98 02/24/19 08:58 02/24/19 08:58 02/24/19 08:58 02/24/19 08:58 02/24/19 08:58 - Medications Medications: Current Medications Acetaminophen (Tylenol 325mg Tab) 650 mg PO Q6 PRN PRN Reason: Pain, moderate (4-7) Al Hydrox/Mg Hydrox/Simethicone (Maalox Plus 30 Ml) 30 ml PO Q4 PRN PRN Reason: Indigestion / Heartburn Calcium Carbonate (Oscal) 500 mg PO DAILY [facility] Last Admin: 02/24/19 08:31 Dose: 500 mg Cholecalciferol (Vitamin D) 4,000 intlu PO DAILY [facility] Last Admin: 02/24/19 08:32 Dose: 4,000 intlu Ciprofloxacin (Cipro) 500 mg PO Q12 [facility]; Protocol Last Admin: 02/24/19 08:31 Dose: 500 mg Docusate Sodium (Colace) 100 mg PO BID [facility] Last Admin: 02/24/19 16:09 Dose: 100 mg Enoxaparin Sodium (Lovenox) 40 mg SC DAILY [facility]; Protocol Last Admin: 02/24/19 12:45 Dose: 40 mg Ferrous Sulfate (Feosol) 325 mg PO BIDWM [facility] Last Admin: 02/24/19 16:09 Dose: 325 mg Folic Acid (Folic Acid) 1 mg PO DAILY [facility] Last Admin: 02/24/19 08:31 Dose: 1 mg Magnesium Hydroxide (Milk Of Magnesia) 30 ml PO DAILY PRN PRN Reason: Constipation Multivitamins/Minerals (Therapeutic-M Tab) 1 tab PO DAILY [facility] Last Admin: 02/24/19 08:31 Dose: 1 tab Oxycodone HCl (Oxycodone Immediate Release Tab) 5 mg PO Q6 PRN PRN Reason: 7-10/10 pain Last Admin: 02/24/19 16:07 Dose: 5 mg Oxycodone HCl (Oxycontin Extended Release Tab) 10 mg PO Q12 [facility] Stop: 02/24/19 21:01 Last Admin: 02/24/19 08:30 Dose: 10 mg Pantoprazole Sodium (Protonix Ec Tab) 20 mg PO DAILY [facility] Last Admin: 02/24/19 08:31 Dose: 20 mg Senna/Docusate Sodium (Senokot S 50 Mg-8.6 Mg) 2 tab PO HS [facility] Last Admin: 02/23/19 21:46 Dose: Not Given Tramadol HCl (Ultram) 50 mg PO Q6 PRN PRN Reason: 4-6/10 pain Last Admin: 02/24/19 12:52 Dose: 50 mg - Labs Labs: 02/24/19 06:05 02/24/19 06:05 PT 11.7 Seconds (9.8-13.1) 02/16/19 06:20 INR 1.0 02/16/19 06:20 - Constitutional Appears: No Acute Distress - Head Exam Head Exam: NORMAL INSPECTION - Eye Exam Eye Exam: PERRL - ENT Exam ENT Exam: Normal Exam - Neck Exam Neck Exam: Normal Inspection - Respiratory Exam Respiratory Exam: NORMAL BREATHING PATTERN - Cardiovascular Exam Cardiovascular Exam: REGULAR RHYTHM - GI/Abdominal Exam GI & Abdominal Exam: Soft, Normal Bowel Sounds - Extremities Exam Extremities Exam: Tenderness (mild R hip.) Additional comments: Incision healing well., 2+ non pitting edema R leg - Back Exam Back Exam: NORMAL INSPECTION - Neurological Exam Neurological Exam: Alert, Awake, CN II-XII Intact, Oriented x3. absent: Motor Sensory Deficit - Psychiatric Exam Psychiatric exam: Normal Mood - Skin Skin Exam: Warm Assessment and Plan (1) Fracture, intertrochanteric, right femur Status: Acute (2) UTI (urinary tract infection) Assessment & Plan: E Coli, MRSA Status: Acute (3) S/P ORIF (open reduction internal fixation) fracture Status: Acute (4) Pain in right hip Status: Acute (5) Pulmonary embolism Status: Acute (6) Status post fall Status: Acute (7) Anemia Status: Acute (8) Tachycardia Status: Acute (9) Right knee pain Status: Acute - Assessment and Plan (Free Text) Plan: Continue Cipro, Lovenox, Oxycontin, Oxycodone, monitor Platelet, continue PT.
[2019-02-24] MEDS: Docusate-Senna 50 mg-8.6 mg Tab PO SCH (21:24)
[2019-02-25] MEDS: oxyCODONE 5 mg Immediate Release Tab PO PRN ×2 (02:26→13:38)
[2019-02-25 07:45] LABS: HEMOGLOBIN 10.7 g/dL (12.0-16.0); MEAN CELL VOLUME 95.7 fl (81.0-99.0); MEAN CORPUSCULAR HEMOGLOBIN 32.6 pg (27.0-31.0); MEAN CORPUSCULAR HGB CONC 34.1 g/dL (33.0-37.0); RBC 3.27 Mil/uL (3.80-5.20); RED CELL DISTRIBUTION WIDTH 17.3 % (11.5-14.5)
[2019-02-25 08:24] LABS: BLOOD UREA NITROGEN 17 mg/dl (7-17); CALCIUM 9.4 mg/dL (8.4-10.2); GFR NON-AFRICAN AMERICAN > 60
[2019-02-25] MEDS: Enoxaparin 40 mg Syringe SC SCH (09:41)
[2019-02-25] MEDS: Cholecalciferol 1,000 INTLU TAB PO SCH (09:42)
[2019-02-25] MEDS: oxyCODONE 10 mg ER Tab (oxyCONTIN) PO SCH ×2 (09:42→20:10)
[2019-02-25] MEDS: Pantoprazole 20 mg EC Tab PO SCH (09:42)
[2019-02-25] MEDS: Multivitamin With Minerals Tab PO SCH (09:42)
--- NOTE | 2019-02-25 16:14 | CP.PCM.PN ---
Subjective - Date & Time of Evaluation Date of Evaluation: 02/25/19 Time of Evaluation: 12:00 - Subjective Subjective: Pain R Hip, R knee relieved with Pain medication Objective - Vital Signs/Intake and Output Vital Signs (last 24 hours): Temp Pulse Resp BP Pulse Ox 98.2 F 127 H 20 121/78 95 02/25/19 08:34 02/25/19 08:34 02/25/19 08:34 02/25/19 08:34 02/25/19 08:34 - Medications Medications: Current Medications Acetaminophen (Tylenol 325mg Tab) 650 mg PO Q6 PRN PRN Reason: Pain, moderate (4-7) Al Hydrox/Mg Hydrox/Simethicone (Maalox Plus 30 Ml) 30 ml PO Q4 PRN PRN Reason: Indigestion / Heartburn Aspirin (Ecotrin) 81 mg PO DAILY [facility] Calcium Carbonate (Oscal) 500 mg PO DAILY [facility] Last Admin: 02/25/19 09:42 Dose: 500 mg Cholecalciferol (Vitamin D) 4,000 intlu PO DAILY [facility] Last Admin: 02/25/19 09:42 Dose: 4,000 intlu Ciprofloxacin (Cipro) 500 mg PO Q12 [facility]; Protocol Last Admin: 02/25/19 09:41 Dose: 500 mg Docusate Sodium (Colace) 100 mg PO BID [facility] Last Admin: 02/25/19 09:41 Dose: 100 mg Enoxaparin Sodium (Lovenox) 40 mg SC DAILY [facility]; Protocol Last Admin: 02/25/19 09:41 Dose: 40 mg Ferrous Sulfate (Feosol) 325 mg PO BIDWM [facility] Last Admin: 02/25/19 09:41 Dose: 325 mg Folic Acid (Folic Acid) 1 mg PO DAILY [facility] Last Admin: 02/25/19 09:41 Dose: 1 mg Magnesium Hydroxide (Milk Of Magnesia) 30 ml PO DAILY PRN PRN Reason: Constipation Multivitamins/Minerals (Therapeutic-M Tab) 1 tab PO DAILY [facility] Last Admin: 02/25/19 09:42 Dose: 1 tab Oxycodone HCl (Oxycodone Immediate Release Tab) 5 mg PO Q6 PRN PRN Reason: 7-10/10 pain Last Admin: 02/25/19 13:38 Dose: 5 mg Oxycodone HCl (Oxycontin Extended Release Tab) 10 mg PO Q12 [facility] Stop: 02/28/19 09:46 Last Admin: 02/25/19 09:42 Dose: 10 mg Pantoprazole Sodium (Protonix Ec Tab) 20 mg PO DAILY [facility] Last Admin: 02/25/19 09:42 Dose: 20 mg Senna/Docusate Sodium (Senokot S 50 Mg-8.6 Mg) 2 tab PO HS [facility] Last Admin: 02/24/19 21:24 Dose: 2 tab Tramadol HCl (Ultram) 50 mg PO Q6 PRN PRN Reason: 4-6/ pain Last Admin: 02/24/19 12:52 Dose: 50 mg - Labs Labs: 02/25/19 06:30 02/25/19 06:30 PT 11.7 Seconds (9.8-13.1) 02/16/19 06:20 INR 1.0 02/16/19 06:20 - Constitutional Appears: No Acute Distress - Head Exam Head Exam: NORMAL INSPECTION - Eye Exam Eye Exam: PERRL - ENT Exam ENT Exam: Normal Exam - Neck Exam Neck Exam: Normal Inspection - Respiratory Exam Respiratory Exam: Clear to Ausculation Bilateral - Cardiovascular Exam Cardiovascular Exam: REGULAR RHYTHM - GI/Abdominal Exam GI & Abdominal Exam: Soft, Normal Bowel Sounds - Extremities Exam Extremities Exam: Tenderness (R shoulder, R Hip, R knee, R hip surgical incision healing well) - Neurological Exam Neurological Exam: Alert, CN II-XII Intact, Oriented x3. absent: Motor Sensory Deficit - Psychiatric Exam Psychiatric exam: Anxious - Skin Skin Exam: Warm Assessment and Plan (1) Fracture, intertrochanteric, right femur Status: Acute (2) UTI (urinary tract infection) Status: Acute (3) S/P ORIF (open reduction internal fixation) fracture Status: Acute (4) Pain in right hip Status: Acute (5) Pulmonary embolism Status: Acute (6) Status post fall Status: Acute (7) Anemia Status: Acute (8) Tachycardia Status: Acute (9) Right knee pain Status: Acute (10) Reactive thrombocytosis Status: Acute - Assessment and Plan (Free Text) Plan: Lovenox, add ASA, Hematology consult, continue Oxycodone, Oxycodone ER , PT and rest of Tx
[2019-02-25] MEDS: Docusate-Senna 50 mg-8.6 mg Tab PO SCH ×2 (20:57→21:00)
--- NOTE | 2019-02-26 08:34 | CP.PCM.PN ---
Subjective - Date & Time of Evaluation Date of Evaluation: 02/26/19 Time of Evaluation: 08:00 - Subjective Subjective: Patient seen and examined at bedside. Daughter at bedside. Patient c/o increased LLE pain which began yesterday hindering her PT session. Found to have ESBL in urine, on PO abx, contact isolation. Denies any CP/SOB/dizziness/fever. Objective - Vital Signs/Intake and Output Vital Signs (last 24 hours): Temp Pulse Resp BP Pulse Ox 98.3 F 96 H 20 123/71 99 02/26/19 08:13 02/26/19 08:13 02/26/19 08:13 02/26/19 08:13 02/26/19 08:13 - Medications Medications: Current Medications Acetaminophen (Tylenol 325mg Tab) 650 mg PO Q6 PRN PRN Reason: Pain, moderate (4-7) Al Hydrox/Mg Hydrox/Simethicone (Maalox Plus 30 Ml) 30 ml PO Q4 PRN PRN Reason: Indigestion / Heartburn Aspirin (Ecotrin) 81 mg PO DAILY [facility] Last Admin: 02/25/19 16:22 Dose: 81 mg Calcium Carbonate (Oscal) 500 mg PO DAILY [facility] Last Admin: 02/25/19 09:42 Dose: 500 mg Cholecalciferol (Vitamin D) 4,000 intlu PO DAILY [facility] Last Admin: 02/25/19 09:42 Dose: 4,000 intlu Ciprofloxacin (Cipro) 500 mg PO Q12 [facility]; Protocol Last Admin: 02/25/19 20:11 Dose: 500 mg Docusate Sodium (Colace) 100 mg PO BID [facility] Last Admin: 02/25/19 16:22 Dose: 100 mg Enoxaparin Sodium (Lovenox) 40 mg SC DAILY [facility]; Protocol Last Admin: 02/25/19 09:41 Dose: 40 mg Ferrous Sulfate (Feosol) 325 mg PO BIDWM [facility] Last Admin: 02/25/19 16:23 Dose: 325 mg Folic Acid (Folic Acid) 1 mg PO DAILY [facility] Last Admin: 02/25/19 09:41 Dose: 1 mg Magnesium Hydroxide (Milk Of Magnesia) 30 ml PO DAILY PRN PRN Reason: Constipation Multivitamins/Minerals (Therapeutic-M Tab) 1 tab PO DAILY [facility] Last Admin: 02/25/19 09:42 Dose: 1 tab Oxycodone HCl (Oxycodone Immediate Release Tab) 5 mg PO Q6 PRN PRN Reason: 7-09/06 pain Last Admin: 02/25/19 13:38 Dose: 5 mg Oxycodone HCl (Oxycontin Extended Release Tab) 10 mg PO Q12 [facility] Stop: 02/28/19 09:46 Last Admin: 02/25/19 20:10 Dose: 10 mg Pantoprazole Sodium (Protonix Ec Tab) 20 mg PO DAILY [facility] Last Admin: 02/25/19 09:42 Dose: 20 mg Senna/Docusate Sodium (Senokot S 50 Mg-8.6 Mg) 2 tab PO HS [facility] Last Admin: 02/25/19 21:00 Dose: 2 tab Tramadol HCl (Ultram) 50 mg PO Q6 PRN PRN Reason: -05/07 pain Last Admin: 02/24/19 12:52 Dose: 50 mg - Labs Labs: 02/25/19 06:30 02/25/19 06:30 PT 11.7 Seconds (9.8-13.1) 02/16/19 06:20 INR 1.0 02/16/19 06:20 - Extremities Exam Additional comments: RLE: Dressings CDI diffuse thigh tenderness moderate thigh swelling improving sensation intact SP/DP/TN motor intact EHL/FHL/TA/G pedal pulse intact calves soft NT Assessment and Plan (1) Fracture, intertrochanteric, right femur Assessment & Plan: POD#17 s/p R femur ORIF w/ IM nail B/l LE duplex r/o LE DVT Hematology consult appreciated PT/OT WBAT d/c planning orthopedically stable above d/w Dr. Rodríguez in agreement Status: Acute
[2019-02-26] MEDS: Pantoprazole 20 mg EC Tab PO SCH (09:18)
[2019-02-26] MEDS: Multivitamin With Minerals Tab PO SCH (09:18)
[2019-02-26] MEDS: Enoxaparin 40 mg Syringe SC SCH (09:18)
[2019-02-26] MEDS: Cholecalciferol 1,000 INTLU TAB PO SCH (09:19)
[2019-02-26] MEDS: oxyCODONE 5 mg Immediate Release Tab PO PRN ×2 (09:20→17:15)
[2019-02-26] MEDS: oxyCODONE 10 mg ER Tab (oxyCONTIN) PO SCH ×2 (11:58→22:13)
[2019-02-26] MEDS: Docusate-Senna 50 mg-8.6 mg Tab PO SCH (22:12)
[2019-02-27 06:20] LABS: HEMOGLOBIN 10.3 g/dL (12.0-16.0); RBC 3.23 Mil/uL (3.80-5.20); RED CELL DISTRIBUTION WIDTH 16.9 % (11.5-14.5); WHITE BLOOD COUNT 8.9 K/uL (4.8-10.8)
[2019-02-27] MEDS: oxyCODONE 10 mg ER Tab (oxyCONTIN) PO SCH ×2 (08:10→21:42)
[2019-02-27] MEDS: Enoxaparin 40 mg Syringe SC SCH (08:11)
[2019-02-27] MEDS: Cholecalciferol 1,000 INTLU TAB PO SCH (08:12)
[2019-02-27] MEDS: Pantoprazole 20 mg EC Tab PO SCH (08:12)
[2019-02-27] MEDS: Multivitamin With Minerals Tab PO SCH (08:12)
[2019-02-27] MEDS: oxyCODONE 5 mg Immediate Release Tab PO PRN (13:08)
--- NOTE | 2019-02-27 15:43 | CP.PCM.PN ---
Subjective - Date & Time of Evaluation Date of Evaluation: 02/27/19 Time of Evaluation: 09:00 - Subjective Subjective: F/U R Femur Fx, s/p ORIF Pain in R hip and R leg. Objective - Vital Signs/Intake and Output Vital Signs (last 24 hours): Temp Pulse Resp BP Pulse Ox 99.0 F 102 H 20 117/71 96 02/27/19 08:20 02/27/19 08:20 02/27/19 08:20 02/27/19 08:20 02/27/19 08:20 - Medications Medications: Current Medications Acetaminophen (Tylenol 325mg Tab) 650 mg PO Q6 PRN PRN Reason: Pain, moderate (4-7) Al Hydrox/Mg Hydrox/Simethicone (Maalox Plus 30 Ml) 30 ml PO Q4 PRN PRN Reason: Indigestion / Heartburn Aspirin (Ecotrin) 81 mg PO DAILY [facility] Last Admin: 02/27/19 08:13 Dose: 81 mg Calcium Carbonate (Oscal) 500 mg PO DAILY [facility] Last Admin: 02/27/19 08:12 Dose: 500 mg Cholecalciferol (Vitamin D) 4,000 intlu PO DAILY [facility] Last Admin: 02/27/19 08:12 Dose: 4,000 intlu Ciprofloxacin (Cipro) 500 mg PO Q12 [facility]; Protocol Last Admin: 02/27/19 08:12 Dose: 500 mg Docusate Sodium (Colace) 100 mg PO BID [facility] Last Admin: 02/27/19 08:13 Dose: 100 mg Enoxaparin Sodium (Lovenox) 40 mg SC DAILY [facility]; Protocol Last Admin: 02/27/19 08:11 Dose: 40 mg Ferrous Sulfate (Feosol) 325 mg PO BIDWM [facility] Last Admin: 02/27/19 08:12 Dose: 325 mg Folic Acid (Folic Acid) 1 mg PO DAILY [facility] Last Admin: 02/27/19 08:10 Dose: 1 mg Magnesium Hydroxide (Milk Of Magnesia) 30 ml PO DAILY PRN PRN Reason: Constipation Multivitamins/Minerals (Therapeutic-M Tab) 1 tab PO DAILY [facility] Last Admin: 02/27/19 08:12 Dose: 1 tab Oxycodone HCl (Oxycodone Immediate Release Tab) 5 mg PO Q6 PRN PRN Reason: 7-10/10 pain Last Admin: 02/27/19 13:08 Dose: 5 mg Oxycodone HCl (Oxycontin Extended Release Tab) 10 mg PO Q12 [facility] Stop: 02/28/19 09:46 Last Admin: 02/27/19 08:10 Dose: 10 mg Pantoprazole Sodium (Protonix Ec Tab) 20 mg PO DAILY [facility] Last Admin: 02/27/19 08:12 Dose: 20 mg Senna/Docusate Sodium (Senokot S 50 Mg-8.6 Mg) 2 tab PO HS [facility] Last Admin: 02/26/19 22:12 Dose: 2 tab Tramadol HCl (Ultram) 50 mg PO Q6 PRN PRN Reason: 4-6/ pain Last Admin: 02/24/19 12:52 Dose: 50 mg - Labs Labs: 02/27/19 06:12 02/25/19 06:30 PT 11.7 Seconds (9.8-13.1) 02/16/19 06:20 INR 1.0 02/16/19 06:20 - Constitutional Appears: No Acute Distress - Head Exam Head Exam: NORMAL INSPECTION - Eye Exam Eye Exam: PERRL - ENT Exam ENT Exam: Normal Exam - Neck Exam Neck Exam: Normal Inspection - Respiratory Exam Respiratory Exam: Clear to Ausculation Bilateral - Cardiovascular Exam Cardiovascular Exam: REGULAR RHYTHM - GI/Abdominal Exam GI & Abdominal Exam: Soft, Normal Bowel Sounds - Extremities Exam Extremities Exam: Tenderness (R shoulder, R hip, R knee.) Additional comments: R hip surgical incision healing well. 2 + non pitting edema R leg - Neurological Exam Neurological Exam: Alert, CN II-XII Intact, Oriented x3. absent: Motor Sensory Deficit - Psychiatric Exam Psychiatric exam: Anxious - Skin Skin Exam: Warm Assessment and Plan (1) Fracture, intertrochanteric, right femur Status: Acute (2) UTI (urinary tract infection) Status: Acute (3) S/P ORIF (open reduction internal fixation) fracture Status: Acute (4) Pain in right hip Status: Acute (5) Pulmonary embolism Status: Acute (6) Status post fall Status: Acute (7) Anemia Status: Acute (8) Tachycardia Status: Acute (9) Right knee pain Status: Acute (10) Reactive thrombocytosis Status: Acute - Assessment and Plan (Free Text) Plan: Continue current Tx, PT/OT. Pt will fly to [place] next Tuesday, Pt's daughter will decide tomorrow for rehab facility or to DC home with PT.
[2019-02-27 18:54] VITALS: BMI 28.3
[2019-02-27] MEDS: Docusate-Senna 50 mg-8.6 mg Tab PO SCH (21:47)
[2019-02-28] MEDS: Enoxaparin 40 mg Syringe SC SCH (08:16)
[2019-02-28] MEDS: Pantoprazole 20 mg EC Tab PO SCH (08:17)
[2019-02-28] MEDS: oxyCODONE 10 mg ER Tab (oxyCONTIN) PO SCH ×2 (08:17→21:06)
[2019-02-28] MEDS: Multivitamin With Minerals Tab PO SCH (08:17)
[2019-02-28] MEDS: Cholecalciferol 1,000 INTLU TAB PO SCH (08:18)
[2019-02-28] MEDS: oxyCODONE 5 mg Immediate Release Tab PO PRN (12:17)
--- NOTE | 2019-02-28 13:22 | CP.PCM.PN ---
Subjective - Date & Time of Evaluation Date of Evaluation: 02/28/19 Time of Evaluation: 09:50 - Subjective Subjective: F/U Fx R Femur/ s/p ORIF Pain in R hip, R knee, controlled with pain medications. Objective - Vital Signs/Intake and Output Vital Signs (last 24 hours): Temp Pulse Resp BP Pulse Ox 97.4 F L 105 H 20 116/70 96 02/28/19 07:55 02/28/19 07:55 02/28/19 07:55 02/28/19 07:55 02/28/19 07:55 - Medications Medications: Current Medications Acetaminophen (Tylenol 325mg Tab) 650 mg PO Q6 PRN PRN Reason: Pain, moderate (4-7) Al Hydrox/Mg Hydrox/Simethicone (Maalox Plus 30 Ml) 30 ml PO Q4 PRN PRN Reason: Indigestion / Heartburn Aspirin (Ecotrin) 81 mg PO DAILY [facility] Last Admin: 02/28/19 08:17 Dose: 81 mg Calcium Carbonate (Oscal) 500 mg PO DAILY [facility] Last Admin: 02/28/19 08:17 Dose: 500 mg Cholecalciferol (Vitamin D) 4,000 intlu PO DAILY [facility] Last Admin: 02/28/19 08:18 Dose: 4,000 intlu Ciprofloxacin (Cipro) 500 mg PO Q12 [facility]; Protocol Last Admin: 02/28/19 08:18 Dose: 500 mg Docusate Sodium (Colace) 100 mg PO BID [facility] Last Admin: 02/28/19 08:17 Dose: 100 mg Enoxaparin Sodium (Lovenox) 40 mg SC DAILY [facility]; Protocol Last Admin: 02/28/19 08:16 Dose: 40 mg Ferrous Sulfate (Feosol) 325 mg PO BIDWM [facility] Last Admin: 02/28/19 08:17 Dose: 325 mg Folic Acid (Folic Acid) 1 mg PO DAILY [facility] Last Admin: 02/28/19 08:16 Dose: 1 mg Magnesium Hydroxide (Milk Of Magnesia) 30 ml PO DAILY PRN PRN Reason: Constipation Multivitamins/Minerals (Therapeutic-M Tab) 1 tab PO DAILY [facility] Last Admin: 02/28/19 08:17 Dose: 1 tab Oxycodone HCl (Oxycodone Immediate Release Tab) 5 mg PO Q6 PRN PRN Reason: 7-10/10 pain Last Admin: 02/28/19 12:17 Dose: 5 mg Pantoprazole Sodium (Protonix Ec Tab) 20 mg PO DAILY [facility] Last Admin: 02/28/19 08:17 Dose: 20 mg Senna/Docusate Sodium (Senokot S 50 Mg-8.6 Mg) 2 tab PO HS [facility] Last Admin: 02/27/19 21:47 Dose: Not Given Tramadol HCl (Ultram) 50 mg PO Q6 PRN PRN Reason: 4-05/07 pain Last Admin: 02/27/19 17:21 Dose: 50 mg - Labs Labs: 02/27/19 06:12 02/25/19 06:30 PT 11.7 Seconds (9.8-13.1) 02/16/19 06:20 INR 1.0 02/16/19 06:20 - Constitutional Appears: No Acute Distress - Head Exam Head Exam: NORMAL INSPECTION - Eye Exam Eye Exam: PERRL - ENT Exam ENT Exam: Normal Exam - Neck Exam Neck Exam: Normal Inspection - Respiratory Exam Respiratory Exam: NORMAL BREATHING PATTERN - Cardiovascular Exam Cardiovascular Exam: REGULAR RHYTHM - GI/Abdominal Exam GI & Abdominal Exam: Soft, Normal Bowel Sounds - Extremities Exam Extremities Exam: Tenderness (R shoulder, R hip, R knee) Additional comments: R hip surgical incision healing well. 2 + non pitting edema R leg. - Back Exam Back Exam: NORMAL INSPECTION - Neurological Exam Neurological Exam: Alert, CN II-XII Intact, Oriented x3. absent: Motor Sensory Deficit - Psychiatric Exam Psychiatric exam: Anxious - Skin Skin Exam: Warm Assessment and Plan (1) Fracture, intertrochanteric, right femur Status: Acute (2) UTI (urinary tract infection) Status: Acute (3) S/P ORIF (open reduction internal fixation) fracture Status: Acute (4) Pain in right hip Status: Acute (5) Pulmonary embolism Status: Acute (6) Status post fall Status: Acute (7) Anemia Status: Acute (8) Tachycardia Status: Acute (9) Right knee pain Status: Acute (10) Reactive thrombocytosis Status: Acute - Assessment and Plan (Free Text) Plan: Full weight bearing R lower extremity, walking with a walker, continue current Tx, PT/OT
[2019-02-28] MEDS: Docusate-Senna 50 mg-8.6 mg Tab PO SCH (21:07)
--- NOTE | 2019-02-28 23:11 | CP.PCM.PN ---
Subjective - Date & Time of Evaluation Date of Evaluation: 02/28/19 Time of Evaluation: 11:00 - Subjective Subjective: Feels weak. Daughter at bedside. Objective - Vital Signs/Intake and Output Vital Signs (last 24 hours): Temp Pulse Resp BP Pulse Ox 98.4 F 108 H 20 142/75 97 02/28/19 21:19 02/28/19 21:19 02/28/19 21:19 02/28/19 21:19 02/28/19 21:19 - Medications Medications: Current Medications Acetaminophen (Tylenol 325mg Tab) 650 mg PO Q6 PRN PRN Reason: Pain, moderate (4-7) Al Hydrox/Mg Hydrox/Simethicone (Maalox Plus 30 Ml) 30 ml PO Q4 PRN PRN Reason: Indigestion / Heartburn Aspirin (Ecotrin) 81 mg PO DAILY [facility] Last Admin: 02/28/19 08:17 Dose: 81 mg Calcium Carbonate (Oscal) 500 mg PO DAILY [facility] Last Admin: 02/28/19 08:17 Dose: 500 mg Cholecalciferol (Vitamin D) 4,000 intlu PO DAILY [facility] Last Admin: 02/28/19 08:18 Dose: 4,000 intlu Ciprofloxacin (Cipro) 500 mg PO Q12 [facility]; Protocol Last Admin: 02/28/19 21:07 Dose: 500 mg Docusate Sodium (Colace) 100 mg PO BID [facility] Last Admin: 02/28/19 17:26 Dose: 100 mg Enoxaparin Sodium (Lovenox) 40 mg SC DAILY [facility]; Protocol Last Admin: 02/28/19 08:16 Dose: 40 mg Ferrous Sulfate (Feosol) 325 mg PO BIDWM [facility] Last Admin: 02/28/19 17:27 Dose: 325 mg Folic Acid (Folic Acid) 1 mg PO DAILY [facility] Last Admin: 02/28/19 08:16 Dose: 1 mg Magnesium Hydroxide (Milk Of Magnesia) 30 ml PO DAILY PRN PRN Reason: Constipation Multivitamins/Minerals (Therapeutic-M Tab) 1 tab PO DAILY [facility] Last Admin: 02/28/19 08:17 Dose: 1 tab Oxycodone HCl (Oxycodone Immediate Release Tab) 5 mg PO Q6 PRN PRN Reason: 7-10/10 pain Last Admin: 02/28/19 12:17 Dose: 5 mg Oxycodone HCl (Oxycontin Extended Release Tab) 10 mg PO Q12 [facility] Stop: 03/03/19 21:01 Last Admin: 02/28/19 21:06 Dose: 10 mg Pantoprazole Sodium (Protonix Ec Tab) 20 mg PO DAILY [facility] Last Admin: 02/28/19 08:17 Dose: 20 mg Senna/Docusate Sodium (Senokot S 50 Mg-8.6 Mg) 2 tab PO HS [facility] Last Admin: 02/28/19 21:07 Dose: 2 tab Tramadol HCl (Ultram) 50 mg PO Q6 PRN PRN Reason: 4-6/ pain Last Admin: 02/27/19 17:21 Dose: 50 mg - Labs Labs: 02/27/19 06:12 02/25/19 06:30 PT 11.7 Seconds (9.8-13.1) 02/16/19 06:20 INR 1.0 02/16/19 06:20 - Head Exam Head Exam: ATRAUMATIC - Eye Exam Eye Exam: Normal appearance - ENT Exam ENT Exam: Mucous Membranes Dry - Respiratory Exam Respiratory Exam: NORMAL BREATHING PATTERN - Cardiovascular Exam Cardiovascular Exam: +S1, +S2 - GI/Abdominal Exam GI & Abdominal Exam: Normal Bowel Sounds Assessment and Plan (1) Pulmonary embolism Assessment & Plan: repeat CT angio chest negative for PE LE venous duplex negative for DVT the patient is high risk for VTE - agree with DVT prophylaxis recommend outpatient Xarelto 10mg daily until patient is fully ambulatory in [place] Status: Acute (2) Anemia Assessment & Plan: surgical blood loss no iron/b12/folate deficiency Status: Acute (3) Thrombocytosis Assessment & Plan: reactive does not require treatment will cont. to monitor Status: Acute
[2019-03-01] MEDS: Enoxaparin 40 mg Syringe SC SCH (08:27)
[2019-03-01] MEDS: oxyCODONE 10 mg ER Tab (oxyCONTIN) PO SCH ×2 (08:27→21:13)
[2019-03-01] MEDS: Multivitamin With Minerals Tab PO SCH (08:28)
[2019-03-01] MEDS: Cholecalciferol 1,000 INTLU TAB PO SCH (08:29)
[2019-03-01] MEDS: Pantoprazole 20 mg EC Tab PO SCH (08:29)
[2019-03-01] MEDS: oxyCODONE 5 mg Immediate Release Tab PO PRN (12:47)
--- NOTE | 2019-03-01 14:30 | CP.PCM.PN ---
Subjective - Date & Time of Evaluation Date of Evaluation: 03/01/19 Time of Evaluation: 14:15 - Subjective Subjective: F/U Fx R femur, s/p ORIF c/o of mild pain R knee, ambulating with walker and PT, full weight bearing RLE. Objective - Vital Signs/Intake and Output Vital Signs (last 24 hours): Temp Pulse Resp BP Pulse Ox 97.9 F 89 20 129/73 97 03/01/19 08:44 03/01/19 08:44 03/01/19 08:44 03/01/19 08:44 03/01/19 08:44 - Medications Medications: Current Medications Acetaminophen (Tylenol 325mg Tab) 650 mg PO Q6 PRN PRN Reason: Pain, moderate (4-7) Al Hydrox/Mg Hydrox/Simethicone (Maalox Plus 30 Ml) 30 ml PO Q4 PRN PRN Reason: Indigestion / Heartburn Aspirin (Ecotrin) 81 mg PO DAILY [facility] Last Admin: 03/01/19 08:29 Dose: 81 mg Calcium Carbonate (Oscal) 500 mg PO DAILY [facility] Last Admin: 03/01/19 08:28 Dose: 500 mg Cholecalciferol (Vitamin D) 4,000 intlu PO DAILY [facility] Last Admin: 03/01/19 08:29 Dose: 4,000 intlu Ciprofloxacin (Cipro) 500 mg PO Q12 [facility]; Protocol Last Admin: 03/01/19 08:28 Dose: 500 mg Docusate Sodium (Colace) 100 mg PO BID [facility] Last Admin: 03/01/19 08:28 Dose: 100 mg Enoxaparin Sodium (Lovenox) 40 mg SC DAILY [facility]; Protocol Last Admin: 03/01/19 08:27 Dose: 40 mg Ferrous Sulfate (Feosol) 325 mg PO BIDWM [facility] Last Admin: 03/01/19 08:28 Dose: 325 mg Folic Acid (Folic Acid) 1 mg PO DAILY [facility] Last Admin: 03/01/19 08:28 Dose: 1 mg Magnesium Hydroxide (Milk Of Magnesia) 30 ml PO DAILY PRN PRN Reason: Constipation Multivitamins/Minerals (Therapeutic-M Tab) 1 tab PO DAILY [facility] Last Admin: 03/01/19 08:28 Dose: 1 tab Oxycodone HCl (Oxycodone Immediate Release Tab) 5 mg PO Q6 PRN PRN Reason: 7-/ pain Last Admin: 03/01/19 12:47 Dose: 5 mg Oxycodone HCl (Oxycontin Extended Release Tab) 10 mg PO Q12 [facility] Stop: 03/03/19 21:01 Last Admin: 03/01/19 08:27 Dose: 10 mg Pantoprazole Sodium (Protonix Ec Tab) 20 mg PO DAILY [facility] Last Admin: 03/01/19 08:29 Dose: 20 mg Senna/Docusate Sodium (Senokot S 50 Mg-8.6 Mg) 2 tab PO HS [facility] Last Admin: 02/28/19 21:07 Dose: 2 tab Tramadol HCl (Ultram) 50 mg PO Q6 PRN PRN Reason: pain Last Admin: 02/27/19 17:21 Dose: 50 mg - Labs Labs: 02/27/19 06:12 02/25/19 06:30 PT 11.7 Seconds (9.8-13.1) 02/16/19 06:20 INR 1.0 02/16/19 06:20 - Constitutional Appears: No Acute Distress - Head Exam Head Exam: NORMAL INSPECTION - Eye Exam Eye Exam: PERRL - ENT Exam ENT Exam: Normal Exam - Neck Exam Neck Exam: Normal Inspection - Respiratory Exam Respiratory Exam: NORMAL BREATHING PATTERN - Cardiovascular Exam Cardiovascular Exam: REGULAR RHYTHM - GI/Abdominal Exam GI & Abdominal Exam: Soft, Normal Bowel Sounds - Extremities Exam Extremities Exam: Tenderness (R shoulder, R hip, R knee) Additional comments: R hip surgical incision healing well. 2+ non pitting edema R leg - Back Exam Back Exam: NORMAL INSPECTION - Neurological Exam Neurological Exam: Alert, CN II-XII Intact, Oriented x3. absent: Motor Sensory Deficit - Psychiatric Exam Psychiatric exam: Anxious - Skin Skin Exam: Warm Assessment and Plan (1) Fracture, intertrochanteric, right femur Status: Acute (2) UTI (urinary tract infection) Status: Acute (3) S/P ORIF (open reduction internal fixation) fracture Status: Acute (4) Pain in right hip Status: Acute (5) Pulmonary embolism Status: Acute (6) Status post fall Status: Acute (7) Anemia Status: Acute (8) Tachycardia Status: Acute (9) Right knee pain Status: Acute (10) Reactive thrombocytosis Status: Acute - Assessment and Plan (Free Text) Plan: Continue current Tx, discharge planning for next Tuesday.
[2019-03-01] MEDS: Docusate-Senna 50 mg-8.6 mg Tab PO SCH (21:13)
[2019-03-02] MEDS: Multivitamin With Minerals Tab PO SCH (08:20)
[2019-03-02] MEDS: oxyCODONE 10 mg ER Tab (oxyCONTIN) PO SCH ×2 (08:20→21:54)
[2019-03-02] MEDS: Enoxaparin 40 mg Syringe SC SCH (08:20)
[2019-03-02] MEDS: Cholecalciferol 1,000 INTLU TAB PO SCH (08:20)
[2019-03-02] MEDS: Pantoprazole 20 mg EC Tab PO SCH (08:21)
--- NOTE | 2019-03-02 11:44 | CP.PCM.PN ---
Subjective - Date & Time of Evaluation Date of Evaluation: 03/02/19 Time of Evaluation: 11:41 - Subjective Subjective: Sneha Bains, born 1935 who has been admitted to [address] [facility] following a mechanical fall with right hip fracture and underwent ORIF. Right leg swelling and US was performed and was negative for a DVT. Had right knee pain and I performed a successful right knee injection 02/19/19 X-ray was done and showed some chondrocalcinosis. She was previously independent in care and ambulation She is set to d/c home shortly and surgery was on 02/09/19. Surgeon did not yet want cristin removed there is both glue and cristin present, I cannot even get the staple remover under the clip because of the glue I have instructed nursing to start using acetone to slowly get the glue out of the incision line to allow for a more facile removal of the cristin. Objective - Vital Signs/Intake and Output Vital Signs (last 24 hours): Temp Pulse Resp BP Pulse Ox 98.8 F 108 H 20 118/75 95 03/02/19 08:21 03/02/19 08:21 03/02/19 08:21 03/02/19 08:21 03/02/19 08:21 - Medications Medications: Current Medications Acetaminophen (Tylenol 325mg Tab) 650 mg PO Q6 PRN PRN Reason: Pain, moderate (4-7) Al Hydrox/Mg Hydrox/Simethicone (Maalox Plus 30 Ml) 30 ml PO Q4 PRN PRN Reason: Indigestion / Heartburn Aspirin (Ecotrin) 81 mg PO DAILY [facility] Last Admin: 03/02/19 08:21 Dose: 81 mg Calcium Carbonate (Oscal) 500 mg PO DAILY [facility] Last Admin: 03/02/19 08:21 Dose: 500 mg Cholecalciferol (Vitamin D) 4,000 intlu PO DAILY [facility] Last Admin: 03/02/19 08:20 Dose: 4,000 intlu Ciprofloxacin (Cipro) 500 mg PO Q12 [facility]; Protocol Last Admin: 03/02/19 08:21 Dose: 500 mg Docusate Sodium (Colace) 100 mg PO BID [facility] Last Admin: 03/02/19 08:21 Dose: 100 mg Enoxaparin Sodium (Lovenox) 40 mg SC DAILY [facility]; Protocol Last Admin: 03/02/19 08:20 Dose: 40 mg Ferrous Sulfate (Feosol) 325 mg PO BIDWM [facility] Last Admin: 03/02/19 08:20 Dose: 325 mg Folic Acid (Folic Acid) 1 mg PO DAILY [facility] Last Admin: 03/02/19 08:21 Dose: 1 mg Magnesium Hydroxide (Milk Of Magnesia) 30 ml PO DAILY PRN PRN Reason: Constipation Multivitamins/Minerals (Therapeutic-M Tab) 1 tab PO DAILY [facility] Last Admin: 03/02/19 08:20 Dose: 1 tab Oxycodone HCl (Oxycodone Immediate Release Tab) 5 mg PO Q6 PRN PRN Reason: -09/06 pain Last Admin: 03/01/19 12:47 Dose: 5 mg Oxycodone HCl (Oxycontin Extended Release Tab) 10 mg PO Q12 [facility] Stop: 03/03/19 21:01 Last Admin: 03/02/19 08:20 Dose: 10 mg Pantoprazole Sodium (Protonix Ec Tab) 20 mg PO DAILY [facility] Last Admin: 03/02/19 08:21 Dose: 20 mg Senna/Docusate Sodium (Senokot S 50 Mg-8.6 Mg) 2 tab PO HS [facility] Last Admin: 03/01/19 21:13 Dose: 2 tab Tramadol HCl (Ultram) 50 mg PO Q6 PRN PRN Reason: pain Last Admin: 03/01/19 16:34 Dose: 50 mg - Labs Labs: 02/27/19 06:12 02/25/19 06:30 PT 11.7 Seconds (9.8-13.1) 02/16/19 06:20 INR 1.0 02/16/19 06:20 - Constitutional Appears: Non-toxic, No Acute Distress - Head Exam Head Exam: ATRAUMATIC, NORMAL INSPECTION, NORMOCEPHALIC - Eye Exam Eye Exam: EOMI - ENT Exam ENT Exam: Mucous Membranes Moist - Respiratory Exam Respiratory Exam: NORMAL BREATHING PATTERN - Cardiovascular Exam Cardiovascular Exam: REGULAR RHYTHM - GI/Abdominal Exam GI & Abdominal Exam: absent: Firm - Extremities Exam Extremities Exam: absent: Calf Tenderness - Neurological Exam Neurological Exam: Alert, CN II-XII Intact - Psychiatric Exam Psychiatric exam: Normal Affect, Normal Mood - Skin Skin Exam: Warm (cristin on the right hip as described) Assessment and Plan - Assessment and Plan (Free Text) Assessment: s/p right ORIF after fracture not to yet remove cristin as per ortho she is going to [place] and will need to follow up with physician there to take them out PT/OT to continue to help increase functional independence Pain: controlled Vascular: no evidence of DVT GI: No evidence of constipation or diarrhea Patient continues to be an excellent TCU rehabilitation candidate and will have continued focused PT, OT and recreational therapy to help facilitate a safe and appropriate d/c plan
[2019-03-02] MEDS: oxyCODONE 5 mg Immediate Release Tab PO PRN (15:43)
--- NOTE | 2019-03-02 17:12 | CP.PCM.PN ---
Subjective - Date & Time of Evaluation Date of Evaluation: 03/02/19 Time of Evaluation: 15:30 - Subjective Subjective: F/U Fx R femur, s/p ORIF Objective - Vital Signs/Intake and Output Vital Signs (last 24 hours): Temp Pulse Resp BP Pulse Ox 98.8 F 108 H 20 118/75 95 03/02/19 08:21 03/02/19 08:21 03/02/19 08:21 03/02/19 08:21 03/02/19 08:21 - Medications Medications: Current Medications Acetaminophen (Tylenol 325mg Tab) 650 mg PO Q6 PRN PRN Reason: Pain, moderate (4-7) Al Hydrox/Mg Hydrox/Simethicone (Maalox Plus 30 Ml) 30 ml PO Q4 PRN PRN Reason: Indigestion / Heartburn Aspirin (Ecotrin) 81 mg PO DAILY [facility] Last Admin: 03/02/19 08:21 Dose: 81 mg Calcium Carbonate (Oscal) 500 mg PO DAILY [facility] Last Admin: 03/02/19 08:21 Dose: 500 mg Cholecalciferol (Vitamin D) 4,000 intlu PO DAILY [facility] Last Admin: 03/02/19 08:20 Dose: 4,000 intlu Ciprofloxacin (Cipro) 500 mg PO Q12 [facility]; Protocol Last Admin: 03/02/19 08:21 Dose: 500 mg Docusate Sodium (Colace) 100 mg PO BID [facility] Last Admin: 03/02/19 16:17 Dose: 100 mg Enoxaparin Sodium (Lovenox) 40 mg SC DAILY [facility]; Protocol Last Admin: 03/02/19 08:20 Dose: 40 mg Ferrous Sulfate (Feosol) 325 mg PO BIDWM [facility] Last Admin: 03/02/19 16:17 Dose: 325 mg Folic Acid (Folic Acid) 1 mg PO DAILY [facility] Last Admin: 03/02/19 08:21 Dose: 1 mg Magnesium Hydroxide (Milk Of Magnesia) 30 ml PO DAILY PRN PRN Reason: Constipation Multivitamins/Minerals (Therapeutic-M Tab) 1 tab PO DAILY [facility] Last Admin: 03/02/19 08:20 Dose: 1 tab Oxycodone HCl (Oxycodone Immediate Release Tab) 5 mg PO Q6 PRN PRN Reason: 7-10/10 pain Last Admin: 03/02/19 15:43 Dose: 5 mg Oxycodone HCl (Oxycontin Extended Release Tab) 10 mg PO Q12 [facility] Stop: 03/03/19 21:01 Last Admin: 03/02/19 08:20 Dose: 10 mg Pantoprazole Sodium (Protonix Ec Tab) 20 mg PO DAILY [facility] Last Admin: 03/02/19 08:21 Dose: 20 mg Senna/Docusate Sodium (Senokot S 50 Mg-8.6 Mg) 2 tab PO HS [facility] Last Admin: 03/01/19 21:13 Dose: 2 tab Tramadol HCl (Ultram) 50 mg PO Q6 PRN PRN Reason: 4-6 pain Last Admin: 03/01/19 16:34 Dose: 50 mg - Labs Labs: 02/27/19 06:12 02/25/19 06:30 PT 11.7 Seconds (9.8-13.1) 02/16/19 06:20 INR 1.0 02/16/19 06:20 - Constitutional Appears: No Acute Distress - Head Exam Head Exam: NORMAL INSPECTION - Eye Exam Eye Exam: PERRL - ENT Exam ENT Exam: Normal Exam - Neck Exam Neck Exam: Normal Inspection - Respiratory Exam Respiratory Exam: NORMAL BREATHING PATTERN - Cardiovascular Exam Cardiovascular Exam: REGULAR RHYTHM - GI/Abdominal Exam GI & Abdominal Exam: Soft, Normal Bowel Sounds - Extremities Exam Extremities Exam: Tenderness (R shoulder, R hip, R knee) Additional comments: R hip surgical incision healing well. 2+ pedal edema BLE - Back Exam Back Exam: NORMAL INSPECTION - Neurological Exam Neurological Exam: Alert, Awake, Oriented x3. absent: Motor Sensory Deficit - Psychiatric Exam Psychiatric exam: Anxious - Skin Skin Exam: Warm Assessment and Plan (1) Fracture, intertrochanteric, right femur Status: Acute (2) UTI (urinary tract infection) Status: Acute (3) S/P ORIF (open reduction internal fixation) fracture Status: Acute (4) Pain in right hip Status: Acute (5) Pulmonary embolism Status: Acute (6) Status post fall Status: Acute (7) Anemia Status: Acute (8) Tachycardia Status: Acute (9) Right knee pain Status: Acute (10) Reactive thrombocytosis Status: Acute
[2019-03-02] MEDS: Docusate-Senna 50 mg-8.6 mg Tab PO SCH (21:56)
[2019-03-03] MEDS: Multivitamin With Minerals Tab PO SCH (08:26)
[2019-03-03] MEDS: oxyCODONE 10 mg ER Tab (oxyCONTIN) PO SCH ×2 (08:26→21:12)
[2019-03-03] MEDS: Enoxaparin 40 mg Syringe SC SCH (08:26)
[2019-03-03] MEDS: Cholecalciferol 1,000 INTLU TAB PO SCH (08:27)
[2019-03-03] MEDS: Pantoprazole 20 mg EC Tab PO SCH (08:27)
--- NOTE | 2019-03-03 08:49 | RAD ---
PROCEDURE: Right Hip Radiographs. HISTORY: hip xray COMPARISON: Right femur radiographs 02/10/2019. TECHNIQUE: 2 views obtained. FINDINGS: BONES: No interval change in hardware deployment is appreciate the right femur status post lengthy intramedullary nail and cross linking member deployment throughout the right femur status post ORIF for comminuted proximal right femoral fracture. Lateral skin cristin remain in place at the upper right thigh with stable limited postoperative soft tissue changes identified. No interval fracture appreciated. Intertrochanteric fracture remains reduced. JOINTS: Degenerated right hip and knee joints reiterated. SOFT TISSUES: Normal. OTHER FINDINGS: None. IMPRESSION: Status post ORIF unchanged with intertrochanteric fracture remaining reduced. No hardware failure appreciable. Limited postoperative changes again evident proximal lateral thigh soft tissues.
[2019-03-03] MEDS: oxyCODONE 5 mg Immediate Release Tab PO PRN ×2 (10:57→18:44)
[2019-03-03] MEDS: Docusate-Senna 50 mg-8.6 mg Tab PO SCH (21:13)
[2019-03-04] MEDS: Enoxaparin 40 mg Syringe SC SCH (10:25)
[2019-03-04] MEDS: oxyCODONE 10 mg ER Tab (oxyCONTIN) PO SCH ×2 (10:26→21:28)
[2019-03-04] MEDS: Multivitamin With Minerals Tab PO SCH (10:27)
[2019-03-04] MEDS: Pantoprazole 20 mg EC Tab PO SCH (10:27)
[2019-03-04] MEDS: Cholecalciferol 1,000 INTLU TAB PO SCH (10:28)
--- NOTE | 2019-03-04 16:56 | CP.PCM.PN ---
Subjective - Date & Time of Evaluation Date of Evaluation: 03/04/19 Time of Evaluation: 13:20 - Subjective Subjective: Minimal pain right hip controlled with pain medication, no pain in the right knee, doing well with PT, ambulating with walker and PT help Objective - Vital Signs/Intake and Output Vital Signs (last 24 hours): Temp Pulse Resp BP Pulse Ox 98.2 F 91 H 20 111/62 97 03/04/19 15:35 03/04/19 15:35 03/04/19 15:35 03/04/19 15:35 03/04/19 15:35 - Medications Medications: Current Medications Acetaminophen (Tylenol 325mg Tab) 650 mg PO Q6 PRN PRN Reason: Pain, moderate (4-7) Al Hydrox/Mg Hydrox/Simethicone (Maalox Plus 30 Ml) 30 ml PO Q4 PRN PRN Reason: Indigestion / Heartburn Aspirin (Ecotrin) 81 mg PO DAILY [facility] Last Admin: 03/04/19 10:24 Dose: 81 mg Calcium Carbonate (Oscal) 500 mg PO DAILY [facility] Last Admin: 03/04/19 10:26 Dose: 500 mg Cholecalciferol (Vitamin D) 4,000 intlu PO DAILY [facility] Last Admin: 03/04/19 10:28 Dose: 4,000 intlu Ciprofloxacin (Cipro) 500 mg PO Q12 [facility]; Protocol Last Admin: 03/04/19 10:23 Dose: 500 mg Docusate Sodium (Colace) 100 mg PO BID [facility] Last Admin: 03/04/19 16:56 Dose: 100 mg Enoxaparin Sodium (Lovenox) 40 mg SC DAILY [facility]; Protocol Last Admin: 03/04/19 10:25 Dose: 40 mg Ferrous Sulfate (Feosol) 325 mg PO BIDWM [facility] Last Admin: 03/04/19 16:56 Dose: 325 mg Folic Acid (Folic Acid) 1 mg PO DAILY [facility] Last Admin: 03/04/19 10:24 Dose: 1 mg Magnesium Hydroxide (Milk Of Magnesia) 30 ml PO DAILY PRN PRN Reason: Constipation Multivitamins/Minerals (Therapeutic-M Tab) 1 tab PO DAILY [facility] Last Admin: 03/04/19 10:27 Dose: 1 tab Oxycodone HCl (Oxycodone Immediate Release Tab) 5 mg PO Q6 PRN PRN Reason: 7-09/06 pain Last Admin: 03/03/19 18:44 Dose: 5 mg Oxycodone HCl (Oxycontin Extended Release Tab) 10 mg PO Q12 [facility] Stop: 03/07/19 09:01 Last Admin: 03/04/19 10:26 Dose: 10 mg Pantoprazole Sodium (Protonix Ec Tab) 20 mg PO DAILY [facility] Last Admin: 03/04/19 10:27 Dose: 20 mg Senna/Docusate Sodium (Senokot S 50 Mg-8.6 Mg) 2 tab PO HS [facility] Last Admin: 03/03/19 21:13 Dose: 2 tab Tramadol HCl (Ultram) 50 mg PO Q6 PRN PRN Reason: -05/07 pain Last Admin: 03/01/19 16:34 Dose: 50 mg - Labs Labs: 02/27/19 06:12 02/25/19 06:30 PT 11.7 Seconds (9.8-13.1) 02/16/19 06:20 INR 1.0 02/16/19 06:20 - Constitutional Appears: No Acute Distress - Head Exam Head Exam: NORMAL INSPECTION - Eye Exam Eye Exam: PERRL - ENT Exam ENT Exam: Normal Exam - Neck Exam Neck Exam: Normal Inspection - Respiratory Exam Respiratory Exam: NORMAL BREATHING PATTERN - Cardiovascular Exam Cardiovascular Exam: REGULAR RHYTHM - GI/Abdominal Exam GI & Abdominal Exam: Soft, Normal Bowel Sounds - Extremities Exam Extremities Exam: Tenderness (R shoulder, R hip, R knee) Additional comments: R hip surgical incision healing well, 2+ non pitting edema R leg - Back Exam Back Exam: NORMAL INSPECTION - Neurological Exam Neurological Exam: Alert, CN II-XII Intact, Oriented x3. absent: Motor Sensory Deficit - Psychiatric Exam Psychiatric exam: Anxious - Skin Skin Exam: Warm Assessment and Plan (1) Fracture, intertrochanteric, right femur Status: Acute (2) UTI (urinary tract infection) Status: Acute (3) S/P ORIF (open reduction internal fixation) fracture Status: Acute (4) Pain in right hip Status: Acute (5) Pulmonary embolism Status: Acute (6) Status post fall Status: Acute (7) Anemia Status: Acute (8) Tachycardia Status: Acute (9) Right knee pain Status: Acute (10) Reactive thrombocytosis Status: Acute - Assessment and Plan (Free Text) Plan: Continue Oxycodone, OxyContin, Cipro, DC Lovenox today, do not remove cristin as per Orthopedic [employer] sales consultant up to 03-09-19 in [facility], begin Xarelto 10mg od in am until Patient is able to walk as per Airline Managerial Supervisor [employer] sales consultant, discharge in am Tuesday to [place], [place]
[2019-03-04] MEDS: Docusate-Senna 50 mg-8.6 mg Tab PO SCH (21:28)
[2019-03-05 08:31] VITALS: BP 127/82; PULSE 101; TEMP 98.9; O2SAT 96
[2019-03-05] MEDS: Cholecalciferol 1,000 INTLU TAB PO SCH (08:51)
[2019-03-05] MEDS: oxyCODONE 10 mg ER Tab (oxyCONTIN) PO SCH (08:51)
[2019-03-05] MEDS: Enoxaparin 40 mg Syringe SC SCH (08:52)
[2019-03-05] MEDS: Pantoprazole 20 mg EC Tab PO SCH (08:53)
[2019-03-05] MEDS: Multivitamin With Minerals Tab PO SCH (08:53)
[2019-03-05 08:57] LABS: INR 1.1; PROTHROMBIN TIME 12.4 Seconds (9.8-13.1)
[2019-03-05 09:07] LABS: ALBUMIN 3.7 g/dL (3.5-5.0); ALT/SGPT 38 U/L (9-52); AST/SGOT 44 U/L (14-36); BLOOD UREA NITROGEN 23 mg/dl (7-17); CALCIUM 9.6 mg/dL (8.4-10.2); GFR NON-AFRICAN AMERICAN > 60
--- NOTE | 2019-03-05 10:17 | CP.PCM.PN ---
Subjective - Date & Time of Evaluation Date of Evaluation: 03/05/19 Time of Evaluation: 10:00 - Subjective Subjective: Patient seen and examined at bedside comfortable. Daughter at bedside. Pain well controlled. Tolerating PT well. Scheduled for d/c to rehab in [place] today. No other complaints. Objective - Vital Signs/Intake and Output Vital Signs (last 24 hours): Temp Pulse Resp BP Pulse Ox 98.9 F 101 H 20 127/82 96 03/05/19 09:59 03/05/19 09:59 03/05/19 09:59 03/05/19 09:59 03/05/19 09:59 - Medications Medications: Current Medications Acetaminophen (Tylenol 325mg Tab) 650 mg PO Q6 PRN PRN Reason: Pain, moderate (4-7) Al Hydrox/Mg Hydrox/Simethicone (Maalox Plus 30 Ml) 30 ml PO Q4 PRN PRN Reason: Indigestion / Heartburn Aspirin (Ecotrin) 81 mg PO DAILY [facility] Last Admin: 03/05/19 08:53 Dose: 81 mg Calcium Carbonate (Oscal) 500 mg PO DAILY [facility] Last Admin: 03/05/19 08:52 Dose: 500 mg Cholecalciferol (Vitamin D) 4,000 intlu PO DAILY [facility] Last Admin: 03/05/19 08:51 Dose: 4,000 intlu Ciprofloxacin (Cipro) 500 mg PO Q12 [facility]; Protocol Last Admin: 03/05/19 08:52 Dose: 500 mg Docusate Sodium (Colace) 100 mg PO BID [facility] Last Admin: 03/05/19 08:53 Dose: 100 mg Enoxaparin Sodium (Lovenox) 40 mg SC DAILY [facility]; Protocol Last Admin: 03/05/19 08:52 Dose: Not Given Ferrous Sulfate (Feosol) 325 mg PO BIDWM [facility] Last Admin: 03/05/19 08:52 Dose: 325 mg Folic Acid (Folic Acid) 1 mg PO DAILY [facility] Last Admin: 03/05/19 08:51 Dose: 1 mg Magnesium Hydroxide (Milk Of Magnesia) 30 ml PO DAILY PRN PRN Reason: Constipation Multivitamins/Minerals (Therapeutic-M Tab) 1 tab PO DAILY [facility] Last Admin: 03/05/19 08:53 Dose: 1 tab Oxycodone HCl (Oxycodone Immediate Release Tab) 5 mg PO Q6 PRN PRN Reason: 7-09/06 pain Last Admin: 03/03/19 18:44 Dose: 5 mg Oxycodone HCl (Oxycontin Extended Release Tab) 10 mg PO Q12 [facility] Stop: 03/07/19 09:01 Last Admin: 03/05/19 08:51 Dose: 10 mg Pantoprazole Sodium (Protonix Ec Tab) 20 mg PO DAILY [facility] Last Admin: 03/05/19 08:53 Dose: 20 mg Rivaroxaban (Xarelto) 10 mg PO DAILY [facility]; Protocol Senna/Docusate Sodium (Senokot S 50 Mg-8.6 Mg) 2 tab PO HS [facility] Last Admin: 03/04/19 21:28 Dose: 2 tab Tramadol HCl (Ultram) 50 mg PO Q6 PRN PRN Reason: -05/07 pain Last Admin: 03/04/19 17:00 Dose: 50 mg - Labs Labs: 02/27/19 06:12 03/05/19 08:30 PT 12.4 Seconds (9.8-13.1) 03/05/19 08:30 INR 1.1 03/05/19 08:30 - Extremities Exam Additional comments: RLE: Dressings CDI diffuse thigh tenderness mild thigh swelling improving sensation intact SP/DP/TN motor intact EHL/FHL/TA/G pedal pulse intact calves soft NT Assessment and Plan (1) Fracture, intertrochanteric, right femur Assessment & Plan: POD#24 s/p R femur ORIF w/ IM nail Mera to be removed on March 09, 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 Rodríguez in agreement Status: Acute
[2019-03-05] MEDS: oxyCODONE 5 mg Immediate Release Tab PO PRN (11:21)
[2019-03-05 11:25] LABS: HEMOGLOBIN 11.2 g/dL (12.0-16.0); MEAN CELL VOLUME 96.2 fl (81.0-99.0); MEAN CORPUSCULAR HEMOGLOBIN 31.8 pg (27.0-31.0); MEAN CORPUSCULAR HGB CONC 33.1 g/dL (33.0-37.0); RBC 3.52 Mil/uL (3.80-5.20); RED CELL DISTRIBUTION WIDTH 16.8 % (11.5-14.5); WHITE BLOOD COUNT 6.5 K/uL (4.8-10.8)
--- NOTE | 2019-03-05 17:23 | CP.PCM.DIS ---
Provider - Provider Date of Admission: 02/13/19 17:47 Attending physician: Kwaku Florian MD Consults: 02/13/19 18:18 Case Management Referral Routine Comment: Physician Instructions: Reason For Exam: Reason for Referral: Discharge Planning 02/13/19 18:22 Physiatry Consult Routine Comment: s/p rt hip orif Consulting Provider: Gary Vergara Consulting Physician: Gary Vergara Reason for Consult: s/p rt hip orif 02/13/19 18:43 Orthopedic Consult Routine Comment: Consulting Provider: Trell Marks Consulting Physician: Trell Marks Reason for Consult: s/p rt hio orif 02/21/19 12:26 Hematology Oncology Consult Routine Comment: Consulting Provider: Ihsan Duran Consulting Physician: Ihsan Duran Reason for Consult: ruled out PE, DVT ppx for air travel Diagnosis - Discharge Diagnosis (1) Fracture, intertrochanteric, right femur Status: Acute Priority: High (2) UTI (urinary tract infection) Status: Acute (3) S/P ORIF (open reduction internal fixation) fracture Status: Acute (4) Pain in right hip Status: Acute Priority: High (5) Pulmonary embolism Status: Acute Priority: High (6) Status post fall Status: Acute Priority: High (7) Anemia Status: Acute Priority: High (8) Tachycardia Status: Acute (9) Right knee pain Status: Acute (10) Reactive thrombocytosis Status: Acute Hospital Course - Lab Results Lab Results: Micro Results 02/23/19 12:35 Blood-Venous Blood Culture - Final NO GROWTH AFTER 5 DAYS 02/23/19 12:35 Blood-Venous Gram Stain - Final TEST NOT PERFORMED 02/23/19 12:30 Blood-Venous Blood Culture - Final NO GROWTH AFTER 5 DAYS 02/23/19 12:30 Blood-Venous Gram Stain - Final TEST NOT PERFORMED 02/19/19 22:00 Urine,Catheterized Urine Culture - Final Escherichia Coli Enterococcus Faecalis 02/16/19 07:55 Urine,Clean Catch Urine Culture - Final MULTIPLE SPECIES. SUGGEST REPEAT SPECIMEN. Most Recent Lab Values WBC 6.5 K/uL (4.8-10.8) 03/05/19 11:10 RBC 3.52 Mil/uL (3.80-5.20) L 03/05/19 11:10 Hgb 11.2 g/dL (12.0-16.0) L 03/05/19 11:10 Hct 33.9 % (34.0-47.0) L 03/05/19 11:10 MCV 96.2 fl (81.0-99.0) 03/05/19 11:10 MCH 31.8 pg (27.0-31.0) H 03/05/19 11:10 MCHC 33.1 g/dL (33.0-37.0) 03/05/19 11:10 RDW 16.8 % (11.5-14.5) H 03/05/19 11:10 Plt Count 454 K/uL (130-400) H D 03/05/19 11:10 Differential Comment 02/24/19 06:05 PT 12.4 Seconds (9.8-13.1) 03/05/19 08:30 INR 1.1 03/05/19 08:30 Sodium 138 mmol/l (132-148) 03/05/19 08:30 Potassium 4.3 MMOL/L (3.6-5.0) 03/05/19 08:30 Chloride 97 mmol/L (98-107) L 03/05/19 08:30 Carbon Dioxide 32 mmol/L (22-30) H 03/05/19 08:30 Anion Gap 13 (10-20) 03/05/19 08:30 BUN 23 mg/dl (7-17) H 03/05/19 08:30 Creatinine 0.6 mg/dl (0.7-1.2) L 03/05/19 08:30 Est GFR ( Amer) > 60 03/05/19 08:30 Est GFR (Non-Af Amer) > 60 03/05/19 08:30 Random Glucose 137 mg/dL (65-105) H 03/05/19 08:30 Calcium 9.6 mg/dL (8.4-10.2) 03/05/19 08:30 Total Bilirubin 0.5 mg/dl (0.2-1.3) 03/05/19 08:30 AST 44 U/L (14-36) H 03/05/19 08:30 ALT 38 U/L (9-52) 03/05/19 08:30 Alkaline Phosphatase 234 U/L (38-126) H D 03/05/19 08:30 Total Protein 7.3 G/DL (6.3-8.2) 03/05/19 08:30 Albumin 3.7 g/dL (3.5-5.0) 03/05/19 08:30 Globulin 3.6 gm/dL (2.2-3.9) 03/05/19 08:30 Albumin/Globulin Ratio 1.0 (1.0-2.1) 03/05/19 08:30 Urine Color Rubina (YELLOW) 02/20/19 01:39 Urine Clarity Cloudy (Clear) 02/20/19 01:39 Urine pH 6.0 (5.0-8.0) 02/20/19 01:39 Ur Specific Phillips 1.012 (1.003-1.030) 02/20/19 01:39 Urine Protein Negative mg/dL (NEGATIVE) 02/20/19 01:39 Urine Glucose (UA) Neg mg/dL (NEGATIVE) 02/20/19 01:39 Urine Ketones Negative mg/dL (NEGATIVE) 02/20/19 01:39 Urine Blood Small (NEGATIVE) 02/20/19 01:39 Urine Nitrate Negative (NEGATIVE) 02/20/19 01:39 Urine Bilirubin Negative (NEGATIVE) 02/20/19 01:39 Urine Urobilinogen 4.0 mg/dL (0.2-1.0) H 02/20/19 01:39 Ur Leukocyte Esterase Neg [place]/uL (Negative) 02/20/19 01:39 Urine RBC (Auto) 1 /hpf (0-3) 02/20/19 01:39 Urine Microscopic WBC 1 /hpf (0-5) 02/20/19 01:39 Ur Squamous Epith Cells 1 /hpf (0-5) 02/20/19 01:39 Urine Bacteria Occ (<OCC) H 02/20/19 01:39 Discharge Exam - Head Exam Head Exam: NORMAL INSPECTION Discharge Plan - Follow Up Plan Condition: GOOD Disposition: TRANSF TO SNF Instructions: Total Hip Replacement (DC), Urinary Tract Infection in Women (DC), Urinary Tract Infection in Men (DC), Dysuria (GEN) Additional Instructions: Follow up for March 09 for staple removal. follow up with primary within 7 days. Continue xarelto 10 mg daily till ambulating. Follow up with urinalysis 10 days after discharge
== END 2019-03-05 13:15 | DRG 559 ==
LOC: H.TCU 17:47
PROVIDERS: ADMIT Internal Medicine Pulmonary Disease; ATTEND Internal Medicine Pulmonary Disease
PROC: F07Z8FZ Transfer Training Treatment using Assistive, Adaptive, Supportive or Protective Equipment (ICD-10-PCS; 2019-02-13)
PROC: F07Z5FZ Bed Mobility Treatment using Assistive, Adaptive, Supportive or Protective Equipment (ICD-10-PCS; 2019-02-13)
PROC: F08Z1FZ Dressing Techniques Treatment using Assistive, Adaptive, Supportive or Protective Equipment (ICD-10-PCS; 2019-02-13)
PROC: F08Z0FZ Bathing/Showering Techniques Treatment using Assistive, Adaptive, Supportive or Protective Equipment (ICD-10-PCS; 2019-02-13)
PROC: F07Z9FZ Gait Training/Functional Ambulation Treatment using Assistive, Adaptive, Supportive or Protective Equipment (ICD-10-PCS; 2019-02-13)
PROC: F07L6GZ Therapeutic Exercise Treatment of Musculoskeletal System - Lower Back / Lower Extremity using Aerobic Endurance and Conditioning Equipment (ICD-10-PCS; 2019-02-13)
PROC: F07L7ZZ Manual Therapy Techniques Treatment of Musculoskeletal System - Lower Back / Lower Extremity (ICD-10-PCS; 2019-02-13)
PROC: 3E0U3BZ Introduction of Anesthetic Agent into Joints, Percutaneous Approach (ICD-10-PCS; principal; 2019-02-19)
PROC: 3E0U33Z Introduction of Anti-inflammatory into Joints, Percutaneous Approach (ICD-10-PCS; 2019-02-19)
DX: S72.141D Displaced intertrochanteric fracture of right femur, subsequent encounter for closed fracture with routine healing (principal); I26.99 Other pulmonary embolism without acute cor pulmonale; D62 Acute posthemorrhagic anemia; N39.0 Urinary tract infection, site not specified; W19.XXXD Unspecified fall, subsequent encounter; Z86.711 Personal history of pulmonary embolism; R00.0 Tachycardia, unspecified; E55.9 Vitamin D deficiency, unspecified; K59.00 Constipation, unspecified; M11.261 Other chondrocalcinosis, right knee; B96.20 Unspecified Escherichia coli [E. coli] as the cause of diseases classified elsewhere; B95.62 Methicillin resistant Staphylococcus aureus infection as the cause of diseases classified elsewhere; D47.3 Essential (hemorrhagic) thrombocythemia